=== PATIENT | male | born 1940 | race Caucasian/White ===

== ENCOUNTER 2018-06-10 19:14 | Inpatient (IN) ==
[2018-06-10] MEDS ORDERED: NS 1,000 ML IV ONE (20:51)
[2018-06-10] MEDS ORDERED: ALBUTEROL 2.5mg/3ml (0.083%) NEB AEROSOL ONE (20:52)
--- NOTE | 2018-06-10 20:55 | Emergency Department Report ---
General Adult HPI - General Chief complaint: Upper Respiratory Infection Stated complaint: dizzy, pos food poisoning Time Seen by Provider: 06/10/18 20:45 Source: patient, family Mode of arrival: ambulatory Limitations: no limitations - History of Present Illness HPI narrative: Patient began feeling ill 5 days ago, with cough, chills, nausea vomiting and diarrhea. Stomach symptoms lasted approximately 2-3 days and now resolved, however the patient has been having dizziness especially with standing, persistent cough, and increase of chronic low back pain. Earlier today the patient coughed vigorously, felt something pop in his back, and is actually feeling better with his back pain at this time. Patient's current complaints are primarily the cough generalized weakness and a feeling of lightheadedness and dizziness that are persistent. Pt admits decreased appetite with great decreased oral intake of fluids and solids of the past 2 days, but states that his appetite has improved over the last 2-3 hours. - Related Data Home Medications Medication Instructions Recorded Confirmed Acetaminophen [Acetaminophen Extra 1,000 mg PO Q6H PRN 06/10/18 06/10/18 Strength] Amlodipine [Norvasc] 5 mg PO DAILY 06/10/18 06/10/18 Aspirin/Acetaminophen/Caffeine 2 tab PO PRN PRN 06/10/18 06/10/18 [Excedrin Extra Strength Caplet] Cholecalciferol (Vitamin D3) 1,000 unit PO 06/10/18 06/10/18 [Vitamin D3] Citalopram [Celexa] 20 mg PO 06/10/18 06/10/18 Ezetimibe 10 mg PO 06/10/18 06/10/18 Latanoprost 1 drop EACH EYE 06/10/18 06/10/18 Lisinopril [Prinivil] 10 mg PO DAILY 06/10/18 06/10/18 Metoprolol Tartrate [Lopressor] 50 mg PO BID 06/10/18 06/10/18 Omeprazole [Prilosec] 20 mg PO ACB 06/10/18 06/10/18 Simvastatin [Zocor] 40 mg PO 06/10/18 06/10/18 Warfarin [Coumadin] 2.5 mg PO SUTUWETHSA@199906/10/18 06/10/18 Warfarin [Coumadin] 5 mg PO MOFR@199906/10/18 06/10/18 Allergies Allergy/AdvReac Type Severity Reaction Status Date / Time No Known Drug Allergies Allergy Unknown Verified 06/10/18 20:53 Review of Systems All systems: reviewed and negative except as stated PFS Patient Stated Medical History Transient Ischemic Attacks ( Yes TIA) Hypertension Yes Clinic Medical History (Last Updated 10/29/17 @ 14:32 by Liz Nava APRN) Atrial fibrillation (Acute Medical) Depression (Acute Medical) GERD (gastroesophageal reflux disease) (Acute Medical) HTN (hypertension) (Acute Medical) Rheumatic fever with heart involvement (Acute Medical) Stroke (Acute Medical) Surgical History: colonoscopy 2009. Denies major surgical procedures Family History: Family History (Last Updated 10/29/17 @ 14:27 by Liz Nava APRN) Father Cancer of lung Heart attack Mother High blood pressure Heart failure - Social History Smoking status: Former smoker Substance use type: does not use Alcohol intake frequency: does not drink Current residence: Apartment/Private Home Physical Exam - Limitations Limitations: no limitations - General General appearance: alert - Normal Exams: Head:: Normocephalic without trauma Eyes:: Pupils are PERRLA w/ EOMI, No scleral icterus, irritation, or foreign bodies noted ENMT:: No facial trauma, nasal exudates, pharyngeal erythema, or exudates are noted Neck:: Full range of motion, without adenopathy, JVD, bruits or thyromegaly Cardiovascular:: Regular rate and rhythm, without murmur or gallop, Pulses 2+ all extremities, capillary refill, <2 seconds all extremities Abdomen:: Bowel sounds positive, soft, non-tender, non-distended, no hepatosplenomegaly, masses or bruits noted Lymphatic:: No lymphadenopathy, or lymphedema noted Integumentary:: No rashes, hives, or bruising noted, hair and nails, without abnormality Neurological:: Patient is alert, and oriented, cranial nerves, motor/sensory/ cerebellar, exams w/o gross deficits, to observation Psychiatric:: Patient exhibits, appropriate attention, emotion and affect - Chest Chest inspection: Present: normal inspection, symmetric chest wall rise. Absent : tenderness - Respiratory Respiratory exam: Absent: normal lung sounds bilaterally (course bilateral with rhonchi on the right lateral and right base only), respiratory distress, wheezes , stridor, accessory muscle use, prolonged expiratory phase - Back Exam Back exam: Present: normal inspection, full ROM, tenderness (mild diffuse lumbar tenderness in the paraspinal region, no midline tenderness. Palpation of the area makes the pain improved.) Course Vital Signs Respiratory Rate 28 H 06/10/18 20:55 Pulse Oximetry 94 06/10/18 20:55 Pulse Rate 102 H 06/10/18 22:08 Respiratory Rate 24 06/10/18 22:08 Blood Pressure 127/75 06/10/18 22:08 Pulse Oximetry 92 06/10/18 22:08 Medical Decision Making - MDM Narrative Medical decision making narrative: Patient declines medication for pain or nausea Patient is given albuterol treatment times one, and 1 L normal saline IV fluid bolus CBC - white blood cell elevation CXR - right middle lobe consolidation consistent with acute community-acquired right middle lobe pneumonia CMP - minimal after maladies consistent with his illness UA - pending Lactate - normal While discussing with the patient his condition and diagnoses, patient is too weak and frail at this time to take care of himself at home, and feels like he needs hospitalization. Rocephin and Zithromax were started and IV - patient is discussed with Dr. Clemons, we will admit to medical, for IV antibiotics and respiratory therapy IV fluids and reevaluation tomorrow. - Lab Data Result diagrams: 06/10/18 21:00 06/10/18 20:59 Lab Results 06/10/18 06/10/18 06/10/18 Range/Units 20:59 21:00 21:31 WBC 13.2 H (4.5-11.0) T/MM3 RBC 4.43 L (4.50-5.90) M/MM3 Hgb 14.1 (13.5-17.5) GM/DL Hct 41.8 (41-53) % MCV 94.4 (80-100) UM3 MCH 31.8 (26-34) UUG MCHC 33.7 (31-37) GM/DL RDW Std Deviation 45.9 (36.9-50.2) FL Plt Count 141 (130-400) T/MM3 MPV 10.7 (9.4-12.4) UM3 Immature Gran % (Auto) Not performed Neut % (Auto) Not performed Lymph % (Auto) Not performed [place] % (Auto) Not performed Eos % (Auto) Not performed Baso % (Auto) Not performed Neut # (Auto) Not performed Lymph # (Auto) Not performed [place] # (Auto) Not performed Eos # (Auto) Not performed Baso # (Auto) Not performed Abs Immat Gran (auto) Not performed Neutrophils % (Manual) 53.0 (33-66) % Band Neutrophils % 19.0 H (0-6) % Lymphocytes % (Manual) 17.0 L (23-45) % Monocytes % (Manual) 11.0 H (0-9.0) % Neutrophils # (Manual) 7.0 (1.8-7.7) T/MM3 Band Neutrophils # 2.5 T/MM3 Lymphocytes # (Manual) 2.2 (1-4.8) T/MM3 Monocytes # (Manual) 1.5 H (0-0.8) T/MM3 RBC Morph Comment Normal Turbidity < 20 (0-20) Sodium 138 (136-146) MEQ/L Potassium 3.5 L (3.6-5) MEQ/L Chloride 101 (98-107) MEQ/L Carbon Dioxide 25 (22-30) MEQ/L Anion Gap 12 (5-15) meq/L BUN 25.0 H (9-20) MG/DL Creatinine 1.0 (0.8-1.5) mg/dL Estimated Creat Clear Not performed GFR Calculation 73 (>60) mL/min BUN/Creatinine Ratio 25 (6-26) RATIO Glucose 127 H (75-110) MG/DL Calculated Osmolality 272 (261-280) MOSM/KG Calcium 9.1 (8.4-10.2) MG/DL Total Bilirubin 1.20 (0.20-1.30) MG/DL Conjugated Bilirubin 0.00 (0.00-0.30) mg/dL Unconjugated Bilirubin 1.10 (0.00-1.1) mg/dL Icterus Index < 2 (0-7) AST 92 H (17-59) U/L ALT 66 H (1-50) U/L Alkaline Phosphatase 110 (38-126) U/L Total Protein 7.5 (6.3-8.2) g/dL Albumin 4.0 (3.5-5.0) g/dL Globulin 3.5 (2.4-3.6) G/DL Albumin/Globulin Ratio 1.1 (1.1-2.2) RATIO Plasma Lactate 1.4 (0.6-2.2) MMOL/L Specimen Hemolysis < 15 (0-25) Ur Collection Type Urine, void-cc/notcc Urine Color Shayna (YELLOW) Urine Clarity Clear Urine pH 5.5 (5.0-8.0) Ur Specific Hector 1.025 (1.015-1.025) Urine Protein 3+ A (NEGATIVE) Urine Glucose (UA) Negative (NEGATIVE) Urine Ketones Trace A (NEGATIVE) Urine Occult Blood 3+ A (NEGATIVE) Urine Nitrate Negative (NEGATIVE) Urine Bilirubin 1+ A (NEGATIVE) Urine Urobilinogen 1.0 (NORMAL) EU/DL Ur Leukocyte Esterase Negative (NEGATIVE) Urine RBC 0-1 (0-3) /HPF Urine WBC 1-3 (0-5) /HPF Ur Squamous Epith Cells 0-5 Amorphous Sediment Few Urine Bacteria 2+ H (NEGATIVE) Urine Mucus Present Ur Culture Indicated? Cult not indicated Disposition Clinical Impression: Right middle lobe pneumonia Qualifiers: Pneumonia type: due to unspecified organism Qualified Code(s): J18.1 - Lobar pneumonia, unspecified organism Disposition: 02 To [facility] Acute Care Condition: Improved Prescriptions: No Action Lisinopril [Prinivil] 10 mg PO DAILY Cholecalciferol (Vitamin D3) [Vitamin D3] 1,000 unit PO HS Warfarin [Coumadin] 2.5 mg PO SUTUWETHSA@1999 Amlodipine [Norvasc] 5 mg PO DAILY Citalopram [Celexa] 20 mg PO HS Simvastatin [Zocor] 40 mg PO HS Metoprolol Tartrate [Lopressor] 50 mg PO BID Ezetimibe 10 mg PO HS Latanoprost 1 drop EACH EYE HS Acetaminophen [Acetaminophen Extra Strength] 1,000 mg PO Q6H PRN PRN Reason: Pain Aspirin/Acetaminophen/Caffeine [Excedrin Extra Strength Caplet] 2 tab PO PRN PRN PRN Reason: Pain Omeprazole [Prilosec] 20 mg PO ACB Warfarin [Coumadin] 5 mg PO MOFR@1999 Referrals: Karthik Navarro MD [Primary Care Provider] - - Seen By: physician
[2018-06-10] MEDS ORDERED: AZITHROMYCIN 250 MG TABLET PO ONE (21:47)
[2018-06-10] MEDS ORDERED: AZITHROMYCIN IV 500 MG in NS 250ml 250 ML IV ONE (21:49)
[2018-06-10] MEDS ORDERED: HYDROCODONE/APAP 5mg/325mg TABLET PO ONE (21:56)
[2018-06-10] MEDS ORDERED: ACETAMINOPHEN 650 MG SUPPOSITORY PR PRN (22:27)
[2018-06-10] MEDS ORDERED: SENNA + DOCUSATE TABLET PO PRN (22:27)
[2018-06-10] MEDS ORDERED: HYDROCODONE/APAP 5mg/325mg TABLET PO PRN (22:27)
[2018-06-10] MEDS ORDERED: ONDANSETRON 4 MG/2 ML INJECTION IVP PRN (22:27)
[2018-06-10] MEDS: NS 1,000 ML IV SCH (23:03)
[2018-06-10] MEDS ORDERED: FALL RISK - PHARMACY CONSULT MC ONE (23:12)
[2018-06-10] MEDS ORDERED: ALBUTEROL/IPRATROPIUM 2.5mg-0.5mg/3ml NEB AEROSOL PRN (23:36)
--- NOTE | 2018-06-10 23:41 | History & Physical Report ---
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 He is currently living alone as his is recovering from a stroke at the shelter, she is a survivor of GBM. He states that he was ill over the weekend with vomiting and diarrhea, that has subsided but today his cough was worse with production of brown mucus. In the ER, he was discovered to have a WBC of 13.2 with 19% bands, as well as a RML infiltrate on CXR. Rocephin, Zmax were begun and he is admitted for further evaluation and management of CAP. Review of Systems - Constitutional Constitutional: Present: anorexia, fever(s), weakness - Cardiovascular Cardiovascular: Present: dyspnea on exertion. Absent: chest pain, palpitations , syncope - Gastrointestinal Gastrointestinal: Present: diarrhea - Musculoskeletal Musculoskeletal: Absent: neck pain, stiffness - Neurological Neurological: Absent: abnormal gait, focal weakness Past Medical History Medical History: Medical History (Last Updated 06/11/18 @ 11:06 by Hilaria Jimenes APRN) CVA (cerebral vascular accident) Presbyesophagus Atrial fibrillation Depression GERD (gastroesophageal reflux disease) HTN (hypertension) Rheumatic fever with heart involvement Stroke Surgical History: colonoscopy 2009. Denies major surgical procedures Family History: Family History (Last Updated 10/29/17 @ 14:27 by Liz Nava APRN) Father Cancer of lung Heart attack Mother High blood pressure Heart failure Family History Updates: Father of lung cancer, he was a heavy smokers Family History: As Above - Social History Smoking status: Former smoker (Quit 10-12 years ago) Substance use type: does not use Alcohol intake frequency: a few times a month Housing: house Household members: spouse (she currently resides in skilled care, as above) Current occupational status: previously employed (As an [employer]) Medications Home Medications Medication Instructions Recorded Confirmed Type Acetaminophen [Acetaminophen Extra 1,000 mg PO Q6H PRN 06/10/18 06/10/18 History Strength] Amlodipine [Norvasc] 5 mg PO DAILY 06/10/18 06/10/18 History Aspirin/Acetaminophen/Caffeine 2 tab PO PRN PRN 06/10/18 06/10/18 History [Excedrin Extra Strength Caplet] Cholecalciferol (Vitamin D3) 1,000 unit PO HS 06/10/18 06/10/18 History [Vitamin D3] Citalopram [Celexa] 20 mg PO 06/10/18 06/10/18 History Ezetimibe 10 mg PO HS 06/10/18 06/10/18 History Latanoprost 1 drop EACH EYE 06/10/18 06/10/18 History Lisinopril [Prinivil] 10 mg PO DAILY 06/10/18 06/10/18 History Metoprolol Tartrate [Lopressor] 50 mg PO BID 06/10/18 06/10/18 History Omeprazole [Prilosec] 20 mg PO ACB 06/10/18 06/10/18 History Simvastatin [Zocor] 40 mg PO HS 06/10/18 06/10/18 History Warfarin [Coumadin] 2.5 mg PO SUTUWETHSA@199906/10/18 06/10/18 History Warfarin [Coumadin] 5 mg PO MOFR@199906/10/18 06/10/18 History Allergies Allergy/AdvReac Type Severity Reaction Status Date / Time No Known Drug Allergies Allergy Unknown Verified 06/10/18 20:53 Exam Vital Signs: Temperature 99.1 F 06/10/18 22:38 Pulse Rate 104 H 06/10/18 22:50 Respiratory Rate 22 06/10/18 22:50 Blood Pressure 97/63 06/10/18 22:38 Pulse Oximetry 92 06/10/18 22:50 Height/Weight/BMI: Height 6 ft 2 in Weight 109.4 kg Body Mass Index 30.9 - Constitutional Present: no acute distress, well nourished, well developed - Routine HEENT Exam Head: Present: normocephalic, atraumatic Eye: Present: EOMI, PERRL ENT: Present: mucous membranes dry - Routine Neck Exam Present: supple, full ROM. Absent: JVD - Routine Respiratory Exam Present: dyspnea (Trace increased respiratory rate), decreased breath sounds, rhonchi (R>L). Absent: accessory muscle use - Routine Cardiovascular Exam Present: RRR, murmur - Routine Abdominal Exam Present: soft, normoactive bowel sounds, non distended. Absent: tenderness - Routine Skin Exam Present: intact. Absent: rash - Routine Neurological Exam Present: alert, oriented X3, CN II-XII intact. Absent: motor deficit - Routine Psychiatric Exam Present: normal affect, normal thought process - Additional findings Additional findings: Exam performed using telemedicine equipment with the assistance of the bedside nurse. Results - Labs CBC & Chem 7: 06/11/18 01:36 06/11/18 01:36 Assessment and Plan Assessment and Plan: Anthony is admitted to continue IVF, IV Abx, Nebulized breathing treatments, and supplemental O2 as needed. If he does not improve as would expect clinically, would have a low threshold for the addition of anaerobic coverage given his recent GI illness with vomiting. The majority of his home medications are continued, will hold antihypertensives. He was placed on 0.5L O2 by [place] at the time of my eval for an O2 sat of 88%. Further symptomatic, supportive, and diagnostic cares will be provided as the current workup, or as changes in his clinical scenario, indicate. Plan of care was discussed at the time of my eval and he expressed understanding and a desire to proceed. DVT Prophylaxis: SCD's - Physician Narrative Physician: Izzy Urbina MD Narrative: Date: 06/11/18 Time: 1505 Please refer to supplemental note dictated 06/11/18 for additional thoughts/ updates. Sepsis Assessment - Evaluation SIRS Criteria: WBC > 12,000, Bands > 10% Severe Sepsis: none seen Hospital Course Summary Disclaimer: The visit summary below is not to be considered part of the above Progress Note.
[2018-06-10] MEDS ORDERED: ALBUTEROL 2.5mg/0.5ml (0.5%) NEB AEROSOL PRN (23:52)
[2018-06-11] MEDS: OMEPRAZOLE 20 MG CAPSULE PO SCH (06:45)
[2018-06-11] MEDS ORDERED: ALBUTEROL/IPRATROPIUM 2.5mg-0.5mg/3ml NEB AEROSOL SCH (07:00)
--- NOTE | 2018-06-11 08:27 | XRay Report ---
INDICATION: cough, back pain, dizziness PROCEDURE: CHEST 2-VIEWS UPRIGHT (PA & LAT) Encounter: Initial COMPARISON: April 26, 2015 FINDINGS: New bilateral airspace disease, somewhat diffusely but more focal in the lingula and right lower lobe. No pneumothorax or effusion. Heart size and mediastinal contours are stable. Hiatal hernia. Impression: Bilateral airspace disease could represent pneumonia with peribronchial spread of infection and/or edema. Recommend clinical and laboratory correlation. .
[2018-06-11] MEDS ORDERED: LISINOPRIL 10 MG TABLET PO SCH (09:00)
[2018-06-11] MEDS ORDERED: ENOXAPARIN 40 MG/0.4 ML INJECTION SQ SCH (09:00)
[2018-06-11] MEDS: AMLODIPINE 5 MG TABLET PO SCH (09:08)
[2018-06-11] MEDS: NS 1,000 ML IV SCH ×4 (10:05→19:34)
--- NOTE | 2018-06-11 10:58 | History & Physical Report ---
History of Present Illness Date: 06/11/18 Chief complaint: Chills, fever, coughing HPI: Mr Kilgore is a pleasant 78 old male who presented to the emergency room last evening for evaluation of cough, chills, nausea and vomiting. Patient reports he 1st began having symptoms last Wednesday 06/06 following volunteering at [facility]. He thought at that time that he perhaps had food poisoning. He got home in the afternoon and had persistent vomiting and diarrhea 2-3 days. He noticed that he had started have a small cough prior to this. Over the past 24 hours. He is "fill worse, although the GI symptoms have improved. He started having chills, fever with increased cough. At times he noted feeling short of breath. Reports diminished appetite, was unable to keep in oral fluids or solids for the past 2 days. Given worsening symptoms as in to the emergency room for acute evaluation. 1st is did reveal leukocytosis with white count 13.2, 19% bandemia. Potassium was found be slightly low at 3.5 and LFTs elevated with an AST of 94 and ALP of 66. Initial venous lactate was 1.4. Urinalysis showing 3+ protein, ketones, blood, bilirubin, and 2+ bacteria. In the emergency room, he was tachycardic up to 107 and tachypneic 30+/min. He was afebrile with a temperature max of 99.1, however, he did feel chills. Room air saturations dipped to 89% and patient was placed on oxygen by nasal cannula.'s x-ray did reveal pneumonia. Given these findings, accompanied with clinical symptoms. Patient was admitted as an inpatient under the hospitalist services for continued evaluation and treatment. Review of Systems All systems PM: 10-point ROS was reviewed, no additional remarkable complaints except - Constitutional Constitutional: Present: anorexia, chills, fatigue, fever(s), lethargy - Respiratory Respiratory: Present: cough, dyspnea - Gastrointestinal Gastrointestinal: Present: as per HPI - Musculoskeletal Musculoskeletal: Present: back pain (Chronic) Past Medical History Medical History: Medical History (Last Updated 06/11/18 @ 11:06 by Hilaria Jimenes, KEN) CVA (cerebral vascular accident) Presbyesophagus Atrial fibrillation Depression GERD (gastroesophageal reflux disease) HTN (hypertension) Rheumatic fever with heart involvement Stroke Surgical History: colonoscopy 2009. Lumbar spine surgery- 3 fractured vertebrae. Heart Cath- 2009- [facility]. Right knee arthroscopic - 2014- Dr Canela. Cardioversion-2010, Dr. Lund. Barium swallow- 10/2017. Impression: 1. Mild to moderate presbyesophagus. 2. Moderate gastroesophageal reflux. 3. Moderately sized sliding esophageal hiatal hernia with a partially. intrathoracic stomach. 4. Small duodenal diverticulum. 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 Medications Home Medications Medication Instructions Recorded Confirmed Type Acetaminophen [Acetaminophen Extra 1,000 mg PO Q6H PRN 06/10/18 06/10/18 History Strength] Amlodipine [Norvasc] 5 mg PO DAILY 06/10/18 06/10/18 History Aspirin/Acetaminophen/Caffeine 2 tab PO PRN PRN 06/10/18 06/10/18 History [Excedrin Extra Strength Caplet] Cholecalciferol (Vitamin D3) 1,000 unit PO HS 06/10/18 06/10/18 History [Vitamin D3] Citalopram [Celexa] 20 mg PO HS 06/10/18 06/10/18 History Ezetimibe 10 mg PO HS 06/10/18 06/10/18 History Latanoprost 1 drop EACH EYE 06/10/18 06/10/18 History Lisinopril [Prinivil] 10 mg PO DAILY 06/10/18 06/10/18 History Metoprolol Tartrate [Lopressor] 50 mg PO BID 06/10/18 06/10/18 History Omeprazole [Prilosec] 20 mg PO ACB 06/10/18 06/10/18 History Simvastatin [Zocor] 40 mg PO 06/10/18 06/10/18 History Warfarin [Coumadin] 2.5 mg PO [id number]@199906/10/18 06/10/18 History Warfarin [Coumadin] 5 mg PO MOFR@199906/10/18 06/10/18 History Allergies Allergy/AdvReac Type Severity Reaction Status Date / Time No Known Drug Allergies Allergy Unknown Verified 06/10/18 20:53 Exam Vital Signs: Temperature 96.9 F 06/11/18 07:25 Pulse Rate 93 06/11/18 07:25 Respiratory Rate 28 H 06/11/18 08:58 Blood Pressure 137/71 06/11/18 07:25 Pulse Oximetry 96 06/11/18 08:58 Height/Weight/BMI: Height 1.88 m Weight 109.1 kg Body Mass Index 30.9 - Constitutional Present: no acute distress, well nourished, well developed - Routine HEENT Exam Eye: Present: EOMI ENT: Present: mucous membranes moist, dentition normal - Routine Respiratory Exam Comments: Coarse breath sounds posterior right greater than left - Routine Cardiovascular Exam Present: S1, S2, no murmur, irregular rhythm. Absent: murmur - Routine Abdominal Exam Present: soft, normoactive bowel sounds, non distended. Absent: tenderness - Routine Extremities Exam Present: edema (trace bilateral lower ext) - Routine Skin Exam Present: dry, warm - Routine Neurological Exam Present: alert, oriented X3, CN II-XII intact - Routine Psychiatric Exam Present: normal affect Results - Labs CBC & Chem 7: 06/11/18 01:36 06/11/18 01:36 Microbiology Results: Microbiology 06/11/18 09:26 Sputum, Expectorated Gram Stain - Final Not performed 06/11/18 09:26 Sputum, Expectorated Sputum Culture - Preliminary Culture Initiated - Results Pending Assessment and Plan (1) Severe sepsis Current visit: Yes Status: Acute (2) Pneumonia Current visit: Yes Status: Acute Assessment and Plan: Impression Sepsis 1. CAP 2. Leukocytosis, 3. Bandemia, 4. Tachycardia, 5. Tachypnea Community acquired pneumonia Hypoxia Requiring oxygen Hypokalemia- POA Elevated LFTs Tachycardia History of atrial fibrillation Anticoagulation on warfarin Hypertension presbyesophagus GERD Plan Admit to inpatient status under the care of Dr. Urbina for sepsis and pneumonia. Will continue on IV Rocephin and IV Azithromycin for pulmonary coverage. Sputum cultures pending. will repeat a venous lactate as the last one did trend up Continue on scheduled DuoNeb breathing treatments 4 times a day. Currently on 2 liters of oxygen by nasal cannula Added Robitussin to help with coughing. Consultation placed to speech therapy given question for dysphagia. Recent Vomiting, hx of Presbyesophagus Replace oral potassium and monitor Home antihypertensives remain on hold at time of admission given sepsis This patient on cardiac telemetry. Given irregular heartbeat and known history of atrial fibrillation SCDs to bilateral lower extremity for DVT prophylaxis. Check CMP tomorrow morning to follow elevated LFTs Consultation with PT and OT, Given patient's weakness secondary to acute illness Will discuss further orders and plan of care with attending, Dr. Urbina At time of discharge medical care will return to primary care provider, Dr Navarro DVT Prophylaxis: SCD's, Coumadin Resuscitation Status: Full Code - Physician Narrative Physician: Izzy Urbina MD Narrative: Date: 06/11/18 Time: 1520 I have independently evaluated and examined this patient. I reviewed the chart, the patient's history, and the BICYCLE [employer] ASSEMBLER/PA's documented findings as above. We discussed and formulated the assessment and plan as above with additions as below: Mr. Kilgore was seen late this morning and reported that he is "sick". He describes onset of cough 5-6 days ago which is worsened significantly in the past 1-2 days. In between onset of cough and recent deterioration he had a 2 to three-day episode of nausea, vomiting, and diarrhea which he attributed to food poisoning. He has had episodic "spells" when he abruptly feels hot, shaky, anxious, dyspneic, and weak with increasing frequency since he's been ill but reports that he's had similar episodes every couple of weeks over the past 6 months. Nursing reports that the patient is hypertensive and tachycardic in conjunction with these "spells". Patient is moderately anxious when seen and has some push of speech He is alert, provides history although has to be kept on track Left ptosis, oropharynx clear, neck supple Respirations nonlabored but airflow is diminished with coarse breath sounds in the left lower lobe posteriorly; no wheezing appreciated but patient coughing nonstop at time of my assessment. Irregular cardiac rhythm, S1-S2 Chest x-ray reviewed by myself revealing bilateral infiltrates, lingula and right lower lobe predominantly; mild increased vascular markings may also be present. Leukocytosis with left shift present last night but improved this morning, hypokalemic, increasing lactic acid-most recently 2.1. Minor elevation of AST/ ALT. Blood pressure/heart rate labile-tends to be hypertensive and heart rate up to 119 although noted that beta ovi missed earlier after transient hypotension x 1 last night. Severe sepsis due to pneumonia-blood cultures to be obtained, urine antigens will be obtained. Continue current antibiotics for community-acquired pneumonia pending additional data. Low-dose lorazepam added for anxiety; add prednisone for pulmonary inflammation. ER/overnight records reviewed. Sepsis Assessment - Evaluation SIRS Criteria: pulse > 90 beats/minute, WBC > 12,000, Bands > 10%, RR > 20 Severe Sepsis: lactate > 2.0 mg/dL Hospital Course Summary Disclaimer: The visit summary below is not to be considered part of the above Progress Note. Hospital Course: Impression Sepsis 1. CAP 2. Leukocytosis, 3. Bandemia, 4. Tachycardia, 5. Tachypnea Community acquired pneumonia Hypoxia Requiring oxygen Hypokalemia- POA Elevated LFTs Tachycardia History of atrial fibrillation Anticoagulation on warfarin Hypertension presbyesophagus GERD Plan Admit to inpatient status under the care of Dr. Urbina for sepsis and pneumonia. Will continue on IV Rocephin and IV Azithromycin for pulmonary coverage. Sputum cultures pending. will repeat a venous lactate as the last one did trend up Continue on scheduled DuoNeb breathing treatments 4 times a day. Currently on 2 liters of oxygen by nasal cannula Added Robitussin to help with coughing. Consultation placed to speech therapy given question for dysphagia. Recent Vomiting, hx of Presbyesophagus Replace oral potassium and monitor Home antihypertensives remain on hold at time of admission given sepsis This patient on cardiac telemetry. Given irregular heartbeat and known history of atrial fibrillation SCDs to bilateral lower extremity for DVT prophylaxis. Check CMP tomorrow morning to follow elevated LFTs Consultation with PT and OT, Given patient's weakness secondary to acute illness Will discuss further orders and plan of care with attending, Dr. Urbina At time of discharge medical care will return to primary care provider, Dr Navarro
--- NOTE | 2018-06-11 11:07 | Pharmacy Consult ---
Pharmacy Consult-[facility] - Laboratory Information ENOXAPARIN THERAPY: A. Fib. Patient with hx of warfarin therapy. Warfarin therapy continued from home at 2.5mg on Sat, Sat, Sat, , Sat and 5mg on Mon, Fri. Enoxaparin 40mg SQ daily ordered until INR within therapeutic range. INR = 2.81 DC'd the Enoxaparin.
[2018-06-11] MEDS ORDERED: WARFARIN - PHARMACY CONSULT MC ONE (11:45)
[2018-06-11] MEDS: GUAIFENESIN 200mg/10ml ORAL LIQUID PO PRN (12:03)
[2018-06-11] MEDS: WARFARIN 2.5 MG TABLET PO SCH (12:20)
--- NOTE | 2018-06-11 12:23 | Pharmacy Consult ---
Pharmacy Consult-Warfarin - Laboratory Information 06/10/18 06/10/18 06/10/18 20:59 20:59 21:00 Hgb 14.1 Hct 41.8 INR 2.81 H AST 92 H ALT 66 H Albumin 4.0 06/11/18 01:36 Hgb 13.3 L Hct 40.3 L INR AST ALT Albumin WARFARIN THERAPY: Anthony is 78yo M admitted with CAP, multiple comorbidities. Hx of A. Fib. for which he is on outpatient warfarin dosing of 5mg on Mon & Fri , 2.5mg on all other days of week. His INR on admission = 2.81 (yesterday). He did receive a dose of Enoxaparin 40mg SQ this am. Will continue the home dose of warfarin DC'd the Enoxaparin. Ordered INR's starting tomorrow. Noted LFT's are elevated which can effect the INR. Also drug - drug interactions with Citalopram and Omeprazole which can elevate INR. But had these at home so likely stabilized. Azithromycin IV can significantly increase the INR as well. Will watch closely and adjust as needed. Thank you.
[2018-06-11] MEDS: ALBUTEROL/IPRATROPIUM 2.5mg-0.5mg/3ml NEB AEROSOL SCH ×3 (12:32→20:47)
[2018-06-11] MEDS ORDERED: PredniSONE 20 MG TABLET PO ONE (15:39)
[2018-06-11] MEDS: METHYLPREDNISOLONE SOD SUCC 125mg/2ml INJECTION IVP SCH (17:50)
[2018-06-11] MEDS ORDERED: ACETAMINOPHEN 325 MG TABLET PO PRN (19:45)
[2018-06-11] MEDS ORDERED: NON-FORMULARY MEDICATION 1 EACH EACH (Cholecalciferol (Vitamin D3) [Vitamin D3] 1,000 UNIT PO SCH (21:00)
[2018-06-11] MEDS: EZETIMIBE 10 MG TABLET PO SCH (21:03)
[2018-06-11] MEDS: LATANOPROST 0.005% EYE DROPS 2.5ml EACH EYE SCH (21:03)
[2018-06-11] MEDS: CITALOPRAM 20 MG TABLET PO SCH (21:03)
[2018-06-11] MEDS: SIMVASTATIN 40 MG TABLET PO SCH (21:03)
[2018-06-11] MEDS: PIPERACILLIN/TAZOBACTAM 3.375 GM in NS 100 ML IV SCH (21:03)
[2018-06-11] MEDS ORDERED: FUROSEMIDE 40 MG/4 ML INJECTION IVP ONE (21:19)
[2018-06-11] MEDS: AZITHROMYCIN IV 500 MG in NS 250ml 250 ML IV SCH (21:50)
[2018-06-11] MEDS ORDERED: CEFTRIAXONE 1 G in NS 100 ML IV SCH (22:00)
[2018-06-11] MEDS: METOPROLOL 5mg/5ml INJECTION IVP PRN (23:25)
[2018-06-12] MEDS: METHYLPREDNISOLONE SOD SUCC 125mg/2ml INJECTION IVP SCH ×3 (00:17→17:50)
[2018-06-12] MEDS ORDERED: FALL RISK - PHARMACY CONSULT MC ONE (00:46)
[2018-06-12] MEDS: PIPERACILLIN/TAZOBACTAM 3.375 GM in NS 100 ML IV SCH ×5 (01:52→20:07)
[2018-06-12] MEDS: METOPROLOL 5mg/5ml INJECTION IVP PRN (04:28)
[2018-06-12] MEDS: SALINE FLUSH 10ml SYRINGE IVF PRN (04:29)
[2018-06-12] MEDS: OMEPRAZOLE 20 MG CAPSULE PO SCH (06:28)
--- NOTE | 2018-06-12 07:18 | Pharmacy Consult ---
Pharmacy Consult-Warfarin - Laboratory Information 06/10/18 06/10/18 06/10/18 20:59 20:59 21:00 Hgb 14.1 Hct 41.8 INR 2.81 H AST 92 H ALT 66 H Albumin 4.0 06/11/18 06/12/18 06/12/18 01:36 04:12 04:12 Hgb 13.3 L 13.5 Hct 40.3 L 41.4 INR AST 57 ALT 50 Albumin 3.8 06/12/18 04:12 Hgb Hct INR 4.50 H* AST ALT Albumin - Consult Information Warfarin Consult: Day 3 Antohny was 78yo M admitted with CAP, multiple comorbidities. Hx of A. Fib. for which he is on outpatient warfarin dosing of 5mg on Mon & Fri, 2.5mg on all other days of week. AST is still elevated and ALT is within normal limits. Date INR Dose 06/10 2.81 Not taken 06/11 ---- 2.5 mg 06/12 4.50 No dose today I am ordering no dose of warfarin to be given today. I believe the INR is elevated due to the IV Azithromycin. Also drug - drug interactions with Citalopram and Omeprazole which can elevate INR. But had these at home so likely stabilized. The pharmacy will watch closely and adjust as needed. Thank you, Raúl Culp, Pharmacist. .
[2018-06-12] MEDS ORDERED: PredniSONE 20 MG TABLET PO SCH (08:00)
[2018-06-12] MEDS: ALBUTEROL/IPRATROPIUM 2.5mg-0.5mg/3ml NEB AEROSOL SCH ×4 (08:27→20:05)
[2018-06-12] MEDS ORDERED: FUROSEMIDE 40 MG/4 ML INJECTION IVP ONE (08:31)
--- NOTE | 2018-06-12 08:36 | XRay Report ---
Indication: pneumonia, acute hypoxic resp failure PROCEDURE: XR chest 1V: Encounter: Initial Comparison: June 11, 2018 Findings: Worsening airspace disease in the right upper and right lower lobe with stable persistent scattered airspace opacities throughout the remaining lung burdick. No pneumothorax or significant effusion. Cardiac silhouette is moderately enlarged. Mediastinal contours are stable. Pulmonary vascularity is indistinct. Impression: Worsening appearance of the chest could be due to pneumonia and/or edema. .
[2018-06-12] MEDS: AMLODIPINE 5 MG TABLET PO SCH (09:33)
--- NOTE | 2018-06-12 10:38 | Cardiology Consult Note ---
History of Present Illness Consult date: 06/12/18 Requesting physician: Izzy Urbina Consult reason: congestive heart failure Chief complaint: dyspnea History of present illness: Anthony is a 78 year old male who is known to Dr. Lund's practice with a history of PAF, CAD HTN and HLD who presented to the ED with worsening cough, chills, nausea and vomiting. He was last seen by Dr. Lund [id number]. He began having symptoms last Wednesday 06/06 following volunteering at [facility]. He had persistent vomiting and diarrhea 2-3 days. He started having chills, fever with increased cough. At times he noted feeling short of breath and reports diminished appetite, unable to keep in oral fluids or solids. In the ED, WBC was 13.2, 19% bandemia, K+ 3.5, AST 94 and ALT 66. Urinalysis showing 3+ protein , ketones, blood, bilirubin, and 2+ bacteria. He was tachycardic, HR 107, RR 30+ /min. Temp was 99.1, however he did feel chills. Room air sats 89% and O2 was applied. CXR revealed pneumonia. He was admitted as an inpatient under the hospitalist services for continued evaluation and treatment. He has since developed symptoms of congestive heart failure and Dr. Andrea is consulted for further evaluation and treatment and we appreciate the consult. 2D echo pending; Last Echo from 03/11/2011: EF 75%, PHTN, PAP 35mmHg, trace TR. Anthony is seen in CCU. He is coughing frequently and producing thick brown sputum. He is dyspneic in mild distress on O2 /NC at 4L/min. He denies chest pain, pressure, palpitations. Review of Systems - Constitutional Constitutional: Present: anorexia, chills, fatigue, fever(s), weakness - EENMT Eyes: Absent: change in vision Balance: Absent: vertigo Mouth/Throat: Absent: sore throat - Cardiovascular Cardiovascular: Present: dyspnea on exertion, orthopnea. Absent: chest pain, palpitations, syncope Vascular: Absent: pedal edema - Respiratory Respiratory: Present: cough, dyspnea, dyspnea on exertion - Gastrointestinal Gastrointestinal: Present: diarrhea, nausea, vomiting. Absent: abdominal pain, constipation - Genitourinary Genitourinary: Absent: dysuria - Integumentary/Breasts Integumentary: Absent: rash - Neurological Neurological: Absent: dizziness - Endocrine Endocrine: Absent: palpitations PFSH Patient Stated Medical History Transient Ischemic Attacks ( Yes TIA) Cataracts Yes Dental Problems Yes Glaucoma Yes Cardiac Arrhythmia Yes:A Fib Hypertension Yes Myocardial Infarction Yes Hiatal Hernia Yes Osteoarthritis Yes Shingles Yes Clinic Medical History (Last Updated 06/11/18 @ 15:22 by Izzy Urbina MD) CVA (cerebral vascular accident) (Acute Medical) Presbyesophagus (Acute Medical) Atrial fibrillation (Acute Medical) Depression (Acute Medical) GERD (gastroesophageal reflux disease) (Acute Medical) HTN (hypertension) (Acute Medical) Rheumatic fever with heart involvement (Acute Medical) Surgical History: colonoscopy 2009. Lumbar spine surgery- 3 fractured vertebrae. Heart Cath- 2009- [facility]. Right knee arthroscopic - 2014- Dr Canela. Cardioversion-2010, Dr. Lund. Barium swallow- 10/2017. Impression: 1. Mild to moderate presbyesophagus. 2. Moderate gastroesophageal reflux. 3. Moderately sized sliding esophageal hiatal hernia with a partially. intrathoracic stomach. 4. Small duodenal diverticulum. 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[facility]) Current residence: Apartment/Private Home Medications Home Medications Medication Instructions Recorded Confirmed Type Acetaminophen [Acetaminophen Extra 1,000 mg PO Q6H PRN 06/10/18 06/10/18 History Strength] Amlodipine [Norvasc] 5 mg PO DAILY 06/10/18 06/10/18 History Aspirin/Acetaminophen/Caffeine 2 tab PO PRN PRN 06/10/18 06/10/18 History [Excedrin Extra Strength Caplet] Cholecalciferol (Vitamin D3) 1,000 unit PO HS 06/10/18 06/10/18 History [Vitamin D3] Citalopram [Celexa] 20 mg PO HS 06/10/18 06/10/18 History Ezetimibe 10 mg PO HS 06/10/18 06/10/18 History Latanoprost 1 drop EACH EYE HS 06/10/18 06/10/18 History Lisinopril [Prinivil] 10 mg PO DAILY 06/10/18 06/10/18 History Metoprolol Tartrate [Lopressor] 50 mg PO BID 06/10/18 06/10/18 History Omeprazole [Prilosec] 20 mg PO ACB 06/10/18 06/10/18 History Simvastatin [Zocor] 40 mg PO HS 06/10/18 06/10/18 History Warfarin [Coumadin] 2.5 mg PO SUTUWETHSA@199906/10/18 06/10/18 History Warfarin [Coumadin] 5 mg PO MOFR@199906/10/18 06/10/18 History Allergies Allergy/AdvReac Type Severity Reaction Status Date / Time No Known Drug Allergies Allergy Unknown Verified 06/10/18 20:53 Exam Vital signs: Temperature 99.0 F 06/12/18 04:07 Pulse Rate 85 06/12/18 07:00 Respiratory Rate 30 H 06/12/18 08:30 Blood Pressure 163/85 H 06/12/18 07:00 Pulse Oximetry 93 06/12/18 08:30 - Constitutional mild distress, cooperative - Routine HEENT Exam Head: Present: normocephalic ENT: Present: mucous membranes moist - Routine Neck Exam Absent: JVD, carotid bruit - Routine Chest/Breast/Axilla Exam Chest wall: Absent: tenderness - Routine Respiratory Exam Present: dyspnea, diminished air movement. Absent: CTA bilaterally (coarse throughout) - Routine Cardiovascular Exam Present: no murmur, irregularly irregular - Routine Abdominal Exam Present: soft, non tender - Routine Extremities Exam Present: no edema, pulses intact - Routine Skin Exam Present: intact, dry, warm - Routine Neurological Exam Present: alert, oriented X3 - Routine Psychiatric Exam Present: normal affect Results 06/12/18 04:12 06/12/18 04:12 Cardiac Enzymes 06/11/18 06/11/18 06/12/18 Range/Units 15:28 20:12 04:12 AST 57 (17-59) U/L Troponin I 0.106 0.372 H D 0.220 H (0-0.12) ng/ml CBC 06/12/18 Range/Units 04:12 WBC 14.6 H (4.5-11.0) T/MM3 RBC 4.42 L (4.50-5.90) M/MM3 Hgb 13.5 (13.5-17.5) GM/DL Hct 41.4 (41-53) % Plt Count 160 (130-400) T/MM3 Neut # (Auto) Not performed Lymph # (Auto) Not performed Gordon # (Auto) Not performed Eos # (Auto) Not performed Baso # (Auto) Not performed Comprehensive Metabolic Panel 06/11/18 06/12/18 Range/Units 20:12 04:12 Sodium 143 142 (136-146) MEQ/L Potassium 4.2 D 3.5 L (3.6-5) MEQ/L Chloride 108 H 105 (98-107) MEQ/L Carbon Dioxide 22 24 (22-30) MEQ/L BUN 16.0 17.0 (9-20) MG/DL Creatinine 0.8 D 0.8 (0.8-1.5) mg/dL Glucose 174 H 182 H (75-110) MG/DL Calcium 8.6 8.7 (8.4-10.2) MG/DL AST 57 (17-59) U/L ALT 50 (1-50) U/L Alkaline Phosphatase 118 (38-126) U/L Total Protein 7.2 (6.3-8.2) g/dL Albumin 3.8 (3.5-5.0) g/dL Intake and Output 06/11/18 06/12/18 06/12/18 22:59 06:59 14:59 Intake Total 1396.166 / 1396.166 562.167 / 562.167 Output Total 665 / 665 1597 / 1597 65 / 65 Balance 731.166 / 731.166 -1034.833 / -1034.833 -65 / -65 Intake: IV 1396.166 / 1396.166 322.167 / 322.167 Azithromycin IV 500 mg In NS 27.833 / 27.833 222.167 / 222.167 250ml 250 ml @ 167 mls/hr IV Q24H JOSE A Rx#:[id number] Ns 1,000 ml @ 100 mls/hr IV . 1268.333 / 1268.333 Q10H JOSE A Rx#:[id number] Piperacillin/Tazobactam 3.375 100 / 100 100.000 / 100.000 gm In Ns 100 ml @ 200 mls/hr IV Q6H JOSE A Rx#:[id number] Oral 240 / 240 Output: Urine 75 / 75 Urine Amount (Catheter) 590 / 590 1597 / 1597 65 / 65 Other: Urine Appearance Clear Clear Clear Urine Color Pale Yellow Yellow Yellow [place] Urine Odor Normal # Incontinent Voids 1 Weight 240 lb 8.389 oz - Imaging and Cardiology Echo: pending Imaging & Cardiology Narrative: Date of Exam: 06/12/18 Ordering Provider: Izzy Urbina MD Type of Exam(s): XR chest 1V Reason for Exam(s): pneumonia, acute hypoxic resp failure Indication: pneumonia, acute hypoxic resp failure PROCEDURE: XR chest 1V: Encounter: Initial Comparison: June 11, 2018 Findings: Worsening airspace disease in the right upper and right lower lobe with stable persistent scattered airspace opacities throughout the remaining lung burd[place]. No pneumothorax or significant effusion. Cardiac silhouette is moderately enlarged. Mediastinal contours are stable. Pulmonary vascularity is indistinct. Impression: Worsening appearance of the chest could be due to pneumonia and/or edema. 06/12/18 11:02 EKG interpretations - EKG EKG shows: atrial fibrillation - Blocks, axis, hypertrophy, ST abn Repolarization changes or abnormalities: nonspecific abnormality, ST segment, and/or T wave - AK, pacemaker, normal Myocardial infarction: lateral AK (old age or indeterminate) Assessment and Plan - Assessment and Plan (1) Severe aortic stenosis Current visit: Yes Status: Acute Not well visualized on 2 D echo, will need SIRISHA - Diurese with Lasix 40mg IV q8h - monitor renal and electrolytes -plan SIRISHA/ LHC for further evaluation when more stable (2) NSTEMI (non-ST elevated myocardial infarction) Current visit: Yes Status: Acute - Type II, secondary to fluid overload, pneumonia - Troponin trending down: 1) 0.106, 2) 0.372, 3) 0.220 - 06/11/181956 EKG: A Fib HR 83, lateral AK, indeterminate age, ST depression in V6 - Repeat EKG - Continue BB, Statin, anticoagulated on Warfarin (INR 4.50) (3) Pulmonary edema Current visit: Yes Status: Acute - Lasix 40mg IV Q8H - Potassium 20meq po TID with meals (4) Sepsis Current visit: Yes Status: Acute (5) Pneumonia Current visit: Yes Status: Acute (6) Paroxysmal A-fib Current visit: Yes Status: Chronic Rate well controlled - INR 4.5, chronic anticoagulation on warfarin (7) HTN (hypertension) Current visit: Yes Status: Chronic - Sub optimal control - Continue Amlodipine and Metoprolol - Resume home Lisinopril 10mg daily (8) Mixed hyperlipidemia Current visit: Yes Status: Chronic Continue Statin and Zetia - Assessment and Plan Severe aortic stenosis Current visit: Yes Status: Acute - Not well visualized on 2 D echo, will need SIRISHA - Diurese with Lasix 40mg IV q8h - monitor renal and electrolytes - plan SIRISHA/ LHC for further evaluation when more stable (probably Saturday) NSTEMI (non-ST elevated myocardial infarction) Current visit: Yes Status: Acute - Type II, secondary to fluid overload, pneumonia - Troponin trending down: 1) 0.106, 2) 0.372, 3) 0.220 - 06/11/181956 EKG: A Fib HR 83, lateral AK, indeterminate age, ST depression in V6 - Repeat EKG - Continue BB, Statin, anticoagulated on Warfarin (INR 4.50) Pulmonary edema Current visit: Yes Status: Acute - Lasix 40mg IV Q8H - Potassium 20meq po TID with meals - monitor renal and electrolytes Sepsis Current visit: Yes Status: Acute - Per hospitalist Pneumonia Current visit: Yes Status: Acute - per hospitalist Paroxysmal A-fib Current visit: Yes Status: Chronic - Rate well controlled, continue metoprolol - INR 4.5, chronic anticoagulation on warfarin HTN (hypertension) Current visit: Yes Status: Chronic - Sub optimal control - Continue Amlodipine and Metoprolol - Resume home Lisinopril 10mg daily Mixed hyperlipidemia Current visit: Yes Status: Chronic - Continue Statin and Zetia Thank you for allowing us to participate in the care of this patient, we will follow along with you. Hospital Course Summary Disclaimer: The visit summary below is not to be considered part of the above Progress Note. Hospital Course: Impression Sepsis 1. CAP 2. Leukocytosis, 3. Bandemia, 4. Tachycardia, 5. Tachypnea Community acquired pneumonia Hypoxia Requiring oxygen Hypokalemia- POA Elevated LFTs Tachycardia History of atrial fibrillation Anticoagulation on warfarin Hypertension presbyesophagus GERD Plan Admit to inpatient status under the care of Dr. Urbina for sepsis and pneumonia. Will continue on IV Rocephin and IV Azithromycin for pulmonary coverage. Sputum cultures pending. will repeat a venous lactate as the last one did trend up Continue on scheduled DuoNeb breathing treatments 4 times a day. Currently on 2 liters of oxygen by nasal cannula Added Robitussin to help with coughing. Consultation placed to speech therapy given question for dysphagia. Recent Vomiting, hx of Presbyesophagus Replace oral potassium and monitor Home antihypertensives remain on hold at time of admission given sepsis This patient on cardiac telemetry. Given irregular heartbeat and known history of atrial fibrillation SCDs to bilateral lower extremity for DVT prophylaxis. Check CMP tomorrow morning to follow elevated LFTs Consultation with PT and OT, Given patient's weakness secondary to acute illness Will discuss further orders and plan of care with attending, Dr. Urbina At time of discharge medical care will return to primary care provider, Dr Navarro
[2018-06-12] MEDS ORDERED: ALBUTEROL 2.5mg/0.5ml (0.5%) NEB AEROSOL PRN (11:20)
--- NOTE | 2018-06-12 12:10 | XRay Report ---
Indication: pneumonia/acute hypoxic respiratory failure PROCEDURE: XR chest 1V: Encounter: Initial Comparison: June 10, 2018 Findings: Stable diffuse bilateral airspace opacities. No gross pneumothorax or significant pleural effusion. Heart size and mediastinal contours are stable. Pulmonary vascularity is indistinct and somewhat obscured. Impression: Stable appearance of the chest with significant bilateral airspace disease. .
--- NOTE | 2018-06-12 14:34 | Echocardiogram ---
DATE OF PROCEDURE 06/12/2018 PROCEDURE PERFORMED Transthoracic echocardiography, M-mode assessment, full color spectral Doppler assessment. INDICATIONS Atrial fibrillation, dyspnea. FINDINGS 1. STUDY QUALITY: Technically limited due to poor acoustic window. 2. LEFT VENTRICLE: Left ventricle appears normal in size. There is moderate concentric left ventricular hypertrophy noted. Left ventricular systolic function appears to be hyperdynamic. Estimated LVEF 70%-75%. No regional wall motion abnormalities noted. The study is not technically adequate to assess accurate diastolic dysfunction. 3. RIGHT VENTRICLE: Right ventricle appears normal in size. Normal right ventricular wall thickness noted. Normal right ventricular systolic function noted. 4. RIGHT ATRIUM: Right atrium is moderately dilated. 5. LEFT ATRIUM: Left atrium appears to be moderately to severely dilated. 6. MITRAL VALVE: There is mild mitral annular calcification noted. Mild thickening of the leaflets noted. There is no significant mitral stenosis noted. Mild mitral regurgitation noted. 7. AORTIC VALVE: The aortic valve is heavily calcified. Reduced systolic excursion of the leaflet. Appears to be trileaflet. There is trivial aortic regurgitation noted. There is moderate aortic stenosis noted. Peak velocities across the aortic valve 3.5 m/sec with a mean pressure gradient of 15, mean gradient of 25 mmHg with estimated calculated valve area of 1.3 cm2. Due to limited window the severity of aortic stenosis could not be accurately assessed on today's study. 8. TRICUSPID VALVE: Tricuspid valve appears structurally normal. Mild-to- moderate tricuspid regurgitation noted. 9. PULMONIC VALVE: Not visualized on today's study. 10. INFERIOR VENA CAVA: IVC is dilated with normal respirophasic variation suggestive of mildly elevated right atrial pressure. 11. PULMONARY ARTERY: Significantly elevated pulmonary artery systolic pressure. Estimated pulmonary artery systolic pressure is 60-65 mmHg. CONCLUSION 1. Hyperdynamic left ventricular systolic function. Estimated LVEF 70%-75%. 2. Normal right ventricular systolic function. 3. Mild mitral regurgitation noted. 4. At least moderate aortic stenosis noted. Peak velocity across the aortic valve 3.5, peak gradient 15, mean gradient 25 mmHg with calculated valve area of 1.3 cm2. Due to limited windows aortic stenosis severity could be underestimated. 5. [id number] tricuspid regurgitation noted. 6. Significantly elevated pulmonary artery systolic pressure. Estimated pulmonary artery systolic pressure 60-65 mmHg. MTDD
--- NOTE | 2018-06-12 15:13 | Progress Note ---
- Date 06/12/18 Subjective: Mr. Kilgore was seen at approximately 11 this morning at which time he reported some dyspnea with activities as limited as sitting up or changing positions. Overall his breathing is better than it was yesterday and he is not coughing nearly as much as he did yesterday. Sputum is light beige when cough is productive. He denies chest pain or palpitations, has had no nausea or vomiting and was able to eat breakfast today. He reports having sweats last night but that after a fan was placed in the room he has felt much better. Nursing reports confusion overnight and that he pulled out several IV use; he was restless and tried to get up to urinate due to leaking around the Larios catheter early in the night but after Larios was replaced with a larger catheter leakage ceased and patient reports he was able to sleep well thereafter. Diuresis was initiated yesterday evening with good urine output and decreased O2 demand. Objective Vital signs: Temperature 98.0 F 06/12/18 12:00 Pulse Rate 93 06/12/18 13:30 Respiratory Rate 30 H 06/12/18 13:30 Blood Pressure 134/74 06/12/18 13:00 Pulse Oximetry 92 - 4L 06/12/18 13:30 I/O 4072/2787 NAD, alert, slightly confused but improved from yesterday evening Conjunctiva clear, sclera anicteric, oropharynx clear; left ptosis at rest but able to open her left eye completely with active movement Respirations nonlabored with crackles at the bases posteriorly, no wheezing; inspiratory "squeak" upper anterior burdick Irregular cardiac rhythm, S1-S2, soft systolic murmur appreciated today along the sternal border Abdomen soft, obese, nontender, diminished bowel sounds Extremities with trace edema Moving all extremities well Skin without rash Oriented to [facility], initially reported the year to be 1928 and corrected to 2027 finally correcting to 2017; able to tolerate it was June Rhythm: Atrial Fibrillation with Normal Ventricular Rate Height/Weight/BMI: Height 1.88 m Weight 103.8 kg Body Mass Index 30.9 Results - Labs CBC & Chem 7: 06/12/18 04:12 06/12/18 04:12 Labs: S88 B2 L6 M4 INR 4.5 ProBNP 6730; troponin 0.106-0.372-0.220 Bilirubin 1.5 with remainder of liver enzymes normal Microbiology Results: Microbiology 06/11/18 09:26 Sputum, Expectorated Gram Stain - many neutrophils, mixed rufino on Gram stain 06/11/18 09:26 Sputum, Expectorated Sputum Culture - Preliminary Early growth 06/11/18 18:03 Peripheral/Iv Start Blood Culture - Preliminary Culture Initiated - Results Pending 06/11/18 17:51 Peripheral/Iv Start Blood Culture - Preliminary Culture Initiated - Results Pending - ABG Interpretation ABG results: 06/11/18 19:46 ABG pH 7.390 ABG pCO2 36 ABG pO2 58.4 L ABG HCO3 21.6 L ABG Total CO2 22.7 L ABG O2 Saturation 89.8 L ABG Base Excess -2.8 L - Echocardiogram History of Echocardiogram: Echocardiogram obtained this mornin. Hyperdynamic left ventricular systolic function. Estimated LVEF 70%-75%. 2. Normal right ventricular systolic function. 3. Mild mitral regurgitation noted. 4. At least moderate aortic stenosis noted. Peak velocity across the aortic valve 3.5, peak gradient 15, mean gradient 25 mmHg with calculated valve area of 1.3 cm2. Due to limited windows aortic stenosis severity could be underestimated. 5. Otai-wu-pdzltafk tricuspid regurgitation noted. 6. Significantly elevated pulmonary artery systolic pressure. Estimated pulmonary artery systolic pressure 60-65 mmHg. - ECG Data Tracing #2 I reviewed this ECG and interpreted as documented below: (atrial fibrillation with rate 86, low voltage in the limb leads, right bundle branch block, no acute changes) - Imaging and Cardiology Chest x-ray Status: image reviewed by me (chest x-ray with increased bilateral infiltrates compared to yesterday morning the medical and probable pulmonary edema; cardiomegaly) Assessment and Plan (1) Severe sepsis Current visit: Yes Status: Acute (2) Pneumonia Current visit: Yes Status: Acute Assessment and Plan: Impression Sepsis-severe 1. CAP 2. Leukocytosis, 3. Bandemia, 4. Tachycardia, 5. Tachypnea, 6. Lactic acidosis Community acquired pneumonia Hypoxia Requiring oxygen Hypokalemia- POA Pulmonary edema Acute congestive heart failure-valvular Elevated troponin-probable type II OH Aortic stenosis-moderate severe Elevated LFTs Tachycardia Atrial fibrillation, chronic Anticoagulation on warfarin Hypertension presbyesophagus GERD Plan Converted from ceftriaxone to Zosyn yesterday evening for broader coverage and anaerobic coverage given known history of presbyesophagus and risk of aspiration. Azithromycin continued for atypical coverage. Respiratory viral panel negative, urine antigens pending as is sputum culture. Afebrile overnight, appears clinically improved this morning overall. Continue aggressive breathing treatments and Solu-Medrol for additional 24 hours after which will begin tapering. Discussed with RT-Acapella to be initiated. Volume overloaded with development of acute congestive heart failure and component of pulmonary edema following volume replacement yesterday; now known to have moderately severe aortic stenosis by echo this morning. Cardiology consulted. Continue diuresis initiated yesterday evening. Blood pressure improved from yesterday, no recurrent "spells". Ongoing potassium replacement. Resolution of abnormal liver enzymes. Warfarin on hold in light of elevated INR. Discussed with cardiology, nursing, and patient's daughter. DVT Prophylaxis: SCD's, Coumadin GI Prophylaxis: Omeprazole Resuscitation Status: Full Code - Physician Narrative Narrative: Date: 06/11/18 Time: 1520 I have independently evaluated and examined this patient. I reviewed the chart, the patient's history, and the SCENIC ARTIST/PA's documented findings as above. We discussed and formulated the assessment and plan as above with additions as below: Mr. Kilgore was seen late this morning and reported that he is "sick". He describes onset of cough 5-6 days ago which is worsened significantly in the past 1-2 days. In between onset of cough and recent deterioration he had a 2 to three-day episode of nausea, vomiting, and diarrhea which he attributed to food poisoning. He has had episodic "spells" when he abruptly feels hot, shaky, anxious, dyspneic, and weak with increasing frequency since he's been ill but reports that he's had similar episodes every couple of weeks over the past 6 months. Nursing reports that the patient is hypertensive and tachycardic in conjunction with these "spells". Patient is moderately anxious when seen and has some push of speech He is alert, provides history although has to be kept on track Left ptosis, oropharynx clear, neck supple Respirations nonlabored but airflow is diminished with coarse breath sounds in the left lower lobe posteriorly; no wheezing appreciated but patient coughing nonstop at time of my assessment. Irregular cardiac rhythm, S1-S2 Chest x-ray reviewed by myself revealing bilateral infiltrates, lingula and right lower lobe predominantly; mild increased vascular markings may also be present. Leukocytosis with left shift present last night but improved this morning, hypokalemic, increasing lactic acid-most recently 2.1. Minor elevation of AST/ ALT. Blood pressure/heart rate labile-tends to be hypertensive and heart rate up to 119 although noted that beta ovi missed earlier after transient hypotension x 1 last night. Severe sepsis due to pneumonia-blood cultures to be obtained, urine antigens will be obtained. Continue current antibiotics for community-acquired pneumonia pending additional data. Low-dose lorazepam added for anxiety; add prednisone for pulmonary inflammation. ER/overnight records reviewed. Hospital Course Summary Disclaimer: The visit summary below is not to be considered part of the above Progress Note. Hospital Course: Impression Sepsis, sepsis 1. CAP 2. Leukocytosis, 3. Bandemia, 4. Tachycardia, 5. Tachypnea Community acquired pneumonia Hypoxia Requiring oxygen Hypokalemia- POA Elevated LFTs Tachycardia History of atrial fibrillation Anticoagulation on warfarin Hypertension presbyesophagus GERD Plan Admit to inpatient status under the care of Dr. Urbina for sepsis and pneumonia. Will continue on IV Rocephin and IV Azithromycin for pulmonary coverage. Sputum cultures pending. will repeat a venous lactate as the last one did trend up Continue on scheduled DuoNeb breathing treatments 4 times a day. Currently on 2 liters of oxygen by nasal cannula Consultation placed to speech therapy given question for dysphagia. Recent Vomiting, hx of Presbyesophagus Replace oral potassium and monitor Home antihypertensives remain on hold at time of admission given sepsis This patient on cardiac telemetry. Given irregular heartbeat and known history of atrial fibrillation SCDs to bilateral lower extremity for DVT prophylaxis. Check CMP tomorrow morning to follow elevated LFTs Consultation with PT and OT, Given patient's weakness secondary to acute illness. Addendum: Progressive deterioration in respiratory status through the day prompted switching from ceftriaxone to Zosyn for broader coverage and anaerobic coverage. Later transferred to ICU and diuresis initiated due to concern that he was becoming volume overloaded. Echo ordered for a.m. 06/12/18 Converted from ceftriaxone to Zosyn yesterday evening for broader coverage and anaerobic coverage given known history of presbyesophagus and risk of aspiration. Azithromycin continued for atypical coverage. Respiratory viral panel negative, urine antigens pending as is sputum culture. Afebrile overnight, appears clinically improved this morning overall. Continue aggressive breathing treatments and Solu-Medrol for additional 24 hours after which will begin tapering. Discussed with RT-Acapella to be initiated. Volume overloaded with development of acute congestive heart failure and component of pulmonary edema following volume replacement yesterday; now known to have moderately severe aortic stenosis by echo this morning. Cardiology consulted. Continue diuresis initiated yesterday evening. Blood pressure improved from yesterday, no recurrent "spells". Ongoing potassium replacement. Resolution of abnormal liver enzymes.
--- NOTE | 2018-06-12 15:27 | XRay Report ---
Indication: picc placement PROCEDURE: XR chest post-procedure 1V: Encounter: Initial Comparison: June 12, 2018 Findings: New right PICC line in place with the tip projecting over the expected cavoatrial junction. Patient is rotated. No gross pneumothorax. Significant bilateral infiltrates are unchanged. Cardiac silhouette remains enlarged. Mediastinal contours are stable allowing for differences in rotation. Impression: New right PICC line tip projects over the expected cavoatrial junction. .
[2018-06-12] MEDS: WARFARIN 2.5 MG TABLET PO SCH (15:39)
[2018-06-12] MEDS: LISINOPRIL 10 MG TABLET PO SCH (15:40)
[2018-06-12] MEDS ORDERED: HALOPERIDOL 5 MG/ML INJECTION IVP PRN (17:24)
[2018-06-12] MEDS: FUROSEMIDE 40 MG/4 ML INJECTION IVP SCH (17:50)
[2018-06-12] MEDS: NS FLUSH BAG 500ml IV PRN (20:09)
[2018-06-12] MEDS: LATANOPROST 0.005% EYE DROPS 2.5ml EACH EYE SCH (21:44)
[2018-06-12] MEDS: SIMVASTATIN 40 MG TABLET PO SCH (21:44)
[2018-06-12] MEDS: EZETIMIBE 10 MG TABLET PO SCH (21:45)
[2018-06-12] MEDS: CITALOPRAM 20 MG TABLET PO SCH (21:45)
[2018-06-12] MEDS: AZITHROMYCIN IV 500 MG in NS 250ml 250 ML IV SCH (21:45)
[2018-06-13] MEDS: METHYLPREDNISOLONE SOD SUCC 125mg/2ml INJECTION IVP SCH ×3 (01:02→16:28)
[2018-06-13] MEDS: PIPERACILLIN/TAZOBACTAM 3.375 GM in NS 100 ML IV SCH ×4 (01:02→19:42)
[2018-06-13] MEDS: SALINE FLUSH 10ml SYRINGE IVF PRN ×3 (01:03→16:23)
[2018-06-13] MEDS: FUROSEMIDE 40 MG/4 ML INJECTION IVP SCH ×3 (01:03→16:22)
[2018-06-13] MEDS: OMEPRAZOLE 20 MG CAPSULE PO SCH (06:22)
[2018-06-13] MEDS: ALBUTEROL/IPRATROPIUM 2.5mg-0.5mg/3ml NEB AEROSOL SCH ×4 (06:47→19:27)
[2018-06-13] MEDS: AMLODIPINE 5 MG TABLET PO SCH (08:38)
[2018-06-13] MEDS: LISINOPRIL 10 MG TABLET PO SCH (08:38)
--- NOTE | 2018-06-13 10:28 | Pharmacy Consult ---
Pharmacy Consult-Warfarin - Laboratory Information 06/10/18 06/10/18 06/10/18 20:59 20:59 21:00 Hgb 14.1 Hct 41.8 INR 2.81 H AST 92 H ALT 66 H Albumin 4.0 06/11/18 06/12/18 06/12/18 01:36 04:12 04:12 Hgb 13.3 L 13.5 Hct 40.3 L 41.4 INR AST 57 ALT 50 Albumin 3.8 06/12/18 06/13/18 06/13/18 04:12 03:58 03:58 Hgb 13.3 L Hct 39.6 L INR 4.50 H* 5.33 H* AST ALT Albumin - Consult Information COUMADIN CONSULT (Recurring): 78 yr old male 6'2" 103.8 kg admitted for CAP sepsis. On warfarin at home for A- Fib. Home med dose of warfarin is 5 mg twice a week and 2.5 mg 5 x week. Patient is on Zosyn and Zithromax IV which can elevate the INR. INR has increased from 4.5 to 5.33. Will give a very small oral dose 0.5 mg of Vitamin K today to prevent the INR from further increase. Thank you. Alessandra Hensley, PharmD Thank you.
[2018-06-13] MEDS ORDERED: WARFARIN 5 MG TABLET PO SCH (12:00)
[2018-06-13] MEDS ORDERED: PHYTONADIONE 1 MG/0.5 ML ORAL LIQUID PO ONE (12:00)
--- NOTE | 2018-06-13 12:14 | Cardiology Progress Note ---
Subjective Principal diagnosis: dyspnea Interval history: Anthony is seen in follow up of , A Fib with RVR. He is sitting up in the recliner waiting for his lunch. States his breathing is improved but still has a frequent cough. He denies chest pain, palpitations, dizziness or nausea. Exam Vital signs: Temperature 97.7 F 06/13/18 08:08 Pulse Rate 112 H 06/13/18 11:00 Respiratory Rate 34 H 06/13/18 11:00 Blood Pressure 96/62 06/13/18 11:00 Pulse Oximetry 92 06/13/18 11:00 Inpatient Medications: Generic Name Dose Route Start Last Admin Trade Name Freq PRN Reason Stop Dose Admin Acetaminophen 650 mg 06/11/18 19:45 Tylenol PO QID PRN Discomfort Hydrocodone Bitart/Acetaminophen 1 tab 06/10/18 22:27 [place] 5/325 PO Q6H PRN Pain Albuterol Sulfate 5 mg 06/12/18 11:20 Proventil Neb (0.5%) AEROSOL Q2H PRN Albuterol/Ipratropium 3 ml 06/10/18 23:36 Duoneb AEROSOL Q4H PRN Albuterol/Ipratropium 3 ml 06/11/18 11:00 06/13/18 10:37 Duoneb AEROSOL 3 ml RTQID JOSE A Administration Amlodipine Besylate 5 mg 06/11/18 09:00 06/13/18 08:38 Norvasc PO 5 mg DAILY JOSE A Administration Cholecalciferol 1,000 unit 06/11/18 09:00 06/13/18 08:38 Vit. D-3 PO 1,000 unit DAILY JOSE A Administration Citalopram Hydrobromide 20 mg 06/11/18 21:00 06/12/18 21:45 Celexa PO 20 mg HS JOSE A Administration Ezetimibe 10 mg 06/11/18 21:00 06/12/18 21:45 Zetia PO 10 mg HS JOSE A Administration Furosemide 40 mg 06/12/18 17:00 06/13/18 08:35 Lasix 40 Mg/4 Ml IVP 40 mg Q8HR JOSE A Administration Guaifenesin 400 mg 06/11/18 10:52 06/11/18 12:03 Robitussin Liq PO 400 mg Q6H PRN Administration Cough /Congestion Sodium Chloride 1,000 mls @ 100 mls/hr 06/10/18 22:27 06/11/18 21:03 Normal Saline IV Infused .Q10H JOSE A Infusion Azithromycin 500 mg/ Sodium 250 mls @ 167 mls/hr 06/11/18 22:00 06/13/18 00: 00 Chloride IV 06/13/18 21:59 Infused Q24H JOSE A Infusion Piperacillin Sod/Tazobactam 100 mls @ 200 mls/hr 06/11/18 19:45 06/13/18 09: 00 Sod 3.375 gm/ Sodium Chloride IV Infused Q6H JOSE A Infusion Latanoprost 1 drops 06/11/18 21:00 06/12/18 21:44 Xalatan EACH EYE 1 drops HS JOSE A Administration Lisinopril 10 mg 06/12/18 13:30 06/13/18 08:38 Prinivil PO 10 mg DAILY JOSE A Administration Lorazepam 1 mg 06/12/18 18:05 Ativan Inj IVP Q4H PRN Methylprednisolone Sodium Succinate 125 mg 06/11/18 17:00 06/13/18 08:36 Solu-Medrol IVP 125 mg Q8HR JOSE A Administration Metoprolol Tartrate 50 mg 06/11/18 11:49 06/13/18 08:38 Lopressor PO 50 mg BIDWM JOSE A Administration Metoprolol Tartrate 5 mg 06/11/18 23:09 06/12/18 04:28 Lopressor IVP 5 mg Q6H PRN Administration Omeprazole 20 mg 06/11/18 06:30 06/13/18 06:22 Prilosec PO 20 mg ACB JOSE A Administration Ondansetron HCl 4 mg 06/10/18 22:27 Zofran IVP Q6H PRN Nausea &/or vomiting Potassium Chloride 20 meq 06/12/18 12:00 06/13/18 08:38 K-Dur 20 Meq Tablet PO 20 meq TIDWM JOSE A Administration Senna/Docusate Sodium 1 tab 06/10/18 22:27 Senna Plus Tablet PO BID PRN Constipation Simvastatin 40 mg 06/11/18 21:00 06/12/18 21:44 Zocor PO 40 mg HS JOSE A Administration Sodium Chloride 10 - 80 ml 06/10/18 20:50 06/13/18 08:41 Iv Flush IVF 30 ml PRN PRN Administration Flushing Sodium Chloride 500 ml 06/12/18 20:08 06/12/18 20:09 Normal Saline IV 500 ml PRN PRN Administration Warfarin Sodium 0 06/11/18 12:00 Coumadin Protocol NOTE JOSE A Discontinued Medications Generic Name Dose Route Start Last Admin Trade Name Freq PRN Reason Stop Dose Admin Acetaminophen 325 - 650 mg 06/10/18 22:27 Tylenol [place] Q5H PRN Pain Hydrocodone Bitart/Acetaminophen 1 tab 06/10/18 21:56 06/10/18 21:58 [place] 5/325 PO 06/10/18 21:57 1 tab O ONE Administration Albuterol Sulfate 2.5 mg 06/10/18 20:52 06/10/18 20:58 Proventil Neb (0.083%) AEROSOL 06/10/18 20:53 2.5 mg O ONE Administration Albuterol Sulfate 5 mg 06/10/18 23:52 Proventil Neb (0.5%) AEROSOL RTQID PRN Albuterol/Ipratropium 3 ml 06/11/18 07:00 06/11/18 08:57 Duoneb AEROSOL 3 ml RTBID JOSE A Administration Azithromycin 500 mg 06/10/18 21:47 06/10/18 21:55 Zithromax PO 06/10/18 21:48 Not Given O ONE Enoxaparin Sodium 40 mg 06/11/18 09:00 06/11/18 09:07 Lovenox SQ 40 mg DAILY JOSE A Administration Furosemide 40 mg 06/11/18 21:19 06/11/18 21:22 Lasix 40 Mg/4 Ml IVP 06/11/18 21:20 40 mg O ONE Administration Furosemide 40 mg 06/12/18 08:31 06/12/18 10:10 Lasix 40 Mg/4 Ml IVP 06/12/18 08:32 40 mg ONE TIME ONE Administration Haloperidol Lactate 1 mg 06/12/18 17:24 06/12/18 17:15 Haldol IVP 06/13/18 00:00 1 mg Q4H PRN Administration Sodium Chloride 1,000 mls @ 999.9 mls/hr 06/10/18 20:51 06/10/18 21:55 Normal Saline IV 06/10/18 21:50 Infused .Q1H ONE Infusion Azithromycin 500 mg/ Sodium 250 mls @ 167 mls/hr 06/10/18 21:49 06/10/18 21: 55 Chloride IV 06/10/18 23:18 167 mls/hr O ONE Administration Ceftriaxone Sodium 1 g/ Sodium 100 mls @ 200 mls/hr 06/11/18 22:00 Chloride IV Q24H JOSE A Sodium Chloride 1,000 mls @ 250 mls/hr 06/11/18 14:00 06/11/18 19:34 Normal Saline IV Not Given .Q4H JOSE A Lisinopril 10 mg 06/11/18 09:00 Prinivil PO DAILY JOSE A Lorazepam 0.5 mg 06/11/18 14:04 06/12/18 17:03 Ativan Inj IVP 0.5 mg Q4H PRN Administration Metoprolol Tartrate 50 mg 06/11/18 09:00 Lopressor PO BID [facility] Non-Formulary Medication 1,000 unit 06/11/18 21:00 Cholecalciferol (Vitamin D3) [Vitamin D3] PO [facility] Pharmacy Consult 1 each 06/10/18 23:12 06/11/18 12:00 Pharmacy Consult - Fall Risk 06/10/18 23:13 1 each ONE TIME ONE Administration Pharmacy Consult each 06/12/18 00:46 Pharmacy Consult - Fall Risk 06/12/18 00:47 ONE TIME ONE Phytonadione 0.5 mg 06/13/18 12:00 Vitamin K Oral Liq PO 06/13/18 12:01 O ONE Potassium Chloride 40 meq 06/11/18 11:55 06/11/18 12:03 K-Dur 20 Meq Tablet PO 06/11/18 11:56 40 meq O ONE Administration Potassium Chloride 40 meq 06/12/18 11:21 06/12/18 15:39 K-Dur 20 Meq Tablet PO 06/12/18 11:22 40 meq ONCE ONE Administration Potassium Chloride 40 meq 06/13/18 10:29 06/13/18 11:20 K-Dur 20 Meq Tablet PO 06/13/18 10:30 40 meq O ONE Administration Prednisone 40 mg 06/11/18 15:39 Deltasone 20 Mg PO 06/11/18 15:40 O ONE Prednisone 40 mg 06/12/18 08:00 Deltasone 20 Mg PO 06/16/18 07:59 WB [facility] Warfarin Sodium 2.5 mg 06/11/18 12:30 06/12/18 15:39 Coumadin PO 2.5 mg [email or web address] [facility] Administration Warfarin Sodium 5 mg 06/13/18 12:00 Coumadin PO [email or web address] [facility] Warfarin Sodium 1 each 06/11/18 11:45 06/11/18 12:04 Pharmacy Consult - Warfarin 06/11/18 11:46 1 each O ONE Administration - Constitutional no acute distress, well nourished, cooperative - Routine HEENT Exam Head: Present: normocephalic ENT: Present: mucous membranes moist - Routine Neck Exam Absent: JVD, carotid bruit - Routine Chest/Breast/Axilla Exam Chest wall: Absent: tenderness - Routine Respiratory Exam Present: dyspnea, CTA bilaterally, diminished air movement - Routine Cardiovascular Exam Present: no murmur, tachycardia, irregularly irregular - Routine Abdominal Exam Present: soft, non tender - Routine Extremities Exam Present: no edema - Routine Skin Exam Present: intact, dry, warm - Routine Neurological Exam Present: alert - Routine Psychiatric Exam Present: normal affect - Urinary Catheter Management Urethral Cath placed during this visit: yes, but has since been removed by the nurse Insertion date: 06/11/18 Insertion time: 17:25 Removal date: 06/12/18 Removal time: 02:10 Coude Cath placed during this visit: yes Insertion date: 06/12/18 Insertion time: 02:15 Results 06/13/18 03:58 06/13/18 03:58 CBC 06/13/18 Range/Units 03:58 WBC 21.0 H D (4.5-11.0) T/MM3 RBC 4.23 L (4.50-5.90) M/MM3 Hgb 13.3 L (13.5-17.5) GM/DL Hct 39.6 L (41-53) % Plt Count 174 (130-400) T/MM3 Neut # (Auto) Not performed Lymph # (Auto) Not performed [place] # (Auto) Not performed Eos # (Auto) Not performed Baso # (Auto) Not performed Comprehensive Metabolic Panel 06/13/18 Range/Units 03:58 Sodium 144 (136-146) MEQ/L Potassium 3.3 L (3.6-5) MEQ/L Chloride 105 (98-107) MEQ/L Carbon Dioxide 30 (22-30) MEQ/L BUN 26.0 H D (9-20) MG/DL Creatinine 0.9 (0.8-1.5) mg/dL Glucose 158 H (75-110) MG/DL Calcium 8.5 (8.4-10.2) MG/DL Intake and Output 06/12/18 06/13/18 06/13/18 22:59 06:59 14:59 Intake Total 200 / 200 550 / 550 650.000 / 650.000 Output Total 770 / 770 1580 / 1580 239 / 239 Balance -570 / -570 -1030 / -1030 411.000 / 411.000 Intake: IV 200 / 200 350 / 350 100.000 / 100.000 Azithromycin IV 500 mg In NS 250 / 250 250ml 250 ml @ 167 mls/hr IV Q24H [facility] Rx#:[id number] Piperacillin/Tazobactam 3.375 200 / 200 100 / 100 100.000 / 100.000 gm In Ns 100 ml @ 200 mls/hr IV Q6H JOSE A Rx#:[id number] Oral 200 / 200 550 / 550 Output: Urine 26 / 26 Urine Amount (Catheter) 770 / 770 1580 / 1580 213 / 213 Other: Urine Appearance Clear Sediment Cloudy Sediment Urine Color Yellow Pale Yellow Yellow Stool Color Brown Brown Green Stool Consistency Soft Soft Size of Bowel Movement Small Smear Smear # Incontinent Bowel Movements 1 Weight 228 lb 13.437 oz Patient Weight 06/14/18 06:59 Weight 228 lb 13.437 oz - Imaging and Cardiology Imaging & Cardiology Narrative: Date of Exam: 06/12/18 Type of Exam(s): US echo doppler complete DATE OF PROCEDURE 06/12/2018 PROCEDURE PERFORMED Transthoracic echocardiography, M-mode assessment, full color spectral Doppler assessment. INDICATIONS Atrial fibrillation, dyspnea. FINDINGS 1. STUDY QUALITY: Technically limited due to poor acoustic window. 2. LEFT VENTRICLE: Left ventricle appears normal in size. There is moderate concentric left ventricular hypertrophy noted. Left ventricular systolic function appears to be hyperdynamic. Estimated LVEF 70%-75%. No regional wall motion abnormalities noted. The study is not technically adequate to assess accurate diastolic dysfunction. 3. RIGHT VENTRICLE: Right ventricle appears normal in size. Normal right ventricular wall thickness noted. Normal right ventricular systolic function noted. 4. RIGHT ATRIUM: Right atrium is moderately dilated. 5. LEFT ATRIUM: Left atrium appears to be moderately to severely dilated. 6. MITRAL VALVE: There is mild mitral annular calcification noted. Mild thickening of the leaflets noted. There is no significant mitral stenosis noted. Mild mitral regurgitation noted. 7. AORTIC VALVE: The aortic valve is heavily calcified. Reduced systolic excursion of the leaflet. Appears to be trileaflet. There is trivial aortic regurgitation noted. There is moderate aortic stenosis noted. Peak velocities across the aortic valve 3.5 m/sec with a mean pressure gradient of 15, mean gradient of 25 mmHg with estimated calculated valve area of 1.3 cm2. Due to limited window the severity of aortic stenosis could not be accurately assessed on today's study. 8. TRICUSPID VALVE: Tricuspid valve appears structurally normal. Mild-to- moderate tricuspid regurgitation noted. 9. PULMONIC VALVE: Not visualized on today's study. 10. INFERIOR VENA CAVA: IVC is dilated with normal respirophasic variation suggestive of mildly elevated right atrial pressure. 11. PULMONARY ARTERY: Significantly elevated pulmonary artery systolic pressure. Estimated pulmonary artery systolic pressure is 60-65 mmHg. CONCLUSION 1. Hyperdynamic left ventricular systolic function. Estimated LVEF 70%-75%. 2. Normal right ventricular systolic function. 3. Mild mitral regurgitation noted. 4. At least moderate aortic stenosis noted. Peak velocity across the aortic valve 3.5, peak gradient 15, mean gradient 25 mmHg with calculated valve area of 1.3 cm2. Due to limited windows aortic stenosis severity could be underestimated. 5. [id number] tricuspid regurgitation noted. 6. Significantly elevated pulmonary artery systolic pressure. Estimated pulmonary artery systolic pressure 60-65 mmHg. 06/13/18 12:24 06/13/18 12:24 Date of Exam: 06/12/18 Ordering Provider: Izzy Urbina MD Type of Exam(s): XR chest 1V Reason for Exam(s): pneumonia, acute hypoxic resp failure Indication: pneumonia, acute hypoxic resp failure PROCEDURE: XR chest 1V: Encounter: Initial Comparison: June 11, 2018 Findings: Worsening airspace disease in the right upper and right lower lobe with stable persistent scattered airspace opacities throughout the remaining lung [place]. No pneumothorax or significant effusion. Cardiac silhouette is moderately enlarged. Mediastinal contours are stable. Pulmonary vascularity is indistinct. Impression: Worsening appearance of the chest could be due to pneumonia and/or edema. Assessment and Plan - Assessment and Plan (1) Severe aortic stenosis Current visit: Yes Status: Acute (2) NSTEMI (non-ST elevated myocardial infarction) Current visit: Yes Status: Acute (3) Pulmonary edema Current visit: Yes Status: Acute (4) Sepsis Current visit: Yes Status: Acute (5) Pneumonia Current visit: Yes Status: Acute (6) Paroxysmal A-fib Current visit: Yes Status: Chronic (7) HTN (hypertension) Current visit: Yes Status: Chronic (8) Mixed hyperlipidemia Current visit: Yes Status: Chronic - Assessment and Plan 06/12/18 Severe aortic stenosis Current visit: Yes Status: Acute - Not well visualized on 2 D echo, will need SIRISHA - Diurese with Lasix 40mg IV q8h - monitor renal and electrolytes - plan SIRISHA/ [facility] for further evaluation when more stable (probably Saturday) NSTEMI (non-ST elevated myocardial infarction) Current visit: Yes Status: Acute - Type II, secondary to fluid overload, pneumonia - Troponin trending down: 1) 0.106, 2) 0.372, 3) 0.220 - 06/11/181956 EKG: A Fib HR 83, lateral SC, indeterminate age, ST depression in V6 - Repeat EKG - Continue BB, Statin, anticoagulated on Warfarin (INR 4.50) Pulmonary edema Current visit: Yes Status: Acute - Lasix 40mg IV Q8H - Potassium 20meq po TID with meals - monitor renal and electrolytes Sepsis Current visit: Yes Status: Acute - Per hospitalist Pneumonia Current visit: Yes Status: Acute - per hospitalist Paroxysmal A-fib Current visit: Yes Status: Chronic - Rate well controlled, continue metoprolol - INR 4.5, chronic anticoagulation on warfarin HTN (hypertension) Current visit: Yes Status: Chronic - Sub optimal control - Continue Amlodipine and Metoprolol - Resume home Lisinopril 10mg daily Mixed hyperlipidemia Current visit: Yes Status: Chronic - Continue Statin and Zetia Thank you for allowing us to participate in the care of this patient, we will follow along with you. 06/13/18 AFIB - poor rate control with activity. - Increase metoprolol to 75mg BID, give additional 25mg now - Continue Diuresis as BP tolerates Hospital Course Summary Disclaimer: The visit summary below is not to be considered part of the above Progress Note. Hospital Course: Impression Sepsis, sepsis 1. CAP 2. Leukocytosis, 3. Bandemia, 4. Tachycardia, 5. Tachypnea Community acquired pneumonia Hypoxia Requiring oxygen Hypokalemia- POA Elevated LFTs Tachycardia History of atrial fibrillation Anticoagulation on warfarin Hypertension presbyesophagus GERD Plan Admit to inpatient status under the care of Dr. Urbina for sepsis and pneumonia. Will continue on IV Rocephin and IV Azithromycin for pulmonary coverage. Sputum cultures pending. will repeat a venous lactate as the last one did trend up Continue on scheduled DuoNeb breathing treatments 4 times a day. Currently on 2 liters of oxygen by nasal cannula Consultation placed to speech therapy given question for dysphagia. Recent Vomiting, hx of Presbyesophagus Replace oral potassium and monitor Home antihypertensives remain on hold at time of admission given sepsis This patient on cardiac telemetry. Given irregular heartbeat and known history of atrial fibrillation SCDs to bilateral lower extremity for DVT prophylaxis. Check CMP tomorrow morning to follow elevated LFTs Consultation with PT and OT, Given patient's weakness secondary to acute illness. Addendum: Progressive deterioration in respiratory status through the day prompted switching from ceftriaxone to Zosyn for broader coverage and anaerobic coverage. Later transferred to ICU and diuresis initiated due to concern that he was becoming volume overloaded. Echo ordered for a.m. 06/12/18 Converted from ceftriaxone to Zosyn yesterday evening for broader coverage and anaerobic coverage given known history of presbyesophagus and risk of aspiration. Azithromycin continued for atypical coverage. Respiratory viral panel negative, urine antigens pending as is sputum culture. Afebrile overnight, appears clinically improved this morning overall. Continue aggressive breathing treatments and Solu-Medrol for additional 24 hours after which will begin tapering. Discussed with RT-[place] to be initiated. Volume overloaded with development of acute congestive heart failure and component of pulmonary edema following volume replacement yesterday; now known to have moderately severe aortic stenosis by echo this morning. Cardiology consulted. Continue diuresis initiated yesterday evening. Blood pressure improved from yesterday, no recurrent "spells". Ongoing potassium replacement. Resolution of abnormal liver enzymes.
--- NOTE | 2018-06-13 14:07 | Progress Note ---
- Date 06/13/18 Subjective: Mr. Kilgore was up in a chair most of the morning and reported having a good appetite. He didn't sleep well indicating that nursing interrupted his sleep on multiple occasions but otherwise he would've slept better. He denied dyspnea or exertional dyspnea this morning and was able to walk in the halls with physical therapy without becoming short of breath or lightheaded. He continues to require 4 L supplemental oxygen. He reports decreasing cough and no sputum production. Denied palpitations, nausea, diarrhea, or fever. Objective Vital signs: Temperature 97.7 F 06/13/18 08:08 Pulse Rate 100 06/13/18 12:00 Respiratory Rate 34 H 06/13/18 11:00 Blood Pressure 96/62 06/13/18 11:00 Pulse Oximetry 92-4 L 06/13/18 11:00 I/O 850/3605 Weight 2.4 kg below admission weight NAD, alert, talkative Conjunctiva clear, persistent left ptosis, oropharynx clear Respirations nonlabored, good airflow, faint inspiratory/expiratory crackles over the lower 2/3 posterior lung burdick Irregular rhythm, S1-S2 Abdomen soft, nontender, obese, bowel sounds present Trace-+1 edema bilateral lower extremities Moving all extremities well Oriented to [facility], 2018 Rhythm: Atrial Fibrillation with Normal Ventricular Rate Height/Weight/BMI: Height 1.88 m Weight 103.8 kg Body Mass Index 29.3 Results - Labs CBC & Chem 7: 06/13/18 03:58 06/13/18 03:58 Labs: S83 B4 L12 M1 INR 5.33 ProBNP 3180 Microbiology Results: Microbiology 06/11/18 17:27 Urine Legionella Urinary Antigen -negative 06/11/18 17:27 Urine Streptococcus pneumoniae Antigen -negative 06/11/18 17:51 Peripheral/Iv Start Blood Culture - Preliminary No Growth After 1 Day 06/11/18 18:03 Peripheral/Iv Start Blood Culture - Preliminary No Growth After 1 Day 06/11/18 09:26 Sputum, Expectorated Gram Stain - Final 06/11/18 09:26 Sputum, Expectorated Sputum Culture - Preliminary Early growth - ABG Interpretation ABG results: 06/11/18 19:46 ABG pH 7.390 ABG pCO2 36 ABG pO2 58.4 L ABG HCO3 21.6 L ABG Total CO2 22.7 L ABG O2 Saturation 89.8 L ABG Base Excess -2.8 L Assessment and Plan (1) Severe sepsis Current visit: Yes Status: Acute (2) Pneumonia Current visit: Yes Status: Acute Assessment and Plan: Impression Sepsis-severe 1. CAP 2. Leukocytosis, 3. Bandemia, 4. Tachycardia, 5. Tachypnea, 6. Lactic acidosis Community acquired pneumonia Hypoxia Requiring oxygen Hypokalemia- POA Pulmonary edema Acute congestive heart failure-valvular Elevated troponin-probable type II PA Aortic stenosis-moderate severe Elevated LFTs Tachycardia Atrial fibrillation, chronic Anticoagulation on warfarin Hypertension presbyesophagus GERD Plan Patient reports clinical improvement, afebrile, decreasing cough and improved exertional tolerance. Continue Zosyn; complete 3 days azithromycin today. Sputum culture/blood cultures pending. Chest x-ray in a.m. White count climbing but no sign of worsening infection; likely due to steroids. Begin titrating steroid dose; continue breathing treatments and Acapella with treatments. Diuresed well yesterday, now has net negative fluid balance compared to admission. Stable cardiac rhythm, persistent low-grade tachycardia, metoprolol dose increased by cardiology for improved rate control. INR remains elevated, low-dose vitamin K given to prevent further climb and anticipate stabilization as oral intake improves and following discontinuation of azithromycin. Mental status clearing, appears to in the evening-continue to monitor. Requires ongoing potassium supplementation-recheck potassium later today to determine if additional potassium needed. Discussed with nursing and cardiology. DVT Prophylaxis: SCD's, Coumadin GI Prophylaxis: Omeprazole Resuscitation Status: Full Code Hospital Course Summary Disclaimer: The visit summary below is not to be considered part of the above Progress Note. Hospital Course: Impression Sepsis, sepsis 1. CAP 2. Leukocytosis, 3. Bandemia, 4. Tachycardia, 5. Tachypnea Community acquired pneumonia Hypoxia Requiring oxygen Hypokalemia- POA Elevated LFTs Tachycardia History of atrial fibrillation Anticoagulation on warfarin Hypertension presbyesophagus GERD Plan Admit to inpatient status under the care of Dr. Urbina for sepsis and pneumonia. Will continue on IV Rocephin and IV Azithromycin for pulmonary coverage. Sputum cultures pending. will repeat a venous lactate as the last one did trend up Continue on scheduled DuoNeb breathing treatments 4 times a day. Currently on 2 liters of oxygen by nasal cannula Consultation placed to speech therapy given question for dysphagia. Recent Vomiting, hx of Presbyesophagus Replace oral potassium and monitor Home antihypertensives remain on hold at time of admission given sepsis This patient on cardiac telemetry. Given irregular heartbeat and known history of atrial fibrillation SCDs to bilateral lower extremity for DVT prophylaxis. Check CMP tomorrow morning to follow elevated LFTs Consultation with PT and OT, Given patient's weakness secondary to acute illness. Addendum: Progressive deterioration in respiratory status through the day prompted switching from ceftriaxone to Zosyn for broader coverage and anaerobic coverage. Later transferred to ICU and diuresis initiated due to concern that he was becoming volume overloaded. Echo ordered for a.m. 06/12/18 Converted from ceftriaxone to Zosyn yesterday evening for broader coverage and anaerobic coverage given known history of presbyesophagus and risk of aspiration. Azithromycin continued for atypical coverage. Respiratory viral panel negative, urine antigens pending as is sputum culture. Afebrile overnight, appears clinically improved this morning overall. Continue aggressive breathing treatments and Solu-Medrol for additional 24 hours after which will begin tapering. Discussed with RT-Acapella to be initiated. Volume overloaded with development of acute congestive heart failure and component of pulmonary edema following volume replacement yesterday; now known to have moderately severe aortic stenosis by echo this morning. Cardiology consulted. Continue diuresis initiated yesterday evening. Blood pressure improved from yesterday, no recurrent "spells". Ongoing potassium replacement. Resolution of abnormal liver enzymes. 06/13/18 Patient reports clinical improvement, afebrile, decreasing cough and improved exertional tolerance. Continue Zosyn; complete 3 days azithromycin today. Sputum culture/blood cultures pending. Chest x-ray in a.m. White count climbing but no sign of worsening infection; likely due to steroids. Begin titrating steroid dose; continue breathing treatments and Acapella with treatments. Diuresed well yesterday, now has net negative fluid balance compared to admission. Stable cardiac rhythm, persistent low-grade tachycardia, metoprolol dose increased by cardiology for improved rate control. INR remains elevated, low-dose vitamin K given to prevent further climb and anticipate stabilization as oral intake improves and following discontinuation of azithromycin. Mental status clearing, appears to in the evening-continue to monitor. Requires ongoing potassium supplementation-recheck potassium later today to determine if additional potassium needed.
[2018-06-13] MEDS: METOPROLOL 5mg/5ml INJECTION IVP PRN (16:05)
[2018-06-13] MEDS: SIMVASTATIN 40 MG TABLET PO SCH (20:05)
[2018-06-13] MEDS: CITALOPRAM 20 MG TABLET PO SCH (20:05)
[2018-06-13] MEDS: EZETIMIBE 10 MG TABLET PO SCH (20:05)
[2018-06-13] MEDS: LATANOPROST 0.005% EYE DROPS 2.5ml EACH EYE SCH (20:05)
[2018-06-14] MEDS: FUROSEMIDE 40 MG/4 ML INJECTION IVP SCH ×2 (01:25→20:58)
[2018-06-14] MEDS: METHYLPREDNISOLONE SOD SUCC 125mg/2ml INJECTION IVP SCH ×3 (01:25→17:44)
[2018-06-14] MEDS: PIPERACILLIN/TAZOBACTAM 3.375 GM in NS 100 ML IV SCH ×3 (01:26→13:30)
[2018-06-14] MEDS: GUAIFENESIN 200mg/10ml ORAL LIQUID PO PRN ×2 (02:54→20:26)
[2018-06-14] MEDS: OMEPRAZOLE 20 MG CAPSULE PO SCH ×2 (04:54→05:30)
[2018-06-14] MEDS: ALBUTEROL/IPRATROPIUM 2.5mg-0.5mg/3ml NEB AEROSOL SCH ×4 (07:00→19:01)
--- NOTE | 2018-06-14 08:44 | Pharmacy Consult ---
Pharmacy Consult-Warfarin - Laboratory Information 06/10/18 06/10/18 06/10/18 20:59 20:59 21:00 Hgb 14.1 Hct 41.8 INR 2.81 H AST 92 H ALT 66 H Albumin 4.0 06/11/18 06/12/18 06/12/18 01:36 04:12 04:12 Hgb 13.3 L 13.5 Hct 40.3 L 41.4 INR AST 57 ALT 50 Albumin 3.8 06/12/18 06/13/18 06/13/18 04:12 03:58 03:58 Hgb 13.3 L Hct 39.6 L INR 4.50 H* 5.33 H* AST ALT Albumin 06/14/18 06/14/18 06/14/18 05:00 05:00 05:00 Hgb 13.3 L Hct 40.2 L INR 4.37 H AST ALT Albumin 3.4 L - Consult Information COUMADIN CONSULT (Recurring): 78 yr old male 6'2" 103.8 kg admitted for pneumonia. On warfarin at home for A- Fib. Home med dose of warfarin is 5 mg twice a week and 2.5 mg 5 x week. Patient is on Zosyn and Zithromax IV which can elevate the INR. INR has increased from 4.5 to 5.33. The 0.5 mg dose of Vitamin K given yesterday brought the INR down to 4.37. Will hold the Warfarin today to let it drift back down into therapeutic range. Thank you. Alessandra Hensley, PharmD
[2018-06-14] MEDS: AMLODIPINE 5 MG TABLET PO SCH (09:13)
[2018-06-14] MEDS: LISINOPRIL 10 MG TABLET PO SCH (09:13)
--- NOTE | 2018-06-14 13:40 | Progress Note ---
- Date 06/14/18 Subjective: Mr. Kilgore was seen midmorning with his daughter at bedside. Reports that he feels better and went on to describe feeling less dyspneic and having looser cough now productive of thick sputum which is occasionally blood tinged. He denies chest pain or palpitations, has had no nausea or vomiting and had a bowel movement yesterday. He denies lightheadedness when he is up in hopes to ambulate again today. Nursing reports no fever but heart rates accelerating to 120-140 with minimal activity. Objective Vital signs: Temperature 97.8 F 06/14/18 12:00 Pulse Rate 92 06/14/18 12:15 Respiratory Rate 28 H 06/14/18 12:15 Blood Pressure 126/61 06/14/18 12:00 Pulse Oximetry 98 - 4L 06/14/18 12:15 NAD, alert Conjunctiva clear, sclera anicteric, oropharynx clear; tense to the left eye closed Respirations nonlabored, good airflow, fine crackles 1/2-2/3 up exterior lung burdick; no wheezing present Irregularly irregular rhythm, S1-S2, no murmur appreciated Abdomen soft, nontender, bowel sounds present Trace lower extremity edema Moving all extremities well, skin without rash Rhythm: Atrial Fibrillation with Normal Ventricular Rate, Atrial Fibrillation with RVR Height/Weight/BMI: Height 1.88 m Weight 108.6 kg Body Mass Index 29.3 Results - Labs CBC & Chem 7: 06/14/18 05:00 06/14/18 05:00 Labs: S91 L8 M1 INR 4.37 Microbiology Results: Microbiology 06/11/18 09:26 Sputum, Expectorated Gram Stain - Final 06/11/18 09:26 Sputum, Expectorated Sputum Culture - Final Haemophilus influenzae Normal Respiratory Malini 06/11/18 17:51 Peripheral/Iv Start Blood Culture - Preliminary No Growth After 2 Days 06/11/18 18:03 Peripheral/Iv Start Blood Culture - Preliminary No Growth After 2 Days 06/11/18 17:27 Urine Legionella Urinary Antigen -negative 06/11/18 17:27 Urine Streptococcus pneumoniae Antigen - negative - Imaging and Cardiology Chest x-ray Status: image reviewed by me (residual right greater than left infiltrates, clearing of pulmonary edema, calcifications present in the aorta) Assessment and Plan (1) Severe sepsis Current visit: Yes Status: Acute (2) Pneumonia Current visit: Yes Status: Acute Assessment and Plan: Impression Sepsis-severe 1. CAP 2. Leukocytosis, 3. Bandemia, 4. Tachycardia, 5. Tachypnea, 6. Lactic acidosis Community acquired pneumonia-Haemophilus influenza Hypoxia Requiring oxygen Hypokalemia- POA Pulmonary edema Acute congestive heart failure-valvular Elevated troponin-probable type II CO Aortic stenosis-moderate severe Elevated LFTs Tachycardia Atrial fibrillation, chronic Anticoagulation on warfarin Hypertension presbyesophagus GERD Plan Continued clinical improvement, partial clearing on chest x-ray. With identification of Haemophilus influenza will resume ceftriaxone and discontinue Zosyn. Continue to monitor leukocytosis with change in antibiotics and as steroids tapered. If doing well tomorrow will convert prednisone. Heart rate improving although tachycardic with minimal activity. Metoprolol increased yesterday BUN/creatinine up slightly today-Lasix decreased to daily. Potassium is stabilized, decrease potassium supplement in conjunction with decreased diuresis. Valvular heart disease present-aortic stenosis not adequately visualized on transthoracic study -anticipate SIRISHA in the near future with left heart catheter. Mental status significantly improved from first 2 days in the hospital. INR down slightly today but remains super-therapeutic, warfarin remains on hold. Discussed with nursing and patient's daughter/DPOA. DVT Prophylaxis: SCD's, Coumadin GI Prophylaxis: Omeprazole Resuscitation Status: Full Code - Physician Narrative Narrative: Date: 06/14/18 Time: 1337 Hospital Course Summary Disclaimer: The visit summary below is not to be considered part of the above Progress Note. Hospital Course: Impression Sepsis, sepsis 1. CAP 2. Leukocytosis, 3. Bandemia, 4. Tachycardia, 5. Tachypnea Community acquired pneumonia Hypoxia Requiring oxygen Hypokalemia- POA Elevated LFTs Tachycardia History of atrial fibrillation Anticoagulation on warfarin Hypertension presbyesophagus GERD Plan 06/11/18 Admit to inpatient status under the care of Dr. Urbina for sepsis and pneumonia. Will continue on IV Rocephin and IV Azithromycin for pulmonary coverage. Sputum cultures pending. will repeat a venous lactate as the last one did trend up Continue on scheduled DuoNeb breathing treatments 4 times a day. Currently on 2 liters of oxygen by nasal cannula Consultation placed to speech therapy given question for dysphagia. Recent Vomiting, hx of Presbyesophagus Replace oral potassium and monitor Home antihypertensives remain on hold at time of admission given sepsis This patient on cardiac telemetry. Given irregular heartbeat and known history of atrial fibrillation SCDs to bilateral lower extremity for DVT prophylaxis. Check CMP tomorrow morning to follow elevated LFTs Consultation with PT and OT, Given patient's weakness secondary to acute illness. Addendum: Progressive deterioration in respiratory status through the day prompted switching from ceftriaxone to Zosyn for broader coverage and anaerobic coverage. Later transferred to ICU and diuresis initiated due to concern that he was becoming volume overloaded. Echo ordered for a.m. 06/12/18 Converted from ceftriaxone to Zosyn yesterday evening for broader coverage and anaerobic coverage given known history of presbyesophagus and risk of aspiration. Azithromycin continued for atypical coverage. Respiratory viral panel negative, urine antigens pending as is sputum culture. Afebrile overnight, appears clinically improved this morning overall. Continue aggressive breathing treatments and Solu-Medrol for additional 24 hours after which will begin tapering. Discussed with RT-Acapella to be initiated. Volume overloaded with development of acute congestive heart failure and component of pulmonary edema following volume replacement yesterday; now known to have moderately severe aortic stenosis by echo this morning. Cardiology consulted. Continue diuresis initiated yesterday evening. Blood pressure improved from yesterday, no recurrent "spells". Ongoing potassium replacement. Resolution of abnormal liver enzymes. 06/13/18 Patient reports clinical improvement, afebrile, decreasing cough and improved exertional tolerance. Continue Zosyn; complete 3 days azithromycin today. Sputum culture/blood cultures pending. Chest x-ray in a.m. White count climbing but no sign of worsening infection; likely due to steroids. Begin titrating steroid dose; continue breathing treatments and Acapella with treatments. Diuresed well yesterday, now has net negative fluid balance compared to admission. Stable cardiac rhythm, persistent low-grade tachycardia, metoprolol dose increased by cardiology for improved rate control. INR remains elevated, low-dose vitamin K given to prevent further climb and anticipate stabilization as oral intake improves and following discontinuation of azithromycin. Mental status clearing, appears to in the evening-continue to monitor. Requires ongoing potassium supplementation-recheck potassium later today to determine if additional potassium needed. 06/14/18 Continued clinical improvement, partial clearing on chest x-ray. With identification of Haemophilus influenza will resume ceftriaxone and discontinue Zosyn. Continue to monitor leukocytosis with change in antibiotics and as steroids tapered. If doing well tomorrow will convert prednisone. Heart rate improving although tachycardic with minimal activity. Metoprolol increased yesterday BUN/creatinine up slightly today-Lasix decreased to daily. Potassium is stabilized, decrease potassium supplement in conjunction with decreased diuresis. Valvular heart disease present-aortic stenosis not adequately visualized on transthoracic study -anticipate SIRISHA in the near future with left heart catheter. Mental status significantly improved from first 2 days in the hospital. INR down slightly today but remains super-therapeutic, warfarin remains on hold.
--- NOTE | 2018-06-14 14:15 | Cardiology Progress Note ---
Subjective Principal diagnosis: dyspnea Interval history: Anthony is seen in follow up of , A Fib with RVR. He is lying in bed, visitor at bedside. States his breathing is improved but still has a frequent productive cough. He denies chest pain, palpitations, dizziness or nausea. Verballizes understanding of potential SIRISHA and heart cath this next week. Exam Vital signs: Temperature 97.8 F 06/14/18 12:00 Pulse Rate 92 06/14/18 12:15 Respiratory Rate 28 H 06/14/18 12:15 Blood Pressure 126/61 06/14/18 12:00 Pulse Oximetry 95 06/14/18 14:11 Inpatient Medications: Generic Name Dose Route Start Last Admin Trade Name Freq PRN Reason Stop Dose Admin Acetaminophen 650 mg 06/11/18 19:45 Tylenol PO QID PRN Discomfort Hydrocodone Bitart/Acetaminophen 1 tab 06/10/18 22:27 Viola 5/325 PO Q6H PRN Pain Albuterol Sulfate 5 mg 06/12/18 11:20 Proventil Neb (0.5%) AEROSOL Q2H PRN Albuterol/Ipratropium 3 ml 06/10/18 23:36 Duoneb AEROSOL Q4H PRN Albuterol/Ipratropium 3 ml 06/11/18 11:00 06/14/18 10:53 Duoneb AEROSOL Not Given RTQID JOSE A Amlodipine Besylate 5 mg 06/11/18 09:00 06/14/18 09:13 Norvasc PO 5 mg DAILY JOSE A Administration Cholecalciferol 1,000 unit 06/11/18 09:00 06/14/18 09:13 Vit. D-3 PO 1,000 unit DAILY JOSE A Administration Citalopram Hydrobromide 20 mg 06/11/18 21:00 06/13/18 20:05 Celexa PO 20 mg HS JOSE A Administration Ezetimibe 10 mg 06/11/18 21:00 06/13/18 20:05 Zetia PO 10 mg HS JOSE A Administration Furosemide 40 mg 06/15/18 09:00 Lasix 40 Mg/4 Ml IVP DAILY JOSE A Guaifenesin 400 mg 06/11/18 10:52 06/14/18 02:54 Robitussin Liq PO 400 mg Q6H PRN Administration Cough /Congestion Sodium Chloride 1,000 mls @ 100 mls/hr 06/10/18 22:27 06/11/18 21:03 Normal Saline IV Infused .Q10H JOSE A Infusion Ceftriaxone Sodium 1 g/ Sodium 100 mls @ 200 mls/hr 06/14/18 14:00 Chloride IV Q24H JOSE A Latanoprost 1 drops 06/11/18 21:00 06/13/18 20:05 Xalatan EACH EYE 1 drops HS JOSE A Administration Lisinopril 10 mg 06/12/18 13:30 06/14/18 09:13 Prinivil PO 10 mg DAILY JOSE A Administration Lorazepam 1 mg 06/12/18 18:05 Ativan Inj IVP Q4H PRN Methylprednisolone Sodium Succinate 62.5 mg 06/13/18 17:00 06/14/18 09:43 Solu-Medrol IVP 62.5 mg Q8HR JOSE A Administration Metoprolol Tartrate 5 mg 06/11/18 23:09 06/13/18 16:05 Lopressor IVP 5 mg Q6H PRN Administration Metoprolol Tartrate 75 mg 06/13/18 17:30 06/14/18 09:53 Lopressor PO 75 mg BIDWM JOSE A Administration Omeprazole 20 mg 06/11/18 06:30 06/14/18 05:30 Prilosec PO Not Given ACB [facility] Ondansetron HCl 4 mg 06/10/18 22:27 Zofran IVP Q6H PRN Nausea &/or vomiting Potassium Chloride 20 meq 06/15/18 08:00 K-Dur 20 Meq Tablet PO WB [facility] Senna/Docusate Sodium 1 tab 06/10/18 22:27 Senna Plus Tablet PO BID PRN Constipation Simvastatin 40 mg 06/11/18 21:00 06/13/18 20:05 Zocor PO 40 mg HS JOSE A Administration Sodium Chloride 10 - 80 ml 06/10/18 20:50 06/13/18 16:23 Iv Flush IVF 40 ml PRN PRN Administration Flushing Sodium Chloride 500 ml 06/12/18 20:08 06/12/18 20:09 Normal Saline IV 500 ml PRN PRN Administration Warfarin Sodium 0 06/11/18 12:00 Coumadin Protocol NOTE JOSE A Discontinued Medications Generic Name Dose Route Start Last Admin Trade Name Freq PRN Reason Stop Dose Admin Acetaminophen 325 - 650 mg 06/10/18 22:27 Tylenol NC Q5H PRN Pain Hydrocodone Bitart/Acetaminophen 1 tab 06/10/18 21:56 06/10/18 21:58 Viola 5/325 PO 06/10/18 21:57 1 tab O ONE Administration Albuterol Sulfate 2.5 mg 06/10/18 20:52 06/10/18 20:58 Proventil Neb (0.083%) AEROSOL 06/10/18 20:53 2.5 mg O ONE Administration Albuterol Sulfate 5 mg 06/10/18 23:52 Proventil Neb (0.5%) AEROSOL RTQID PRN Albuterol/Ipratropium 3 ml 06/11/18 07:00 06/11/18 08:57 Duoneb AEROSOL 3 ml RTBID JOSE A Administration Azithromycin 500 mg 06/10/18 21:47 06/10/18 21:55 Zithromax PO 06/10/18 21:48 Not Given O ONE Enoxaparin Sodium 40 mg 06/11/18 09:00 06/11/18 09:07 Lovenox SQ 40 mg DAILY JOSE A Administration Furosemide 40 mg 06/11/18 21:19 06/11/18 21:22 Lasix 40 Mg/4 Ml IVP 06/11/18 21:20 40 mg O ONE Administration Furosemide 40 mg 06/12/18 08:31 06/12/18 10:10 Lasix 40 Mg/4 Ml IVP 06/12/18 08:32 40 mg ONE TIME ONE Administration Furosemide 40 mg 06/12/18 17:00 06/14/18 01:25 Lasix 40 Mg/4 Ml IVP 40 mg Q8HR JOSE A Administration Furosemide 40 mg 06/14/18 21:00 Lasix 40 Mg/4 Ml IVP Q12HR JOSE A Haloperidol Lactate 1 mg 06/12/18 17:24 06/12/18 17:15 Haldol IVP 06/13/18 00:00 1 mg Q4H PRN Administration Sodium Chloride 1,000 mls @ 999.9 mls/hr 06/10/18 20:51 06/10/18 21:55 Normal Saline IV 06/10/18 21:50 Infused .Q1H ONE Infusion Azithromycin 500 mg/ Sodium 250 mls @ 167 mls/hr 06/10/18 21:49 06/10/18 21: 55 Chloride IV 06/10/18 23:18 167 mls/hr O ONE Administration Azithromycin 500 mg/ Sodium 250 mls @ 167 mls/hr 06/11/18 22:00 06/13/18 00: 00 Chloride IV 06/13/18 21:59 Infused Q24H JOSE A Infusion Ceftriaxone Sodium 1 g/ Sodium 100 mls @ 200 mls/hr 06/11/18 22:00 Chloride IV Q24H JOSE A Sodium Chloride 1,000 mls @ 250 mls/hr 06/11/18 14:00 06/11/18 19:34 Normal Saline IV Not Given .Q4H JOSE A Piperacillin Sod/Tazobactam 100 mls @ 200 mls/hr 06/11/18 19:45 06/14/18 09: 22 Sod 3.375 gm/ Sodium Chloride IV Infused Q6H [facility] Infusion Lisinopril 10 mg 06/11/18 09:00 Prinivil PO DAILY JOSE A Lorazepam 0.5 mg 06/11/18 14:04 06/12/18 17:03 Ativan Inj IVP 0.5 mg Q4H PRN Administration Methylprednisolone Sodium Succinate 125 mg 06/11/18 17:00 06/13/18 08:36 Solu-Medrol IVP 125 mg Q8HR [facility] Administration Metoprolol Tartrate 50 mg 06/11/18 09:00 Lopressor PO BID JOSE A Metoprolol Tartrate 50 mg 06/11/18 11:49 06/13/18 08:38 Lopressor PO 50 mg BIDWM JOSE A Administration Metoprolol Tartrate 25 mg 06/13/18 12:14 06/13/18 12:24 Lopressor PO 06/13/18 12:15 25 mg O ONE Administration Non-Formulary Medication 1,000 unit 06/11/18 21:00 Cholecalciferol (Vitamin D3) [Vitamin D3] PO HS [facility] Pharmacy Consult 1 each 06/10/18 23:12 06/11/18 12:00 Pharmacy Consult - Fall Risk 06/10/18 23:13 1 each ONE TIME ONE Administration Pharmacy Consult each 06/12/18 00:46 Pharmacy Consult - Fall Risk 06/12/18 00:47 ONE TIME ONE Phytonadione 0.5 mg 06/13/18 12:00 06/13/18 12:23 Vitamin K Oral Liq PO 06/13/18 12:01 0.5 mg O ONE Administration Potassium Chloride 40 meq 06/11/18 11:55 06/11/18 12:03 K-Dur 20 Meq Tablet PO 06/11/18 11:56 40 meq O ONE Administration Potassium Chloride 40 meq 06/12/18 11:21 06/12/18 15:39 K-Dur 20 Meq Tablet PO 06/12/18 11:22 40 meq ONCE ONE Administration Potassium Chloride 20 meq 06/12/18 12:00 06/14/18 13:12 K-Dur 20 Meq Tablet PO 20 meq TIDWM JOSE A Administration Potassium Chloride 40 meq 06/13/18 10:29 06/13/18 11:20 K-Dur 20 Meq Tablet PO 06/13/18 10:30 40 meq O ONE Administration Potassium Chloride 20 meq 06/13/18 17:15 06/13/18 17:52 K-Dur 20 Meq Tablet PO 06/13/18 17:16 20 meq ONCE ONE Administration Prednisone 40 mg 06/11/18 15:39 Deltasone 20 Mg PO 06/11/18 15:40 O ONE Prednisone 40 mg 06/12/18 08:00 Deltasone 20 Mg PO 06/16/18 07:59 WB [facility] Warfarin Sodium 2.5 mg 06/11/18 12:30 06/12/18 15:39 Coumadin PO 2.5 mg [id number] [facility] Administration Warfarin Sodium 5 mg 06/13/18 12:00 Coumadin PO [id number] [facility] Warfarin Sodium 1 each 06/11/18 11:45 06/11/18 12:04 Pharmacy Consult - Warfarin 06/11/18 11:46 1 each O ONE Administration - Constitutional no acute distress, well nourished, well developed, cooperative - Routine HEENT Exam Head: Present: normocephalic, atraumatic Eye: Present: EOMI, PERRL ENT: Present: mucous membranes moist - Routine Neck Exam Present: supple, trachea midline. Absent: JVD - Routine Respiratory Exam Present: rhonchi. Absent: accessory muscle use, dyspnea - Routine Cardiovascular Exam Present: RRR, S1, S2. Absent: no murmur, gallop, rubs, JVD - Routine Abdominal Exam Present: soft, normoactive bowel sounds, non distended. Absent: tenderness - Routine Extremities Exam Present: pulses intact. Absent: cyanosis, clubbing, edema - Routine Skin Exam Present: intact, dry, warm. Absent: jaundice, rash - Routine Neurological Exam Present: alert, oriented X3, CN II-XII intact, moving all extremities, normal speech - Routine Psychiatric Exam Present: normal affect, normal thought process, cooperative - Urinary Catheter Management Urethral Cath placed during this visit: yes, but has since been removed by the nurse Urethral indwelling: Yes Reason for continuing: Accurate I&O/Aggressive Diuresis Insertion date: 06/11/18 Insertion time: 17:25 Removal date: 06/12/18 Removal time: 02:10 Coude Cath placed during this visit: yes Insertion date: 06/12/18 Insertion time: 02:15 Results 06/14/18 05:00 06/14/18 05:00 CBC 06/14/18 Range/Units 05:00 WBC 24.0 H (4.5-11.0) T/MM3 RBC 4.30 L (4.50-5.90) M/MM3 Hgb 13.3 L (13.5-17.5) GM/DL Hct 40.2 L (41-53) % Plt Count 190 (130-400) T/MM3 Neut # (Auto) Not performed Lymph # (Auto) Not performed Bullock # (Auto) Not performed Eos # (Auto) Not performed Baso # (Auto) Not performed Comprehensive Metabolic Panel 06/13/18 06/14/18 Range/Units 16:34 05:00 Sodium 144 (136-146) MEQ/L Potassium 3.3 L 3.7 (3.6-5) MEQ/L Chloride 105 (98-107) MEQ/L Carbon Dioxide 26 (22-30) MEQ/L BUN 37.0 H (9-20) MG/DL Creatinine 1.2 D (0.8-1.5) mg/dL Glucose 164 H (75-110) MG/DL Calcium 8.4 (8.4-10.2) MG/DL Albumin 3.4 L (3.5-5.0) g/dL Intake and Output 06/13/18 06/14/18 06/14/18 22:59 06:59 14:59 Intake Total 530 / 530 500 / 500 580 / 580 Output Total 685 / 685 1085 / 1085 465 / 465 Balance -155 / -155 -585 / -585 115 / 115 Intake: IV 100 / 100 100 / 100 100 / 100 Piperacillin/Tazobactam 3.375 100 / 100 100 / 100 100 / 100 gm In Ns 100 ml @ 200 mls/hr IV Q6H [facility] Rx#:[id number] Oral 430 / 430 400 / 400 480 / 480 Output: Urine Amount (Catheter) 685 / 685 1085 / 1085 465 / 465 Other: Urine Appearance Clear Clear Clear Urine Color Yellow Yellow Light Shayna Stool Color Brown Brown Stool Consistency Loose Soft Size of Bowel Movement Moderate Smear # Bowel Movements 1 # Incontinent Bowel Movements 1 Weight 108.6 kg Patient Weight 06/15/18 06:59 Weight 108.6 kg - Imaging and Cardiology Echo: report reviewed EKG results: report reviewed - EKG Interpretation EKG: sinus rhythm Assessment and Plan - Assessment and Plan (1) Sepsis Current visit: Yes Status: Acute (2) Paroxysmal A-fib Current visit: Yes Status: Chronic (3) HTN (hypertension) Current visit: Yes Status: Chronic (4) Pneumonia Current visit: Yes Status: Acute (5) Pulmonary edema Current visit: Yes Status: Acute (6) Mixed hyperlipidemia Current visit: Yes Status: Chronic (7) NSTEMI (non-ST elevated myocardial infarction) Current visit: Yes Status: Acute (8) Severe aortic stenosis Current visit: Yes Status: Acute - Assessment and Plan 06/14/18 Severe aortic stenosis Current visit: Yes Status: Acute - Not well visualized on 2 D echo, will need SIRISHA - Diurese with Lasix 40mg IV q8h - monitor renal and electrolytes - plan SIRISHA/ LHC for further evaluation when more stable (probably Saturday) NSTEMI (non-ST elevated myocardial infarction) Current visit: Yes Status: Acute - Type II, secondary to fluid overload, pneumonia - Troponin trending down: 1) 0.106, 2) 0.372, 3) 0.220 - 06/11/181956 EKG: A Fib HR 83, lateral GA, indeterminate age, ST depression in V6 - Continue BB, Statin, anticoagulated on Warfarin (INR 4.50) Pulmonary edema Current visit: Yes Status: Acute - Lasix 40mg IV daily - Potassium 20meq po daily - monitor renal and electrolytes Sepsis Current visit: Yes Status: Acute - Per hospitalist Pneumonia Current visit: Yes Status: Acute - per hospitalist Paroxysmal A-fib Current visit: Yes Status: Chronic - Rate well controlled, continue metoprolol - INR 4.37, chronic anticoagulation on warfarin - Monitor lytes. Keep K >4, Mg >2 HTN (hypertension) Current visit: Yes Status: Chronic - Continue Amlodipine, metoprolol and lisinopril Mixed hyperlipidemia Current visit: Yes Status: Chronic - Continue Statin therapy Thank you for allowing us to participate in the care of this patient, we will follow along with you. Hospital Course Summary Disclaimer: The visit summary below is not to be considered part of the above Progress Note. Hospital Course: Impression Sepsis, sepsis 1. CAP 2. Leukocytosis, 3. Bandemia, 4. Tachycardia, 5. Tachypnea Community acquired pneumonia Hypoxia Requiring oxygen Hypokalemia- POA Elevated LFTs Tachycardia History of atrial fibrillation Anticoagulation on warfarin Hypertension presbyesophagus GERD Plan 06/11/18 Admit to inpatient status under the care of Dr. Urbina for sepsis and pneumonia. Will continue on IV Rocephin and IV Azithromycin for pulmonary coverage. Sputum cultures pending. will repeat a venous lactate as the last one did trend up Continue on scheduled DuoNeb breathing treatments 4 times a day. Currently on 2 liters of oxygen by nasal cannula Consultation placed to speech therapy given question for dysphagia. Recent Vomiting, hx of Presbyesophagus Replace oral potassium and monitor Home antihypertensives remain on hold at time of admission given sepsis This patient on cardiac telemetry. Given irregular heartbeat and known history of atrial fibrillation SCDs to bilateral lower extremity for DVT prophylaxis. Check CMP tomorrow morning to follow elevated LFTs Consultation with PT and OT, Given patient's weakness secondary to acute illness. Addendum: Progressive deterioration in respiratory status through the day prompted switching from ceftriaxone to Zosyn for broader coverage and anaerobic coverage. Later transferred to ICU and diuresis initiated due to concern that he was becoming volume overloaded. Echo ordered for a.m. 06/12/18 Converted from ceftriaxone to Zosyn yesterday evening for broader coverage and anaerobic coverage given known history of presbyesophagus and risk of aspiration. Azithromycin continued for atypical coverage. Respiratory viral panel negative, urine antigens pending as is sputum culture. Afebrile overnight, appears clinically improved this morning overall. Continue aggressive breathing treatments and Solu-Medrol for additional 24 hours after which will begin tapering. Discussed with RT-Acapella to be initiated. Volume overloaded with development of acute congestive heart failure and component of pulmonary edema following volume replacement yesterday; now known to have moderately severe aortic stenosis by echo this morning. Cardiology consulted. Continue diuresis initiated yesterday evening. Blood pressure improved from yesterday, no recurrent "spells". Ongoing potassium replacement. Resolution of abnormal liver enzymes. 06/13/18 Patient reports clinical improvement, afebrile, decreasing cough and improved exertional tolerance. Continue Zosyn; complete 3 days azithromycin today. Sputum culture/blood cultures pending. Chest x-ray in a.m. White count climbing but no sign of worsening infection; likely due to steroids. Begin titrating steroid dose; continue breathing treatments and Acapella with treatments. Diuresed well yesterday, now has net negative fluid balance compared to admission. Stable cardiac rhythm, persistent low-grade tachycardia, metoprolol dose increased by cardiology for improved rate control. INR remains elevated, low-dose vitamin K given to prevent further climb and anticipate stabilization as oral intake improves and following discontinuation of azithromycin. Mental status clearing, appears to in the evening-continue to monitor. Requires ongoing potassium supplementation-recheck potassium later today to determine if additional potassium needed. 06/14/18 Continued clinical improvement, partial clearing on chest x-ray. With identification of Haemophilus influenza will resume ceftriaxone and discontinue Zosyn. Continue to monitor leukocytosis with change in antibiotics and as steroids tapered. If doing well tomorrow will convert prednisone. Heart rate improving although tachycardic with minimal activity. Metoprolol increased yesterday BUN/creatinine up slightly today-Lasix decreased to daily. Potassium is stabilized, decrease potassium supplement in conjunction with decreased diuresis. Valvular heart disease present-aortic stenosis not adequately visualized on transthoracic study -anticipate SIRISHA in the near future with left heart catheter. Mental status significantly improved from first 2 days in the hospital. INR down slightly today but remains super-therapeutic, warfarin remains on hold.
[2018-06-14] MEDS: CEFTRIAXONE 1 G in NS 100 ML IV SCH (15:34)
[2018-06-14] MEDS: CITALOPRAM 20 MG TABLET PO SCH (20:25)
[2018-06-14] MEDS: EZETIMIBE 10 MG TABLET PO SCH (20:25)
[2018-06-14] MEDS: SIMVASTATIN 40 MG TABLET PO SCH (20:26)
[2018-06-14] MEDS: LATANOPROST 0.005% EYE DROPS 2.5ml EACH EYE SCH (20:26)
[2018-06-14] MEDS ORDERED: FUROSEMIDE 40 MG/4 ML INJECTION IVP SCH (21:00)
[2018-06-15] MEDS: METHYLPREDNISOLONE SOD SUCC 125mg/2ml INJECTION IVP SCH ×2 (01:24→08:55)
[2018-06-15] MEDS: OMEPRAZOLE 20 MG CAPSULE PO SCH ×2 (04:20→06:13)
[2018-06-15] MEDS: GUAIFENESIN 200mg/10ml ORAL LIQUID PO PRN ×3 (04:30→23:24)
[2018-06-15] MEDS: ALBUTEROL/IPRATROPIUM 2.5mg-0.5mg/3ml NEB AEROSOL SCH ×3 (07:40→19:23)
[2018-06-15] MEDS: AMLODIPINE 5 MG TABLET PO SCH (08:52)
[2018-06-15] MEDS: LISINOPRIL 10 MG TABLET PO SCH (08:52)
[2018-06-15] MEDS: FUROSEMIDE 40 MG/4 ML INJECTION IVP SCH (08:56)
--- NOTE | 2018-06-15 10:12 | Pharmacy Consult ---
Pharmacy Consult-Warfarin - Laboratory Information 06/10/18 06/10/18 06/10/18 20:59 20:59 21:00 Hgb 14.1 Hct 41.8 INR 2.81 H AST 92 H ALT 66 H Albumin 4.0 06/11/18 06/12/18 06/12/18 01:36 04:12 04:12 Hgb 13.3 L 13.5 Hct 40.3 L 41.4 INR AST 57 ALT 50 Albumin 3.8 06/12/18 06/13/18 06/13/18 04:12 03:58 03:58 Hgb 13.3 L Hct 39.6 L INR 4.50 H* 5.33 H* AST ALT Albumin 06/14/18 06/14/18 06/14/18 05:00 05:00 05:00 Hgb 13.3 L Hct 40.2 L INR 4.37 H AST ALT Albumin 3.4 L 06/15/18 06/15/18 04:08 04:08 Hgb 12.9 L Hct 38.3 L INR 3.79 H AST ALT Albumin - Consult Information COUMADIN CONSULT (Recurring): 78 yr old male 6'2" 103.8 kg admitted for pneumonia. On warfarin at home for A- Fib. Home med dose of warfarin is 5 mg twice a week and 2.5 mg 5 x week. Patient is on Rocephin which can elevate the INR. INR has decreased down to 3.79. Will continue to hold the warfarin until it drops back into the therapeutic range below 3.0. Thank you. Alessandra Hensley, PharmD
[2018-06-15] MEDS ORDERED: LOPERAMIDE 2 MG CAPSULE PO PRN (11:42)
--- NOTE | 2018-06-15 14:15 | Progress Note ---
- Date 06/15/18 Subjective: Mr. Kilgore was seen this morning at which time he describes minimal dyspnea but cough productive of thick sputum. He denied chest pain, palpitations, nausea, abdominal pain, or heartburn. He's had loose stools this morning without recurrent fever. He has mild lightheadedness when he moves around. He is sleeping well and eating well. Oxygen has been titrated to 3 L and Larios catheter remains in. Objective Vital signs: Temperature 98.5 F 06/15/18 08:00 Pulse Rate 105 H 06/15/18 12:00 Respiratory Rate 25 H 06/15/18 13:00 Blood Pressure 120/69 06/15/18 11:00 Pulse Oximetry 97 -3 L 06/15/18 13:00 I/O 980/1630 NAD, alert, talkative EOMI, conjunctiva clear, sclera anicteric Respirations nonlabored with good airflow, faint crackles at the bases posteriorly but no wheezing Irregular cardiac rhythm, S1-S2 Abdomen soft, nontender, nondistended, bowel sounds present Extremities with trace edema bilaterally Moving all extremities well Rhythm: Atrial Fibrillation with Normal Ventricular Rate, Atrial Fibrillation with RVR Height/Weight/BMI: Height 1.88 m Weight 108.6 kg Body Mass Index 29.3 Results - Labs CBC & Chem 7: 06/15/18 04:08 06/15/18 04:08 Labs: S85 B1 L14 INR 3.79 Magnesium 2.2 Microbiology Results: Microbiology 06/11/18 18:03 Peripheral/Iv Start Blood Culture - Preliminary No Growth After 3 Days 06/11/18 17:51 Peripheral/Iv Start Blood Culture - Preliminary No Growth After 3 Days 06/11/18 09:26 Sputum, Expectorated Gram Stain - Final 06/11/18 09:26 Sputum, Expectorated Sputum Culture - Final Haemophilus influenzae Normal Respiratory Malini 06/11/18 17:27 Urine Legionella Urinary Antigen - Final 06/11/18 17:27 Urine Streptococcus pneumoniae Antigen (M - Final Assessment and Plan (1) Severe sepsis Current visit: Yes Status: Acute (2) Pneumonia Current visit: Yes Status: Acute Assessment and Plan: Impression Sepsis-severe 1. CAP 2. Leukocytosis, 3. Bandemia, 4. Tachycardia, 5. Tachypnea, 6. Lactic acidosis Community acquired pneumonia-Haemophilus influenza Acute hypoxic respiratory failure Hypokalemia- POA Pulmonary edema Acute congestive heart failure-valvular Non-ST elevation MT-probable type II MT Aortic stenosis-moderate severe Elevated LFTs-resolved Tachycardia Atrial fibrillation, chronic Anticoagulation on warfarin Hypertension Presbyesophagus GERD Plan Continued progress, day 5 of antibiotics for Haemophilus influenza pneumonia. Afebrile, white count improving as is oxygen demand. Convert to prednisone po. Continue diuresis with Lasix daily; anticipate SIRISHA and left heart catheter in near future. Heart rate relatively well controlled, intermittent tachycardia-primarily with activities. Blood pressure stable. Fasting blood sugars modestly elevated-A1c in a.m. Loose stools described today, C. difficile PCR will be checked. INR improving but remains super-therapeutic, warfarin remains on hold. Begin bladder training, had planned to leave Larios in pending heart catheter but if procedures will be delayed will likely benefit from Larios removal soon. Discussed with nursing. DVT Prophylaxis: SCD's, Coumadin GI Prophylaxis: Omeprazole Resuscitation Status: Full Code - Physician Narrative Narrative: Date: 06/15/18 Time: 1412 Hospital Course Summary Disclaimer: The visit summary below is not to be considered part of the above Progress Note. Hospital Course: Impression Sepsis, sepsis 1. CAP 2. Leukocytosis, 3. Bandemia, 4. Tachycardia, 5. Tachypnea Community acquired pneumonia Hypoxia Requiring oxygen Hypokalemia- POA Elevated LFTs Tachycardia History of atrial fibrillation Anticoagulation on warfarin Hypertension presbyesophagus GERD Plan 06/11/18 Admit to inpatient status under the care of Dr. Urbina for sepsis and pneumonia. Will continue on IV Rocephin and IV Azithromycin for pulmonary coverage. Sputum cultures pending. will repeat a venous lactate as the last one did trend up Continue on scheduled DuoNeb breathing treatments 4 times a day. Currently on 2 liters of oxygen by nasal cannula Consultation placed to speech therapy given question for dysphagia. Recent Vomiting, hx of Presbyesophagus Replace oral potassium and monitor Home antihypertensives remain on hold at time of admission given sepsis This patient on cardiac telemetry. Given irregular heartbeat and known history of atrial fibrillation SCDs to bilateral lower extremity for DVT prophylaxis. Check CMP tomorrow morning to follow elevated LFTs Consultation with PT and OT, Given patient's weakness secondary to acute illness. Addendum: Progressive deterioration in respiratory status through the day prompted switching from ceftriaxone to Zosyn for broader coverage and anaerobic coverage. Later transferred to ICU and diuresis initiated due to concern that he was becoming volume overloaded. Echo ordered for a.m. 06/12/18 Converted from ceftriaxone to Zosyn yesterday evening for broader coverage and anaerobic coverage given known history of presbyesophagus and risk of aspiration. Azithromycin continued for atypical coverage. Respiratory viral panel negative, urine antigens pending as is sputum culture. Afebrile overnight, appears clinically improved this morning overall. Continue aggressive breathing treatments and Solu-Medrol for additional 24 hours after which will begin tapering. Discussed with RT-Acapella to be initiated. Volume overloaded with development of acute congestive heart failure and component of pulmonary edema following volume replacement yesterday; now known to have moderately severe aortic stenosis by echo this morning. Cardiology consulted. Continue diuresis initiated yesterday evening. Blood pressure improved from yesterday, no recurrent "spells". Ongoing potassium replacement. Resolution of abnormal liver enzymes. 06/13/18 Patient reports clinical improvement, afebrile, decreasing cough and improved exertional tolerance. Continue Zosyn; complete 3 days azithromycin today. Sputum culture/blood cultures pending. Chest x-ray in a.m. White count climbing but no sign of worsening infection; likely due to steroids. Begin titrating steroid dose; continue breathing treatments and Acapella with treatments. Diuresed well yesterday, now has net negative fluid balance compared to admission. Stable cardiac rhythm, persistent low-grade tachycardia, metoprolol dose increased by cardiology for improved rate control. INR remains elevated, low-dose vitamin K given to prevent further climb and anticipate stabilization as oral intake improves and following discontinuation of azithromycin. Mental status clearing, appears to in the evening-continue to monitor. Requires ongoing potassium supplementation-recheck potassium later today to determine if additional potassium needed. 06/14/18 Continued clinical improvement, partial clearing on chest x-ray. With identification of Haemophilus influenza will resume ceftriaxone and discontinue Zosyn. Continue to monitor leukocytosis with change in antibiotics and as steroids tapered. If doing well tomorrow will convert prednisone. Heart rate improving although tachycardic with minimal activity. Metoprolol increased yesterday BUN/creatinine up slightly today-Lasix decreased to daily. Potassium is stabilized, decrease potassium supplement in conjunction with decreased diuresis. Valvular heart disease present-aortic stenosis not adequately visualized on transthoracic study -anticipate SIRISHA in the near future with left heart catheter. Mental status significantly improved from first 2 days in the hospital. INR down slightly today but remains super-therapeutic, warfarin remains on hold. 06/15/18 Continued progress, day 5 of antibiotics for Haemophilus influenza pneumonia. Afebrile, white count improving as is oxygen demand. Convert to prednisone po. Continue diuresis with Lasix daily; anticipate SIRISHA and left heart catheter in near future. Heart rate relatively well controlled, intermittent tachycardia-primarily with activities. Blood pressure stable. Fasting blood sugars modestly elevated-A1c in a.m. Loose stools described today, C. difficile PCR will be checked.
--- NOTE | 2018-06-15 14:25 | XRay Report ---
INDICATION: pneumonia/CHF PROCEDURE: CHEST 2-VIEWS UPRIGHT (PA & LAT) Encounter: Initial COMPARISON: June 12, 2018 FINDINGS: Right PICC line remains in place. Stable multifocal infiltrates along for differences in exposure technique. No pneumothorax. Trace pleural effusions. Heart size and mediastinal contours are stable. Pulmonary vascularity remains prominent. Impression: Stable multifocal infiltrates and pulmonary vascular congestion. .
[2018-06-15] MEDS: CEFTRIAXONE 1 G in NS 100 ML IV SCH (14:42)
[2018-06-15] MEDS: PredniSONE 20 MG TABLET PO SCH (14:51)
[2018-06-15] MEDS: SIMVASTATIN 40 MG TABLET PO SCH (20:11)
[2018-06-15] MEDS: EZETIMIBE 10 MG TABLET PO SCH (20:11)
[2018-06-15] MEDS: CITALOPRAM 20 MG TABLET PO SCH (20:11)
[2018-06-15] MEDS: LATANOPROST 0.005% EYE DROPS 2.5ml EACH EYE SCH (20:12)
[2018-06-16] MEDS: OMEPRAZOLE 20 MG CAPSULE PO SCH ×2 (04:07→06:02)
[2018-06-16] MEDS: ALBUTEROL/IPRATROPIUM 2.5mg-0.5mg/3ml NEB AEROSOL SCH ×3 (07:46→19:51)
[2018-06-16] MEDS: FUROSEMIDE 40 MG/4 ML INJECTION IVP SCH (08:16)
[2018-06-16] MEDS: PredniSONE 20 MG TABLET PO SCH (08:17)
[2018-06-16] MEDS: AMLODIPINE 5 MG TABLET PO SCH (08:17)
[2018-06-16] MEDS: LISINOPRIL 10 MG TABLET PO SCH (08:17)
[2018-06-16] MEDS: SALINE FLUSH 10ml SYRINGE IVF PRN ×2 (08:18→20:22)
--- NOTE | 2018-06-16 10:13 | Cardiology Progress Note ---
<Hanna Lepe Moreno - Last Filed: 06/16/18 14:09> Subjective Principal diagnosis: dyspnea Interval history: Anthony is seen in follow up of , A Fib with RVR. States his breathing is improved but still has a frequent productive cough. He denies chest pain, palpitations, dizziness or nausea. Verballizes understanding of potential SIRISHA and heart cath this next week. Patient states that he just wants to get better so he can go back home. He is usually active as he does not like to sit and watch TV. He works as a volunteer here at the hospital. Exam Vital signs: Temperature 97.9 F 06/16/18 07:00 Pulse Rate 92 06/16/18 07:48 Respiratory Rate 19 06/16/18 07:48 Blood Pressure 164/89 H 06/16/18 07:00 Pulse Oximetry 96 06/16/18 09:10 Inpatient Medications: Generic Name Dose Route Start Last Admin Trade Name Freq PRN Reason Stop Dose Admin Acetaminophen 650 mg 06/11/18 19:45 06/15/18 21:05 Tylenol PO 650 mg QID PRN Administration Discomfort Hydrocodone Bitart/Acetaminophen 1 tab 06/10/18 22:27 [place] 5/325 PO Q6H PRN Pain Albuterol Sulfate 5 mg 06/12/18 11:20 Proventil Neb (0.5%) AEROSOL Q2H PRN Albuterol/Ipratropium 3 ml 06/10/18 23:36 Duoneb AEROSOL Q4H PRN Albuterol/Ipratropium 3 ml 06/15/18 07:00 06/16/18 07:46 Duoneb AEROSOL 3 ml RTTID JOSE A Administration Amlodipine Besylate 5 mg 06/11/18 09:00 06/16/18 08:17 Norvasc PO 5 mg DAILY JOSE A Administration Cholecalciferol 1,000 unit 06/11/18 09:00 06/16/18 08:17 Vit. D-3 PO 1,000 unit DAILY JOSE A Administration Citalopram Hydrobromide 20 mg 06/11/18 21:00 06/15/18 20:11 Celexa PO 20 mg HS JOSE A Administration Ezetimibe 10 mg 06/11/18 21:00 06/15/18 20:11 Zetia PO 10 mg HS JOSE A Administration Furosemide 40 mg 06/15/18 09:00 06/16/18 08:16 Lasix 40 Mg/4 Ml IVP 40 mg DAILY JOSE A Administration Guaifenesin 400 mg 06/11/18 10:52 06/15/18 23:24 Robitussin Liq PO 200 mg Q6H PRN Administration Cough /Congestion Sodium Chloride 1,000 mls @ 100 mls/hr 06/10/18 22:27 06/11/18 21:03 Normal Saline IV Infused .Q10H JOSE A Infusion Ceftriaxone Sodium 1 g/ Sodium 100 mls @ 200 mls/hr 06/14/18 14:00 06/15/18 15:12 Chloride IV Infused Q24H JOSE A Infusion Latanoprost 1 drops 06/11/18 21:00 06/15/18 20:12 Xalatan EACH EYE 1 drops HS JOSE A Administration Lisinopril 10 mg 06/12/18 13:30 06/16/18 08:17 Prinivil PO 10 mg DAILY JOSE A Administration Loperamide HCl 2 mg 06/15/18 11:42 06/15/18 12:19 Imodium PO 2 mg PRN PRN Administration Protocol Lorazepam 1 mg 06/12/18 18:05 Ativan Inj IVP Q4H PRN Metoprolol Tartrate 5 mg 06/11/18 23:09 06/13/18 16:05 Lopressor IVP 5 mg Q6H PRN Administration Metoprolol Tartrate 75 mg 06/13/18 17:30 06/16/18 08:18 Lopressor PO 75 mg BIDWM JOSE A Administration Omeprazole 20 mg 06/11/18 06:30 06/16/18 06:02 Prilosec PO Not Given ACB JOSE A Ondansetron HCl 4 mg 06/10/18 22:27 Zofran IVP Q6H PRN Nausea &/or vomiting Potassium Chloride 20 meq 06/15/18 08:00 06/16/18 08:17 K-Dur 20 Meq Tablet PO 20 meq WB JOSE A Administration Prednisone 60 mg 06/15/18 14:23 06/16/18 08:17 Deltasone 20 Mg PO 60 mg WB JOSE A Administration Senna/Docusate Sodium 1 tab 06/10/18 22:27 Senna Plus Tablet PO BID PRN Constipation Simvastatin 40 mg 06/11/18 21:00 06/15/18 20:11 Zocor PO 40 mg HS JOSE A Administration Sodium Chloride 10 - 80 ml 06/10/18 20:50 06/16/18 08:18 Iv Flush IVF 30 ml PRN PRN Administration Flushing Sodium Chloride 500 ml 06/12/18 20:08 06/12/18 20:09 Normal Saline IV 500 ml PRN PRN Administration Warfarin Sodium 0 06/11/18 12:00 Coumadin Protocol NOTE JOSE A Discontinued Medications Generic Name Dose Route Start Last Admin Trade Name Freq PRN Reason Stop Dose Admin Acetaminophen 325 - 650 mg 06/10/18 22:27 Tylenol [place] Q5H PRN Pain Hydrocodone Bitart/Acetaminophen 1 tab 06/10/18 21:56 06/10/18 21:58 [place] 5/325 PO 06/10/18 21:57 1 tab O ONE Administration Albuterol Sulfate 2.5 mg 06/10/18 20:52 06/10/18 20:58 Proventil Neb (0.083%) AEROSOL 06/10/18 20:53 2.5 mg O ONE Administration Albuterol Sulfate 5 mg 06/10/18 23:52 Proventil Neb (0.5%) AEROSOL RTQID PRN Albuterol/Ipratropium 3 ml 06/11/18 07:00 06/11/18 08:57 Duoneb AEROSOL 3 ml RTBID JOSE A Administration Albuterol/Ipratropium 3 ml 06/11/18 11:00 06/14/18 19:01 Duoneb AEROSOL 3 ml RTQID JOSE A Administration Azithromycin 500 mg 06/10/18 21:47 06/10/18 21:55 Zithromax PO 06/10/18 21:48 Not Given O ONE Enoxaparin Sodium 40 mg 06/11/18 09:00 06/11/18 09:07 Lovenox SQ 40 mg DAILY JOSE A Administration Furosemide 40 mg 06/11/18 21:19 06/11/18 21:22 Lasix 40 Mg/4 Ml IVP 06/11/18 21:20 40 mg O ONE Administration Furosemide 40 mg 06/12/18 08:31 06/12/18 10:10 Lasix 40 Mg/4 Ml IVP 06/12/18 08:32 40 mg ONE TIME ONE Administration Furosemide 40 mg 06/12/18 17:00 06/14/18 20:58 Lasix 40 Mg/4 Ml IVP Not Given Q8HR JOSE A Furosemide 40 mg 06/14/18 21:00 Lasix 40 Mg/4 Ml IVP Q12HR JOSE A Haloperidol Lactate 1 mg 06/12/18 17:24 06/12/18 17:15 Haldol IVP 06/13/18 00:00 1 mg Q4H PRN Administration Sodium Chloride 1,000 mls @ 999.9 mls/hr 06/10/18 20:51 06/10/18 21:55 Normal Saline IV 06/10/18 21:50 Infused .Q1H ONE Infusion Azithromycin 500 mg/ Sodium 250 mls @ 167 mls/hr 06/10/18 21:49 06/10/18 21: 55 Chloride IV 06/10/18 23:18 167 mls/hr O ONE Administration Azithromycin 500 mg/ Sodium 250 mls @ 167 mls/hr 06/11/18 22:00 06/13/18 00: 00 Chloride IV 06/13/18 21:59 Infused Q24H JOSE A Infusion Ceftriaxone Sodium 1 g/ Sodium 100 mls @ 200 mls/hr 06/11/18 22:00 Chloride IV Q24H JOSE A Sodium Chloride 1,000 mls @ 250 mls/hr 06/11/18 14:00 06/11/18 19:34 Normal Saline IV Not Given .Q4H JOSE A Piperacillin Sod/Tazobactam 100 mls @ 200 mls/hr 06/11/18 19:45 06/14/18 14: 00 Sod 3.375 gm/ Sodium Chloride IV Infused Q6H JOSE A Infusion Lisinopril 10 mg 06/11/18 09:00 Prinivil PO DAILY JOSE A Lorazepam 0.5 mg 06/11/18 14:04 06/12/18 17:03 Ativan Inj IVP 0.5 mg Q4H PRN Administration Methylprednisolone Sodium Succinate 125 mg 06/11/18 17:00 06/13/18 08:36 Solu-Medrol IVP 125 mg Q8HR JOSE A Administration Methylprednisolone Sodium Succinate 62.5 mg 06/13/18 17:00 06/15/18 08:55 Solu-Medrol IVP 62.5 mg Q8HR JOSE A Administration Metoprolol Tartrate 50 mg 06/11/18 09:00 Lopressor PO BID JOSE A Metoprolol Tartrate 50 mg 06/11/18 11:49 06/13/18 08:38 Lopressor PO 50 mg BIDWM [facility] Administration Metoprolol Tartrate 25 mg 06/13/18 12:14 06/13/18 12:24 Lopressor PO 06/13/18 12:15 25 mg O ONE Administration Non-Formulary Medication 1,000 unit 06/11/18 21:00 Cholecalciferol (Vitamin D3) [Vitamin D3] PO [facility] Pharmacy Consult 1 each 06/10/18 23:12 06/11/18 12:00 Pharmacy Consult - Fall Risk 06/10/18 23:13 1 each ONE TIME ONE Administration Pharmacy Consult each 06/12/18 00:46 Pharmacy Consult - Fall Risk 06/12/18 00:47 ONE TIME ONE Phytonadione 0.5 mg 06/13/18 12:00 06/13/18 12:23 Vitamin K Oral Liq PO 06/13/18 12:01 0.5 mg O ONE Administration Potassium Chloride 40 meq 06/11/18 11:55 06/11/18 12:03 K-Dur 20 Meq Tablet PO 06/11/18 11:56 40 meq O ONE Administration Potassium Chloride 40 meq 06/12/18 11:21 06/12/18 15:39 K-Dur 20 Meq Tablet PO 06/12/18 11:22 40 meq ONCE ONE Administration Potassium Chloride 20 meq 06/12/18 12:00 06/14/18 13:12 K-Dur 20 Meq Tablet PO 20 meq TIDWM [facility] Administration Potassium Chloride 40 meq 06/13/18 10:29 06/13/18 11:20 K-Dur 20 Meq Tablet PO 06/13/18 10:30 40 meq O ONE Administration Potassium Chloride 20 meq 06/13/18 17:15 06/13/18 17:52 K-Dur 20 Meq Tablet PO 06/13/18 17:16 20 meq ONCE ONE Administration Potassium Chloride 20 meq 06/14/18 14:13 06/14/18 17:45 K-Dur 20 Meq Tablet PO 06/14/18 14:14 20 meq O ONE Administration Prednisone 40 mg 06/11/18 15:39 Deltasone 20 Mg PO 06/11/18 15:40 O ONE Prednisone 40 mg 06/12/18 08:00 Deltasone 20 Mg PO 06/16/18 07:59 WB [facility] Warfarin Sodium 2.5 mg 06/11/18 12:30 06/12/18 15:39 Coumadin PO 2.5 mg [id number]@1200 [facility] Administration Warfarin Sodium 5 mg 06/13/18 12:00 Coumadin PO MoFr@1200 [facility] Warfarin Sodium 1 each 06/11/18 11:45 06/11/18 12:04 Pharmacy Consult - Warfarin 06/11/18 11:46 1 each O ONE Administration - Constitutional no acute distress - Routine HEENT Exam Head: Present: normocephalic, atraumatic. Absent: facial swelling Eye: Present: EOMI, conjunctivae pink. Absent: conjunctival icterus ENT: Present: mucous membranes moist - Routine Neck Exam Present: supple, trachea midline. Absent: carotid bruit - Routine Chest/Breast/Axilla Exam Chest wall: Absent: tenderness - Routine Respiratory Exam Present: wheezes, crackles, distant breath sounds, diminished air movement. Absent: accessory muscle use - Routine Cardiovascular Exam Present: tachycardia, irregular rhythm Comments: Distant heart sounds - Routine Abdominal Exam Present: soft. Absent: distended - Routine Extremities Exam Absent: cyanosis Comments: Thickened toenails left 1+ pedal pulses bilat - Routine Skin Exam Absent: cyanosis - Routine Neurological Exam Present: alert. Absent: motor deficit - Routine Psychiatric Exam Present: normal affect, cooperative. Absent: anxious, agitated - Urinary Catheter Management Urethral Cath placed during this visit: no Urethral indwelling: Yes Coude Cath placed during this visit: yes Insertion date: 06/12/18 Insertion time: 02:15 Results 06/16/18 04:01 06/16/18 04:01 Cardiac Enzymes 06/16/18 Range/Units 04:01 AST 59 (17-59) U/L CBC 06/16/18 Range/Units 04:01 WBC 15.3 H (4.5-11.0) T/MM3 RBC 4.09 L (4.50-5.90) M/MM3 Hgb 12.8 L (13.5-17.5) GM/DL Hct 38.6 L (41-53) % Plt Count 200 (130-400) T/MM3 Neut # (Auto) Not performed Lymph # (Auto) Not performed [place] # (Auto) Not performed Eos # (Auto) Not performed Baso # (Auto) Not performed Comprehensive Metabolic Panel 06/16/18 Range/Units 04:01 Sodium 141 (136-146) MEQ/L Potassium 4.3 (3.6-5) MEQ/L Chloride 104 (98-107) MEQ/L Carbon Dioxide 29 (22-30) MEQ/L BUN 35.0 H (9-20) MG/DL Creatinine 0.8 (0.8-1.5) mg/dL Glucose 155 H (75-110) MG/DL Calcium 8.4 (8.4-10.2) MG/DL AST 59 (17-59) U/L ALT 126 H (1-50) U/L Alkaline Phosphatase 116 (38-126) U/L Total Protein 6.1 L (6.3-8.2) g/dL Albumin 3.0 L (3.5-5.0) g/dL Intake and Output 06/15/18 06/16/18 06/16/18 22:59 06:59 14:59 Intake Total 1075 / 1075 210 / 210 Output Total 435 / 435 470 / 470 300 / 300 Balance 640 / 640 -470 / -470 -90 / -90 Intake: IV 100 / 100 Ceftriaxone 1 g In Ns 100 ml @ 100 / 100 200 mls/hr IV Q24H [facility] Rx#: [id number] Oral 975 / 975 210 / 210 Output: Urine Amount (Catheter) 435 / 435 470 / 470 300 / 300 Other: Urine Appearance Clear Clear Sediment Urine Color Yellow Yellow Yellow Urine Odor Normal Stool Color Brown Stool Consistency Soft Size of Bowel Movement Moderate # Bowel Movements 1 Weight 109.1 kg Patient Weight 06/17/18 06:59 Weight 109.1 kg Assessment and Plan - Assessment and Plan (1) Sepsis Current visit: Yes Status: Acute Present upon admit (2) Paroxysmal A-fib Current visit: Yes Status: Chronic With rapid ventricular response May need to place Warfarin on hold to perform HC this admit VS outpatient HC when he recovers Will repeat Troponin - patient denies chest pain (3) HTN (hypertension) Current visit: Yes Status: Chronic Blood pressure and HR high Increase Metoprolol to 100mg BID and monitor response (4) Pneumonia Current visit: Yes Status: Acute Per attending (5) Pulmonary edema Current visit: Yes Status: Acute Increase Lasix to 40mg IV BID (6) Mixed hyperlipidemia Current visit: Yes Status: Chronic Medications reviewed Continue Zocor 40mg daily (7) NSTEMI (non-ST elevated myocardial infarction) Current visit: Yes Status: Acute The initial elevated Troponin upon admit could be due to Demand ischemia Repeat Troponin Patient has a hx of CAD (8) Severe aortic stenosis Current visit: Yes Status: Acute Patient may need SIRISHA to further evaluate the extent of his aortic stenosis (9) Supratherapeutic INR Current visit: Yes Status: Acute Today, INR 3.51 Warfarin has been ordered but not given due to high INR levels. (10) CHF (congestive heart failure) Current visit: Yes Status: Acute Pulmonary pressures high and this is likely due to CHF Likely this is Acute on chronic diastolic heart failure due to rapid atrial fibrillation but will await results of the 2 D-Echo to evaluate EF Meanwhile, increase Lasix to 40mg IV q 8 and monitor response - We do not want to over diurese a patient with severe aortic stenosis Patient was not on oxygen prior to this admit (11) Coronary artery disease Current visit: Yes Status: Acute Review testing performed in our office Hospital Course Summary Disclaimer: The visit summary below is not to be considered part of the above Progress Note. Hospital Course: Impression Sepsis, sepsis 1. CAP 2. Leukocytosis, 3. Bandemia, 4. Tachycardia, 5. Tachypnea Community acquired pneumonia Hypoxia Requiring oxygen Hypokalemia- POA Elevated LFTs Tachycardia History of atrial fibrillation Anticoagulation on warfarin Hypertension presbyesophagus GERD Plan 06/11/18 Admit to inpatient status under the care of Dr. Urbina for sepsis and pneumonia. Will continue on IV Rocephin and IV Azithromycin for pulmonary coverage. Sputum cultures pending. will repeat a venous lactate as the last one did trend up Continue on scheduled DuoNeb breathing treatments 4 times a day. Currently on 2 liters of oxygen by nasal cannula Consultation placed to speech therapy given question for dysphagia. Recent Vomiting, hx of Presbyesophagus Replace oral potassium and monitor Home antihypertensives remain on hold at time of admission given sepsis This patient on cardiac telemetry. Given irregular heartbeat and known history of atrial fibrillation SCDs to bilateral lower extremity for DVT prophylaxis. Check CMP tomorrow morning to follow elevated LFTs Consultation with PT and OT, Given patient's weakness secondary to acute illness. Addendum: Progressive deterioration in respiratory status through the day prompted switching from ceftriaxone to Zosyn for broader coverage and anaerobic coverage. Later transferred to ICU and diuresis initiated due to concern that he was becoming volume overloaded. Echo ordered for a.m. 06/12/18 Converted from ceftriaxone to Zosyn yesterday evening for broader coverage and anaerobic coverage given known history of presbyesophagus and risk of aspiration. Azithromycin continued for atypical coverage. Respiratory viral panel negative, urine antigens pending as is sputum culture. Afebrile overnight, appears clinically improved this morning overall. Continue aggressive breathing treatments and Solu-Medrol for additional 24 hours after which will begin tapering. Discussed with RT-Acapella to be initiated. Volume overloaded with development of acute congestive heart failure and component of pulmonary edema following volume replacement yesterday; now known to have moderately severe aortic stenosis by echo this morning. Cardiology consulted. Continue diuresis initiated yesterday evening. Blood pressure improved from yesterday, no recurrent "spells". Ongoing potassium replacement. Resolution of abnormal liver enzymes. 06/13/18 Patient reports clinical improvement, afebrile, decreasing cough and improved exertional tolerance. Continue Zosyn; complete 3 days azithromycin today. Sputum culture/blood cultures pending. Chest x-ray in a.m. White count climbing but no sign of worsening infection; likely due to steroids. Begin titrating steroid dose; continue breathing treatments and Acapella with treatments. Diuresed well yesterday, now has net negative fluid balance compared to admission. Stable cardiac rhythm, persistent low-grade tachycardia, metoprolol dose increased by cardiology for improved rate control. INR remains elevated, low-dose vitamin K given to prevent further climb and anticipate stabilization as oral intake improves and following discontinuation of azithromycin. Mental status clearing, appears to in the evening-continue to monitor. Requires ongoing potassium supplementation-recheck potassium later today to determine if additional potassium needed. 06/14/18 Continued clinical improvement, partial clearing on chest x-ray. With identification of Haemophilus influenza will resume ceftriaxone and discontinue Zosyn. Continue to monitor leukocytosis with change in antibiotics and as steroids tapered. If doing well tomorrow will convert prednisone. Heart rate improving although tachycardic with minimal activity. Metoprolol increased yesterday BUN/creatinine up slightly today-Lasix decreased to daily. Potassium is stabilized, decrease potassium supplement in conjunction with decreased diuresis. Valvular heart disease present-aortic stenosis not adequately visualized on transthoracic study -anticipate SIRISHA in the near future with left heart catheter. Mental status significantly improved from first 2 days in the hospital. INR down slightly today but remains super-therapeutic, warfarin remains on hold. 06/15/18 Continued progress, day 5 of antibiotics for Haemophilus influenza pneumonia. Afebrile, white count improving as is oxygen demand. Convert to prednisone po. Continue diuresis with Lasix daily; anticipate SIRISHA and left heart catheter in near future. Heart rate relatively well controlled, intermittent tachycardia-primarily with activities. Blood pressure stable. Fasting blood sugars modestly elevated-A1c in a.m. Loose stools described today, C. difficile PCR will be checked. <Braden Lund - Last Filed: 06/16/18 19:00> Exam Vital signs: Temperature 97 F 06/16/18 16:00 Pulse Rate 95 06/16/18 16:00 Respiratory Rate 26 H 06/16/18 16:00 Blood Pressure 119/69 06/16/18 16:00 Pulse Oximetry 94 06/16/18 16:00 Inpatient Medications: Generic Name Dose Route Start Last Admin Trade Name Freq PRN Reason Stop Dose Admin Acetaminophen 650 mg 06/11/18 19:45 06/15/18 21:05 Tylenol PO 650 mg QID PRN Administration Discomfort Hydrocodone Bitart/Acetaminophen 1 tab 06/10/18 22:27 [place] 5/325 PO Q6H PRN Pain Albuterol Sulfate 5 mg 06/12/18 11:20 Proventil Neb (0.5%) AEROSOL Q2H PRN Albuterol/Ipratropium 3 ml 06/10/18 23:36 Duoneb AEROSOL Q4H PRN Albuterol/Ipratropium 3 ml 06/15/18 07:00 06/16/18 12:40 Duoneb AEROSOL 3 ml RTTID JOSE A Administration Amlodipine Besylate 5 mg 06/11/18 09:00 06/16/18 08:17 Norvasc PO 5 mg DAILY JOSE A Administration Cholecalciferol 1,000 unit 06/11/18 09:00 06/16/18 08:17 Vit. D-3 PO 1,000 unit DAILY JOSE A Administration Citalopram Hydrobromide 20 mg 06/11/18 21:00 06/15/18 20:11 Celexa PO 20 mg HS JOSE A Administration Ezetimibe 10 mg 06/11/18 21:00 06/15/18 20:11 Zetia PO 10 mg HS JOSE A Administration Guaifenesin 400 mg 06/11/18 10:52 06/15/18 23:24 Robitussin Liq PO 200 mg Q6H PRN Administration Cough /Congestion Guaifenesin/Dextromethorphan 1 tab 06/16/18 11:40 06/16/18 14:08 Mucinex Dm PO 1 tab BID JOSE A Administration Ceftriaxone Sodium 1 g/ Sodium 100 mls @ 200 mls/hr 06/14/18 14:00 06/16/18 14:37 Chloride IV Infused Q24H JOSE A Infusion Latanoprost 1 drops 06/11/18 21:00 06/15/18 20:12 Xalatan EACH EYE 1 drops HS JOSE A Administration Lisinopril 10 mg 06/12/18 13:30 06/16/18 08:17 Prinivil PO 10 mg DAILY JOSE A Administration Loperamide HCl 2 mg 06/15/18 11:42 06/15/18 12:19 Imodium PO 2 mg PRN PRN Administration Protocol Lorazepam 1 mg 06/12/18 18:05 Ativan Inj IVP Q4H PRN Menthol 1 lozenge 06/16/18 11:40 Ricola Sf MM PRN PRN Cough Metoprolol Tartrate 5 mg 06/11/18 23:09 06/13/18 16:05 Lopressor IVP 5 mg Q6H PRN Administration Metoprolol Tartrate 100 mg 06/16/18 17:30 06/16/18 17:03 Lopressor PO 100 mg BIDWM JOSE A Administration Omeprazole 20 mg 06/11/18 06:30 06/16/18 06:02 Prilosec PO Not Given ACB JOSE A Ondansetron HCl 4 mg 06/10/18 22:27 Zofran IVP Q6H PRN Nausea &/or vomiting Potassium Chloride 20 meq 06/15/18 08:00 06/16/18 08:17 K-Dur 20 Meq Tablet PO 20 meq WB JOSE A Administration Prednisone 60 mg 06/15/18 14:23 06/16/18 08:17 Deltasone 20 Mg PO 60 mg WB JOSE A Administration Senna/Docusate Sodium 1 tab 06/10/18 22:27 Senna Plus Tablet PO BID PRN Constipation Simvastatin 40 mg 06/11/18 21:00 06/15/18 20:11 Zocor PO 40 mg HS JOSE A Administration Sodium Chloride 10 - 80 ml 06/10/18 20:50 06/16/18 08:18 Iv Flush IVF 30 ml PRN PRN Administration Flushing Sodium Chloride 500 ml 06/12/18 20:08 06/16/18 14:08 Normal Saline IV 500 ml PRN PRN Administration Discontinued Medications Generic Name Dose Route Start Last Admin Trade Name Freq PRN Reason Stop Dose Admin Acetaminophen 325 - 650 mg 06/10/18 22:27 Tylenol [place] Q5H PRN Pain Hydrocodone Bitart/Acetaminophen 1 tab 06/10/18 21:56 06/10/18 21:58 [place] 5/325 PO 06/10/18 21:57 1 tab O ONE Administration Albuterol Sulfate 2.5 mg 06/10/18 20:52 06/10/18 20:58 Proventil Neb (0.083%) AEROSOL 06/10/18 20:53 2.5 mg O ONE Administration Albuterol Sulfate 5 mg 06/10/18 23:52 Proventil Neb (0.5%) AEROSOL RTQID PRN Albuterol/Ipratropium 3 ml 06/11/18 07:00 06/11/18 08:57 Duoneb AEROSOL 3 ml RTBID JOSE A Administration Albuterol/Ipratropium 3 ml 06/11/18 11:00 06/14/18 19:01 Duoneb AEROSOL 3 ml RTQID JOSE A Administration Azithromycin 500 mg 06/10/18 21:47 06/10/18 21:55 Zithromax PO 06/10/18 21:48 Not Given O ONE Enoxaparin Sodium 40 mg 06/11/18 09:00 06/11/18 09:07 Lovenox SQ 40 mg DAILY JOSE A Administration Furosemide 40 mg 06/11/18 21:19 06/11/18 21:22 Lasix 40 Mg/4 Ml IVP 06/11/18 21:20 40 mg O ONE Administration Furosemide 40 mg 06/12/18 08:31 06/12/18 10:10 Lasix 40 Mg/4 Ml IVP 06/12/18 08:32 40 mg ONE TIME ONE Administration Furosemide 40 mg 06/12/18 17:00 06/14/18 20:58 Lasix 40 Mg/4 Ml IVP Not Given Q8HR JOSE A Furosemide 40 mg 06/14/18 21:00 Lasix 40 Mg/4 Ml IVP Q12HR JOSE A Furosemide 40 mg 06/15/18 09:00 06/16/18 08:16 Lasix 40 Mg/4 Ml IVP 40 mg DAILY JOSE A Administration Furosemide 40 mg 06/16/18 17:00 06/16/18 17:03 Lasix 40 Mg/4 Ml IVP 40 mg Q8HR JOSE A Administration Haloperidol Lactate 1 mg 06/12/18 17:24 06/12/18 17:15 Haldol IVP 06/13/18 00:00 1 mg Q4H PRN Administration Sodium Chloride 1,000 mls @ 999.9 mls/hr 06/10/18 20:51 06/10/18 21:55 Normal Saline IV 06/10/18 21:50 Infused .Q1H ONE Infusion Azithromycin 500 mg/ Sodium 250 mls @ 167 mls/hr 06/10/18 21:49 06/10/18 21: 55 Chloride IV 06/10/18 23:18 167 mls/hr O ONE Administration Sodium Chloride 1,000 mls @ 100 mls/hr 06/10/18 22:27 06/11/18 21:03 Normal Saline IV Infused .Q10H JOSE A Infusion Azithromycin 500 mg/ Sodium 250 mls @ 167 mls/hr 06/11/18 22:00 06/13/18 00: 00 Chloride IV 06/13/18 21:59 Infused Q24H JOSE A Infusion Ceftriaxone Sodium 1 g/ Sodium 100 mls @ 200 mls/hr 06/11/18 22:00 Chloride IV Q24H JOSE A Sodium Chloride 1,000 mls @ 250 mls/hr 06/11/18 14:00 06/11/18 19:34 Normal Saline IV Not Given .Q4H JOSE A Piperacillin Sod/Tazobactam 100 mls @ 200 mls/hr 06/11/18 19:45 06/14/18 14: 00 Sod 3.375 gm/ Sodium Chloride IV Infused Q6H JOSE A Infusion Lisinopril 10 mg 06/11/18 09:00 Prinivil PO DAILY JOSE A Lorazepam 0.5 mg 06/11/18 14:04 06/12/18 17:03 Ativan Inj IVP 0.5 mg Q4H PRN Administration Methylprednisolone Sodium Succinate 125 mg 06/11/18 17:00 06/13/18 08:36 Solu-Medrol IVP 125 mg Q8HR [facility] Administration Methylprednisolone Sodium Succinate 62.5 mg 06/13/18 17:00 06/15/18 08:55 Solu-Medrol IVP 62.5 mg Q8HR [facility] Administration Metoprolol Tartrate 50 mg 06/11/18 09:00 Lopressor PO BID JOSE A Metoprolol Tartrate 50 mg 06/11/18 11:49 06/13/18 08:38 Lopressor PO 50 mg BIDWM [facility] Administration Metoprolol Tartrate 25 mg 06/13/18 12:14 06/13/18 12:24 Lopressor PO 06/13/18 12:15 25 mg O ONE Administration Metoprolol Tartrate 75 mg 06/13/18 17:30 06/16/18 08:18 Lopressor PO 75 mg BIDWM [facility] Administration Non-Formulary Medication 1,000 unit 06/11/18 21:00 Cholecalciferol (Vitamin D3) [Vitamin D3] PO [facility] Pharmacy Consult 1 each 06/10/18 23:12 06/11/18 12:00 Pharmacy Consult - Fall Risk 06/10/18 23:13 1 each ONE TIME ONE Administration Pharmacy Consult each 06/12/18 00:46 Pharmacy Consult - Fall Risk 06/12/18 00:47 ONE TIME ONE Phytonadione 0.5 mg 06/13/18 12:00 06/13/18 12:23 Vitamin K Oral Liq PO 06/13/18 12:01 0.5 mg O ONE Administration Potassium Chloride 40 meq 06/11/18 11:55 06/11/18 12:03 K-Dur 20 Meq Tablet PO 06/11/18 11:56 40 meq O ONE Administration Potassium Chloride 40 meq 06/12/18 11:21 06/12/18 15:39 K-Dur 20 Meq Tablet PO 06/12/18 11:22 40 meq ONCE ONE Administration Potassium Chloride 20 meq 06/12/18 12:00 06/14/18 13:12 K-Dur 20 Meq Tablet PO 20 meq TIDWM [facility] Administration Potassium Chloride 40 meq 06/13/18 10:29 06/13/18 11:20 K-Dur 20 Meq Tablet PO 06/13/18 10:30 40 meq O ONE Administration Potassium Chloride 20 meq 06/13/18 17:15 06/13/18 17:52 K-Dur 20 Meq Tablet PO 06/13/18 17:16 20 meq ONCE ONE Administration Potassium Chloride 20 meq 06/14/18 14:13 06/14/18 17:45 K-Dur 20 Meq Tablet PO 06/14/18 14:14 20 meq O ONE Administration Prednisone 40 mg 06/11/18 15:39 Deltasone 20 Mg PO 06/11/18 15:40 O ONE Prednisone 40 mg 06/12/18 08:00 Deltasone 20 Mg PO 06/16/18 07:59 WB [facility] Warfarin Sodium 2.5 mg 06/11/18 12:30 06/12/18 15:39 Coumadin PO 2.5 mg [id number] [facility] Administration Warfarin Sodium 5 mg 06/13/18 12:00 Coumadin PO [id number] [facility] Warfarin Sodium 1 each 06/11/18 11:45 06/11/18 12:04 Pharmacy Consult - Warfarin 06/11/18 11:46 1 each O ONE Administration Warfarin Sodium 0 06/11/18 12:00 Coumadin Protocol NOTE JOSE A - Urinary Catheter Management Urethral Cath placed during this visit: no Coude Cath placed during this visit: no Results 06/16/18 04:01 06/16/18 04:01 Cardiac Enzymes 06/16/18 Range/Units 04:01 AST 59 (17-59) U/L CBC 06/16/18 Range/Units 04:01 WBC 15.3 H (4.5-11.0) T/MM3 RBC 4.09 L (4.50-5.90) M/MM3 Hgb 12.8 L (13.5-17.5) GM/DL Hct 38.6 L (41-53) % Plt Count 200 (130-400) T/MM3 Neut # (Auto) Not performed Lymph # (Auto) Not performed [place] # (Auto) Not performed Eos # (Auto) Not performed Baso # (Auto) Not performed Comprehensive Metabolic Panel 06/16/18 Range/Units 04:01 Sodium 141 (136-146) MEQ/L Potassium 4.3 (3.6-5) MEQ/L Chloride 104 (98-107) MEQ/L Carbon Dioxide 29 (22-30) MEQ/L BUN 35.0 H (9-20) MG/DL Creatinine 0.8 (0.8-1.5) mg/dL Glucose 155 H (75-110) MG/DL Calcium 8.4 (8.4-10.2) MG/DL AST 59 (17-59) U/L ALT 126 H (1-50) U/L Alkaline Phosphatase 116 (38-126) U/L Total Protein 6.1 L (6.3-8.2) g/dL Albumin 3.0 L (3.5-5.0) g/dL Intake and Output 06/16/18 06/16/18 06/16/18 06:59 14:59 22:59 Intake Total 310 / 310 240 / 240 Output Total 470 / 470 1025 / 1025 450 / 450 Balance -470 / -470 -715 / -715 -210 / -210 Intake: IV 100 / 100 Ceftriaxone 1 g In Ns 100 ml @ 100 / 100 200 mls/hr IV Q24H [facility] Rx#: [id number] Oral 210 / 210 240 / 240 Output: Urine Amount (Catheter) 470 / 470 1025 / 1025 450 / 450 Other: Urine Appearance Clear Sediment Clear Urine Color Yellow Yellow Yellow Urine Odor Normal Stool Color Brown Brown Stool Consistency Soft Loose Size of Bowel Movement Moderate Moderate # Bowel Movements 1 Weight 109.1 kg Patient Weight 06/17/18 06:59 Weight 109.1 kg Assessment and Plan - Assessment and Plan (1) Sepsis Current visit: Yes Status: Acute (2) Paroxysmal A-fib Current visit: Yes Status: Chronic (3) HTN (hypertension) Current visit: Yes Status: Chronic (4) Pneumonia Current visit: Yes Status: Acute (5) Pulmonary edema Current visit: Yes Status: Acute (6) Mixed hyperlipidemia Current visit: Yes Status: Chronic (7) NSTEMI (non-ST elevated myocardial infarction) Current visit: Yes Status: Acute (8) Severe aortic stenosis Current visit: Yes Status: Acute (9) Supratherapeutic INR Current visit: Yes Status: Acute (10) CHF (congestive heart failure) Current visit: Yes Status: Acute (11) Coronary artery disease Current visit: Yes Status: Acute I have evaluated the patient and have determined this plan of care. I have reviewed existing records, EKG, lab, radiology, etc I agree with above. We will proceed with SIRISHA for evaluation of his aortic valve and if no contraindication we will proceed with DCCV to regain NSR - this will be performed likely tomorrow 8/7/18 in the afternoon. If we are able to regain NSR then he will need an antiarrhythmic to maintain NSR. Patient has a normal EF by 2 D-Echo We will keep patient strict NPO until we are able to proceed with the procedure. In an effort to improve HR we will add Diltiazem CD 180mg daily By physical exam today patient has only moderate aortic valve disease If however, the SIRISHA reveals severe aortic disease then he will need a Heart Cath to evaluate his coronary artery status before proceeding with valve repair. This has been discussed with the patient in detail and he and his daughter agree to the above plan. Physical exam this evening revealing improved lung sounds - we can change Lasix to 40mg IV daily and monitor response Hospital Course Summary Disclaimer: The visit summary below is not to be considered part of the above Progress Note.
--- NOTE | 2018-06-16 10:19 | Pharmacy Consult ---
Pharmacy Consult-Warfarin - Laboratory Information 06/14/18 06/14/18 06/14/18 05:00 05:00 05:00 Hgb 13.3 L Hct 40.2 L INR 4.37 H AST ALT Albumin 3.4 L 06/15/18 06/15/18 06/16/18 04:08 04:08 04:01 Hgb 12.9 L Hct 38.3 L INR 3.79 H 3.51 H AST ALT Albumin - Consult Information COUMADIN CONSULT (Recurring): Day 7 78 yr old male 6'2" 103.8 kg admitted for pneumonia. On warfarin at home for A- Fib. Home med dose of warfarin is 5 mg twice a week and 2.5 mg 5 x week. Patient is on Rocephin which can elevate the INR. Date INR Dose 06/10 2.81 Not taken 06/11 ---- 2.5 mg 06/12 4.50 Held 06/13 5.33 0.5 Vit K p.o. given 4.37 Held 06/15 3.70 Held 06/16 3.51 Hold today INR has decreased down to 3.51. I will continue to hold the warfarin until it drops back into the therapeutic range below 3.0. Thanks, Raúl Culp, Pharmacist
--- NOTE | 2018-06-16 11:28 | Progress Note ---
- Date 06/16/18 Subjective: F/U: Pneumonia, acute hypoxic respiratory failure, acute diastolic/valvular heart failure Improving. Breathing better, but still having cough/congestion. No pain with breathing. Mobilizing minimal sputum. Appetite fair. Bowels moving. Tolerating Larios. No f/c. Working with therapy to help strength-tolerating well. Slept poorly last night-hard to get comfortable in bed. Objective Vital signs: Temperature 97.9 F 06/16/18 07:00 Pulse Rate 92 06/16/18 07:48 Respiratory Rate 19 06/16/18 07:48 Blood Pressure 164/89 H 06/16/18 07:00 Pulse Oximetry 96 06/16/18 09:10 Rhythm: Atrial Fibrillation with Normal Ventricular Rate Height/Weight/BMI: Height 1.88 m Weight 109.1 kg Body Mass Index 29.3 - Constitutional Present: well nourished, well developed, average body habitus, cooperative - Routine HEENT Exam Head: Present: normocephalic, atraumatic Eye: Present: EOMI, PERRL ENT: Present: mucous membranes moist - Routine Respiratory Exam Present: decreased breath sounds, distant breath sounds, diminished air movement. Absent: rales, respiratory distress, rhonchi, wheezes, crackles - Routine Cardiovascular Exam Present: irregular rhythm, irregularly irregular - Routine Abdominal Exam Present: soft, normoactive bowel sounds, non distended, non tender. Absent: guarding - Routine Extremities Exam Present: edema (+1 BLE), pulses intact. Absent: cyanosis, clubbing - Routine Musculoskeletal Exam Musculoskeletal: Present: no clubbing or cyanosis - Routine Skin Exam Present: dry, warm - Routine Neurological Exam Present: alert, oriented X3, CN II-XII intact, moving all extremities, vision grossly intact, hearing grossly intact, normal speech. Absent: motor deficit, altered mental status - Routine Psychiatric Exam Present: normal affect, normal thought process, cooperative Results - Labs CBC & Chem 7: 06/16/18 04:01 06/16/18 04:01 Microbiology Results: Microbiology 06/11/18 17:51 Peripheral/Iv Start Blood Culture - Preliminary No Growth After 4 Days 06/11/18 18:03 Peripheral/Iv Start Blood Culture - Preliminary No Growth After 4 Days 06/11/18 09:26 Sputum, Expectorated Gram Stain - Final 06/11/18 09:26 Sputum, Expectorated Sputum Culture - Final Haemophilus influenzae Normal Respiratory Malini 06/11/18 17:27 Urine Legionella Urinary Antigen - Final 06/11/18 17:27 Urine Streptococcus pneumoniae Antigen (M - Final Assessment and Plan (1) Severe sepsis Current visit: Yes Status: Acute (2) Pneumonia Current visit: Yes Status: Acute Assessment and Plan: Impression Sepsis-severe 1. CAP 2. Leukocytosis, 3. Bandemia, 4. Tachycardia, 5. Tachypnea, 6. Lactic acidosis Community acquired pneumonia - Haemophilus influenza Acute hypoxic respiratory failure Hypokalemia (POA) Pulmonary edema Acute congestive heart failure-valvular Non-ST elevation MA - Type II MA Aortic stenosis - moderate severe Elevated LFTs Atrial fibrillation, chronic Anticoagulation on warfarin Hypertension Presbyesophagus GERD Plan Continue with ceftriaxone. Day 6 of antibiotics for Haemophilus influenza pneumonia. Prednisone at 60mg (Day #2). Lasix increased to 40mg IV q8 hours to help motivate fluid. Creatinine stable at 0.8. Metoprolol increase to 100mg BID by cardiology to help heart rate. Anticipate SIRISHA and left heart catheter in near future. A1c with slight elevation at 6.4%, C. diff PCR negative. Tolerating therapy to improve functional status. Likely need skilled care post discharge. INR improving but remains super-therapeutic at 3.51, warfarin remains on hold. Possible transfer to medical floor - would continue CCU care if SIRISHA planned in near future. Recheck CBC in am due to resolving sepsis and pneumonia. Will repeat BMP & Mg in am due to medication use. Recheck CXR to follow pneumonia/pulm edema. Case discussed with CCU nursing and pt's daughter. Time spent with pt care 25 minutes. DVT Prophylaxis: SCD's, Coumadin GI Prophylaxis: Omeprazole Resuscitation Status: Full Code - Time spent with patient Time with patient PN: 25 minutes - Physician Narrative Physician: Leo Scott MD Narrative: Date: 06/16/18 Time: 1124 Hospital Course Summary Disclaimer: The visit summary below is not to be considered part of the above Progress Note. Hospital Course: Impression Sepsis, sepsis 1. CAP 2. Leukocytosis, 3. Bandemia, 4. Tachycardia, 5. Tachypnea Community acquired pneumonia Hypoxia Requiring oxygen Hypokalemia- POA Elevated LFTs Tachycardia History of atrial fibrillation Anticoagulation on warfarin Hypertension presbyesophagus GERD Plan 06/11/18 Admit to inpatient status under the care of Dr. Urbina for sepsis and pneumonia. Will continue on IV Rocephin and IV Azithromycin for pulmonary coverage. Sputum cultures pending. will repeat a venous lactate as the last one did trend up Continue on scheduled DuoNeb breathing treatments 4 times a day. Currently on 2 liters of oxygen by nasal cannula Consultation placed to speech therapy given question for dysphagia. Recent Vomiting, hx of Presbyesophagus Replace oral potassium and monitor Home antihypertensives remain on hold at time of admission given sepsis This patient on cardiac telemetry. Given irregular heartbeat and known history of atrial fibrillation SCDs to bilateral lower extremity for DVT prophylaxis. Check CMP tomorrow morning to follow elevated LFTs Consultation with PT and OT, Given patient's weakness secondary to acute illness. Addendum: Progressive deterioration in respiratory status through the day prompted switching from ceftriaxone to Zosyn for broader coverage and anaerobic coverage. Later transferred to ICU and diuresis initiated due to concern that he was becoming volume overloaded. Echo ordered for a.m. 06/12/18 Converted from ceftriaxone to Zosyn yesterday evening for broader coverage and anaerobic coverage given known history of presbyesophagus and risk of aspiration. Azithromycin continued for atypical coverage. Respiratory viral panel negative, urine antigens pending as is sputum culture. Afebrile overnight, appears clinically improved this morning overall. Continue aggressive breathing treatments and Solu-Medrol for additional 24 hours after which will begin tapering. Discussed with RT-Acapella to be initiated. Volume overloaded with development of acute congestive heart failure and component of pulmonary edema following volume replacement yesterday; now known to have moderately severe aortic stenosis by echo this morning. Cardiology consulted. Continue diuresis initiated yesterday evening. Blood pressure improved from yesterday, no recurrent "spells". Ongoing potassium replacement. Resolution of abnormal liver enzymes. 06/13/18 Patient reports clinical improvement, afebrile, decreasing cough and improved exertional tolerance. Continue Zosyn; complete 3 days azithromycin today. Sputum culture/blood cultures pending. Chest x-ray in a.m. White count climbing but no sign of worsening infection; likely due to steroids. Begin titrating steroid dose; continue breathing treatments and Acapella with treatments. Diuresed well yesterday, now has net negative fluid balance compared to admission. Stable cardiac rhythm, persistent low-grade tachycardia, metoprolol dose increased by cardiology for improved rate control. INR remains elevated, low-dose vitamin K given to prevent further climb and anticipate stabilization as oral intake improves and following discontinuation of azithromycin. Mental status clearing, appears to in the evening-continue to monitor. Requires ongoing potassium supplementation-recheck potassium later today to determine if additional potassium needed. 06/14/18 Continued clinical improvement, partial clearing on chest x-ray. With identification of Haemophilus influenza will resume ceftriaxone and discontinue Zosyn. Continue to monitor leukocytosis with change in antibiotics and as steroids tapered. If doing well tomorrow will convert prednisone. Heart rate improving although tachycardic with minimal activity. Metoprolol increased yesterday BUN/creatinine up slightly today-Lasix decreased to daily. Potassium is stabilized, decrease potassium supplement in conjunction with decreased diuresis. Valvular heart disease present-aortic stenosis not adequately visualized on transthoracic study -anticipate SIRISHA in the near future with left heart catheter. Mental status significantly improved from first 2 days in the hospital. INR down slightly today but remains super-therapeutic, warfarin remains on hold. 06/15/18 Continued progress, day 5 of antibiotics for Haemophilus influenza pneumonia. Afebrile, white count improving as is oxygen demand. Convert to prednisone po. Continue diuresis with Lasix daily; anticipate SIRISHA and left heart catheter in near future. Heart rate relatively well controlled, intermittent tachycardia-primarily with activities. Blood pressure stable. Fasting blood sugars modestly elevated-A1c in a.m. Loose stools described today, C. difficile PCR will be checked. 06/16/18 Continue with ceftriaxone. Day 6 of antibiotics for Haemophilus influenza pneumonia. Prednisone at 60mg (Day #2). Lasix increased to 40mg IV q8 hours to help motivate fluid. Creatinine stable at 0.8. Metoprolol increase to 100mg BID by cardiology to help heart rate. Anticipate SIRISHA and left heart catheter in near future. A1c with slight elevation at 6.4%, C. diff PCR negative. Tolerating therapy to improve functional status. Likely need skilled care post discharge. INR improving but remains super-therapeutic at 3.51, warfarin remains on hold. Possible transfer to medical floor - would continue CCU care if SIRISHA planned in near future.
[2018-06-16] MEDS ORDERED: MENTHOL COUGH DROPS (RICOLA) MM PRN (11:40)
[2018-06-16] MEDS: CEFTRIAXONE 1 G in NS 100 ML IV SCH (14:07)
[2018-06-16] MEDS: GUAIFENESIN/D-METHORPHAN 600mg/30mg TABLET PO SCH ×2 (14:08→20:21)
[2018-06-16] MEDS: NS FLUSH BAG 500ml IV PRN (14:08)
[2018-06-16] MEDS ORDERED: FUROSEMIDE 40 MG/4 ML INJECTION IVP SCH (17:00)
[2018-06-16] MEDS: CITALOPRAM 20 MG TABLET PO SCH (20:21)
[2018-06-16] MEDS: EZETIMIBE 10 MG TABLET PO SCH (20:21)
[2018-06-16] MEDS: SIMVASTATIN 40 MG TABLET PO SCH (20:21)
[2018-06-16] MEDS: LATANOPROST 0.005% EYE DROPS 2.5ml EACH EYE SCH (20:22)
[2018-06-17] MEDS: SALINE FLUSH 10ml SYRINGE IVF PRN (04:27)
[2018-06-17] MEDS: OMEPRAZOLE 20 MG CAPSULE PO SCH ×2 (05:18→05:30)
[2018-06-17] MEDS: ALBUTEROL/IPRATROPIUM 2.5mg-0.5mg/3ml NEB AEROSOL SCH ×3 (06:46→18:52)
[2018-06-17] MEDS: AMLODIPINE 5 MG TABLET PO SCH (08:35)
[2018-06-17] MEDS: PredniSONE 20 MG TABLET PO SCH (08:35)
[2018-06-17] MEDS: LISINOPRIL 10 MG TABLET PO SCH (08:36)
[2018-06-17] MEDS: GUAIFENESIN/D-METHORPHAN 600mg/30mg TABLET PO SCH ×2 (08:37→21:01)
[2018-06-17] MEDS: FUROSEMIDE 40 MG/4 ML INJECTION IVP SCH (08:37)
--- NOTE | 2018-06-17 08:48 | XRay Report ---
INDICATION: F/U PROCEDURE: CHEST 2-VIEWS UPRIGHT (PA & LAT) Encounter: Initial COMPARISON: June 14, 2018 FINDINGS: Right PICC line remains in place. Bilateral airspace disease is not significantly changed. No pneumothorax or significant pleural effusion. Heart size and mediastinal contours are stable. Pulmonary vascular congestion is stable. Impression: Stable appearance of the chest. .
[2018-06-17] MEDS ORDERED: SALINE FLUSH 10ml SYRINGE ONE (09:10)
--- NOTE | 2018-06-17 13:46 | Cardiology Progress Note ---
<Willa Hartley - Last Filed: 06/18/18 06:28> Subjective Principal diagnosis: dyspnea Interval history: Anthony is seen in follow up of , A Fib with RVR. He denies chest pain, palpitations, dizziness or nausea. Verballizes understanding of SIRISHA and cardioversion planned for today and heart cath this next week. Patient states that he just wants to get better so he can go back home. Exam Vital signs: Temperature 97.4 F 06/17/18 11:00 Pulse Rate 88 06/17/18 12:00 Respiratory Rate 16 06/17/18 12:09 Blood Pressure 117/84 06/17/18 12:00 Pulse Oximetry 95 06/17/18 12:09 Inpatient Medications: Generic Name Dose Route Start Last Admin Trade Name Freq PRN Reason Stop Dose Admin Acetaminophen 650 mg 06/11/18 19:45 06/15/18 21:05 Tylenol PO 650 mg QID PRN Administration Discomfort Hydrocodone Bitart/Acetaminophen 1 tab 06/10/18 22:27 [place] 5/325 PO Q6H PRN Pain Albuterol Sulfate 5 mg 06/12/18 11:20 Proventil Neb (0.5%) AEROSOL Q2H PRN Albuterol/Ipratropium 3 ml 06/10/18 23:36 Duoneb AEROSOL Q4H PRN Albuterol/Ipratropium 3 ml 06/15/18 07:00 06/17/18 12:09 Duoneb AEROSOL 3 ml RTTID JOSE A Administration Amlodipine Besylate 5 mg 06/11/18 09:00 06/17/18 08:35 Norvasc PO 5 mg DAILY JOSE A Administration Cholecalciferol 1,000 unit 06/11/18 09:00 06/17/18 08:35 Vit. D-3 PO 1,000 unit DAILY JOSE A Administration Citalopram Hydrobromide 20 mg 06/11/18 21:00 06/16/18 20:21 Celexa PO 20 mg HS JOSE A Administration Diltiazem HCl 180 mg 06/17/18 09:00 06/17/18 08:37 Cardizem Cd 180 Mg PO 180 mg DAILY JOSE A Administration Ezetimibe 10 mg 06/11/18 21:00 06/16/18 20:21 Zetia PO 10 mg HS JOSE A Administration Furosemide 40 mg 06/17/18 09:00 06/17/18 08:37 Lasix 40 Mg/4 Ml IVP 40 mg DAILY JOSE A Administration Guaifenesin 400 mg 06/11/18 10:52 06/15/18 23:24 Robitussin Liq PO 200 mg Q6H PRN Administration Cough /Congestion Guaifenesin/Dextromethorphan 1 tab 06/16/18 11:40 06/17/18 08:37 Mucinex Dm PO 1 tab BID JOSE A Administration Ceftriaxone Sodium 1 g/ Sodium 100 mls @ 200 mls/hr 06/14/18 14:00 06/16/18 14:37 Chloride IV Infused Q24H [facility] Infusion Latanoprost 1 drops 06/11/18 21:00 06/16/18 20:22 Xalatan EACH EYE 1 drops HS [facility] Administration Lisinopril 10 mg 06/12/18 13:30 06/17/18 08:36 Prinivil PO 10 mg DAILY [facility] Administration Loperamide HCl 2 mg 06/15/18 11:42 06/15/18 12:19 Imodium PO 2 mg PRN PRN Administration Protocol Lorazepam 1 mg 06/12/18 18:05 Ativan Inj IVP Q4H PRN Menthol 1 lozenge 06/16/18 11:40 Ricola Sf MM PRN PRN Cough Metoprolol Tartrate 5 mg 06/11/18 23:09 06/13/18 16:05 Lopressor IVP 5 mg Q6H PRN Administration Metoprolol Tartrate 100 mg 06/16/18 17:30 06/17/18 08:35 Lopressor PO 100 mg BIDWM [facility] Administration Omeprazole 20 mg 06/11/18 06:30 06/17/18 05:30 Prilosec PO Not Given ACB [facility] Ondansetron HCl 4 mg 06/10/18 22:27 Zofran IVP Q6H PRN Nausea &/or vomiting Potassium Chloride 20 meq 06/15/18 08:00 06/17/18 08:36 K-Dur 20 Meq Tablet PO 20 meq WB [facility] Administration Prednisone 40 mg 06/18/18 08:00 Deltasone 20 Mg PO WB [facility] Senna/Docusate Sodium 1 tab 06/10/18 22:27 Senna Plus Tablet PO BID PRN Constipation Simvastatin 40 mg 06/11/18 21:00 06/16/18 20:21 Zocor PO 40 mg HS JOSE A Administration Sodium Chloride 10 - 80 ml 06/10/18 20:50 06/17/18 04:27 Iv Flush IVF 50 ml PRN PRN Administration Flushing Sodium Chloride 500 ml 06/12/18 20:08 06/16/18 14:08 Normal Saline IV 500 ml PRN PRN Administration Discontinued Medications Generic Name Dose Route Start Last Admin Trade Name Freq PRN Reason Stop Dose Admin Acetaminophen 325 - 650 mg 06/10/18 22:[address] Q5H PRN Pain Hydrocodone Bitart/Acetaminophen 1 tab 06/10/18 21:56 06/10/18 21:58 [place] 5/325 PO 06/10/18 21:57 1 tab O ONE Administration Albuterol Sulfate 2.5 mg 06/10/18 20:52 06/10/18 20:58 Proventil Neb (0.083%) AEROSOL 06/10/18 20:53 2.5 mg O ONE Administration Albuterol Sulfate 5 mg 06/10/18 23:52 Proventil Neb (0.5%) AEROSOL RTQID PRN Albuterol/Ipratropium 3 ml 06/11/18 07:00 06/11/18 08:57 Duoneb AEROSOL 3 ml RTBID JOSE A Administration Albuterol/Ipratropium 3 ml 06/11/18 11:00 06/14/18 19:01 Duoneb AEROSOL 3 ml RTQID JOSE A Administration Azithromycin 500 mg 06/10/18 21:47 06/10/18 21:55 Zithromax PO 06/10/18 21:48 Not Given O ONE Enoxaparin Sodium 40 mg 06/11/18 09:00 06/11/18 09:07 Lovenox SQ 40 mg DAILY JOSE A Administration Furosemide 40 mg 06/11/18 21:19 06/11/18 21:22 Lasix 40 Mg/4 Ml IVP 06/11/18 21:20 40 mg O ONE Administration Furosemide 40 mg 06/12/18 08:31 06/12/18 10:10 Lasix 40 Mg/4 Ml IVP 06/12/18 08:32 40 mg ONE TIME ONE Administration Furosemide 40 mg 06/12/18 17:00 06/14/18 20:58 Lasix 40 Mg/4 Ml IVP Not Given Q8HR JOSE A Furosemide 40 mg 06/14/18 21:00 Lasix 40 Mg/4 Ml IVP Q12HR JOSE A Furosemide 40 mg 06/15/18 09:00 06/16/18 08:16 Lasix 40 Mg/4 Ml IVP 40 mg DAILY JOSE A Administration Furosemide 40 mg 06/16/18 17:00 06/16/18 17:03 Lasix 40 Mg/4 Ml IVP 40 mg Q8HR JOSE A Administration Haloperidol Lactate 1 mg 06/12/18 17:24 06/12/18 17:15 Haldol IVP 06/13/18 00:00 1 mg Q4H PRN Administration Sodium Chloride 1,000 mls @ 999.9 mls/hr 06/10/18 20:51 06/10/18 21:55 Normal Saline IV 06/10/18 21:50 Infused .Q1H ONE Infusion Azithromycin 500 mg/ Sodium 250 mls @ 167 mls/hr 06/10/18 21:49 06/10/18 21: 55 Chloride IV 06/10/18 23:18 167 mls/hr O ONE Administration Sodium Chloride 1,000 mls @ 100 mls/hr 06/10/18 22:27 06/11/18 21:03 Normal Saline IV Infused .Q10H JOSE A Infusion Azithromycin 500 mg/ Sodium 250 mls @ 167 mls/hr 06/11/18 22:00 06/13/18 00: 00 Chloride IV 06/13/18 21:59 Infused Q24H JOSE A Infusion Ceftriaxone Sodium 1 g/ Sodium 100 mls @ 200 mls/hr 06/11/18 22:00 Chloride IV Q24H JOSE A Sodium Chloride 1,000 mls @ 250 mls/hr 06/11/18 14:00 06/11/18 19:34 Normal Saline IV Not Given .Q4H JOSE A Piperacillin Sod/Tazobactam 100 mls @ 200 mls/hr 06/11/18 19:45 06/14/18 14: 00 Sod 3.375 gm/ Sodium Chloride IV Infused Q6H JO[facility] A Infusion Lisinopril 10 mg 06/11/18 09:00 Prinivil PO DAILY JOSE A Lorazepam 0.5 mg 06/11/18 14:04 06/12/18 17:03 Ativan Inj IVP 0.5 mg Q4H PRN Administration Methylprednisolone Sodium Succinate 125 mg 06/11/18 17:00 06/13/18 08:36 Solu-Medrol IVP 125 mg Q8HR [facility] Administration Methylprednisolone Sodium Succinate 62.5 mg 06/13/18 17:00 06/15/18 08:55 Solu-Medrol IVP 62.5 mg Q8HR [facility] Administration Metoprolol Tartrate 50 mg 06/11/18 09:00 Lopressor PO BID JOSE A Metoprolol Tartrate 50 mg 06/11/18 11:49 06/13/18 08:38 Lopressor PO 50 mg BIDWM [facility] Administration Metoprolol Tartrate 25 mg 06/13/18 12:14 06/13/18 12:24 Lopressor PO 06/13/18 12:15 25 mg O ONE Administration Metoprolol Tartrate 75 mg 06/13/18 17:30 06/16/18 08:18 Lopressor PO 75 mg BIDWM [facility] Administration Non-Formulary Medication 1,000 unit 06/11/18 21:00 Cholecalciferol (Vitamin D3) [Vitamin D3] PO [facility] Pharmacy Consult 1 each 06/10/18 23:12 06/11/18 12:00 Pharmacy Consult - Fall Risk 06/10/18 23:13 1 each ONE TIME ONE Administration Pharmacy Consult each 06/12/18 00:46 Pharmacy Consult - Fall Risk 06/12/18 00:47 ONE TIME ONE Phytonadione 0.5 mg 06/13/18 12:00 06/13/18 12:23 Vitamin K Oral Liq PO 06/13/18 12:01 0.5 mg O ONE Administration Potassium Chloride 40 meq 06/11/18 11:55 06/11/18 12:03 K-Dur 20 Meq Tablet PO 06/11/18 11:56 40 meq O ONE Administration Potassium Chloride 40 meq 06/12/18 11:21 06/12/18 15:39 K-Dur 20 Meq Tablet PO 06/12/18 11:22 40 meq ONCE ONE Administration Potassium Chloride 20 meq 06/12/18 12:00 06/14/18 13:12 K-Dur 20 Meq Tablet PO 20 meq TIDWM [facility] Administration Potassium Chloride 40 meq 06/13/18 10:29 06/13/18 11:20 K-Dur 20 Meq Tablet PO 06/13/18 10:30 40 meq O ONE Administration Potassium Chloride 20 meq 06/13/18 17:15 06/13/18 17:52 K-Dur 20 Meq Tablet PO 06/13/18 17:16 20 meq ONCE ONE Administration Potassium Chloride 20 meq 06/14/18 14:13 06/14/18 17:45 K-Dur 20 Meq Tablet PO 06/14/18 14:14 20 meq O ONE Administration Prednisone 40 mg 06/11/18 15:39 Deltasone 20 Mg PO 06/11/18 15:40 O ONE Prednisone 40 mg 06/12/18 08:00 Deltasone 20 Mg PO 06/16/18 07:59 WB JOSE A Prednisone 60 mg 06/15/18 14:23 06/17/18 08:35 Deltasone 20 Mg PO 60 mg WB JOSE A Administration Warfarin Sodium 2.5 mg 06/11/18 12:30 06/12/18 15:39 Coumadin PO 2.5 mg [id number] JOSE A Administration Warfarin Sodium 5 mg 06/13/18 12:00 Coumadin PO [email or web address] JOSE A Warfarin Sodium 1 each 06/11/18 11:45 06/11/18 12:04 Pharmacy Consult - Warfarin 06/11/18 11:46 1 each O ONE Administration Warfarin Sodium 0 06/11/18 12:00 Coumadin Protocol NOTE JOSE A - Constitutional no acute distress - Routine HEENT Exam Head: Present: normocephalic, atraumatic Eye: Present: PERRL ENT: Present: mucous membranes moist - Routine Neck Exam Absent: JVD, carotid bruit - Urinary Catheter Management Urethral Cath placed during this visit: yes, but has since been removed by the nurse Urethral indwelling: Yes Insertion date: 06/11/18 Insertion time: 17:25 Removal date: 06/12/18 Removal time: 02:10 Coude Cath placed during this visit: yes Insertion date: 06/12/18 Insertion time: 02:15 Results 06/18/18 03:55 06/18/18 03:55 CBC 06/17/18 Range/Units 04:24 WBC 16.2 H (4.5-11.0) T/MM3 RBC 4.21 L (4.50-5.90) M/MM3 Hgb 13.2 L (13.5-17.5) GM/DL Hct 39.6 L (41-53) % Plt Count 201 (130-400) T/MM3 Neut # (Auto) Not performed Lymph # (Auto) Not performed Citrus # (Auto) Not performed Eos # (Auto) Not performed Baso # (Auto) Not performed Comprehensive Metabolic Panel 06/17/18 Range/Units 04:24 Sodium 138 (136-146) MEQ/L Potassium 4.2 (3.6-5) MEQ/L Chloride 102 (98-107) MEQ/L Carbon Dioxide 29 (22-30) MEQ/L BUN 36.0 H (9-20) MG/DL Creatinine 0.8 (0.8-1.5) mg/dL Glucose 120 H (75-110) MG/DL Calcium 8.3 L (8.4-10.2) MG/DL Intake and Output 06/16/18 06/17/18 06/17/18 22:59 06:59 14:59 Intake Total 1080 / 1080 360 / 360 Output Total 1025 / 1025 745 / 745 2845 / 2845 Balance 55 / 55 -385 / -385 -2845 / -2845 Intake: Oral 1080 / 1080 360 / 360 Output: Urine Amount (Catheter) 1025 / 1025 745 / 745 2845 / 2845 Other: Urine Appearance Clear Clear Urine Color Yellow Yellow Stool Color Brown Brown Stool Consistency Loose Liquid Size of Bowel Movement Moderate Small Weight 111.9 kg Patient Weight 06/18/18 06:59 Weight 111.9 kg Assessment and Plan - Assessment and Plan (1) Sepsis Status: Acute (2) Paroxysmal A-fib Status: Chronic (3) HTN (hypertension) Status: Chronic (4) Pneumonia Status: Acute (5) Pulmonary edema Status: Acute (6) Mixed hyperlipidemia Status: Chronic (7) NSTEMI (non-ST elevated myocardial infarction) Status: Acute (8) Severe aortic stenosis Status: Acute (9) Supratherapeutic INR Status: Acute (10) CHF (congestive heart failure) Status: Acute (11) Coronary artery disease Status: Acute - Assessment and Plan 06/16/18 We will proceed with SIRISHA for evaluation of his aortic valve and if no contraindication we will proceed with DCCV to regain NSR - this will be performed likely tomorrow 06/17/18 in the afternoon. If we are able to regain NSR then he will need an antiarrhythmic to maintain NSR. Patient has a normal EF by 2 D-Echo We will keep patient strict NPO until we are able to proceed with the procedure. In an effort to improve HR we will add Diltiazem CD 180mg daily By physical exam today patient has only moderate aortic valve disease If however, the SIRISHA reveals severe aortic disease then he will need a Heart Cath to evaluate his coronary artery status before proceeding with valve repair. This has been discussed with the patient in detail and he and his daughter agree to the above plan. Physical exam this evening revealing improved lung sounds - we can change Lasix to 40mg IV daily and monitor response 06/17/18 Pt underwent SIRISHA, no vegetation seen, DCCV was completed with 2 shocks. Pt failed to convert to SR. Initiated an Amiodarone gtt, if he does not convert chemically will DCCV again tomorrow. Hospital Course Summary Disclaimer: The visit summary below is not to be considered part of the above Progress Note. Hospital Course: Impression Sepsis, sepsis 1. CAP 2. Leukocytosis, 3. Bandemia, 4. Tachycardia, 5. Tachypnea Community acquired pneumonia Hypoxia Requiring oxygen Hypokalemia- POA Elevated LFTs Tachycardia History of atrial fibrillation Anticoagulation on warfarin Hypertension presbyesophagus GERD Plan 06/11/18 Admit to inpatient status under the care of Dr. Urbina for sepsis and pneumonia. Will continue on IV Rocephin and IV Azithromycin for pulmonary coverage. Sputum cultures pending. will repeat a venous lactate as the last one did trend up Continue on scheduled DuoNeb breathing treatments 4 times a day. Currently on 2 liters of oxygen by nasal cannula Consultation placed to speech therapy given question for dysphagia. Recent Vomiting, hx of Presbyesophagus Replace oral potassium and monitor Home antihypertensives remain on hold at time of admission given sepsis This patient on cardiac telemetry. Given irregular heartbeat and known history of atrial fibrillation SCDs to bilateral lower extremity for DVT prophylaxis. Check CMP tomorrow morning to follow elevated LFTs Consultation with PT and OT, Given patient's weakness secondary to acute illness. Addendum: Progressive deterioration in respiratory status through the day prompted switching from ceftriaxone to Zosyn for broader coverage and anaerobic coverage. Later transferred to ICU and diuresis initiated due to concern that he was becoming volume overloaded. Echo ordered for a.m. 06/12/18 Converted from ceftriaxone to Zosyn yesterday evening for broader coverage and anaerobic coverage given known history of presbyesophagus and risk of aspiration. Azithromycin continued for atypical coverage. Respiratory viral panel negative, urine antigens pending as is sputum culture. Afebrile overnight, appears clinically improved this morning overall. Continue aggressive breathing treatments and Solu-Medrol for additional 24 hours after which will begin tapering. Discussed with RT-Acapella to be initiated. Volume overloaded with development of acute congestive heart failure and component of pulmonary edema following volume replacement yesterday; now known to have moderately severe aortic stenosis by echo this morning. Cardiology consulted. Continue diuresis initiated yesterday evening. Blood pressure improved from yesterday, no recurrent "spells". Ongoing potassium replacement. Resolution of abnormal liver enzymes. 06/13/18 Patient reports clinical improvement, afebrile, decreasing cough and improved exertional tolerance. Continue Zosyn; complete 3 days azithromycin today. Sputum culture/blood cultures pending. Chest x-ray in a.m. White count climbing but no sign of worsening infection; likely due to steroids. Begin titrating steroid dose; continue breathing treatments and Acapella with treatments. Diuresed well yesterday, now has net negative fluid balance compared to admission. Stable cardiac rhythm, persistent low-grade tachycardia, metoprolol dose increased by cardiology for improved rate control. INR remains elevated, low-dose vitamin K given to prevent further climb and anticipate stabilization as oral intake improves and following discontinuation of azithromycin. Mental status clearing, appears to in the evening-continue to monitor. Requires ongoing potassium supplementation-recheck potassium later today to determine if additional potassium needed. 06/14/18 Continued clinical improvement, partial clearing on chest x-ray. With identification of Haemophilus influenza will resume ceftriaxone and discontinue Zosyn. Continue to monitor leukocytosis with change in antibiotics and as steroids tapered. If doing well tomorrow will convert prednisone. Heart rate improving although tachycardic with minimal activity. Metoprolol increased yesterday BUN/creatinine up slightly today-Lasix decreased to daily. Potassium is stabilized, decrease potassium supplement in conjunction with decreased diuresis. Valvular heart disease present-aortic stenosis not adequately visualized on transthoracic study -anticipate SIRISHA in the near future with left heart catheter. Mental status significantly improved from first 2 days in the hospital. INR down slightly today but remains super-therapeutic, warfarin remains on hold. 06/15/18 Continued progress, day 5 of antibiotics for Haemophilus influenza pneumonia. Afebrile, white count improving as is oxygen demand. Convert to prednisone po. Continue diuresis with Lasix daily; anticipate SIRISHA and left heart catheter in near future. Heart rate relatively well controlled, intermittent tachycardia-primarily with activities. Blood pressure stable. Fasting blood sugars modestly elevated-A1c in a.m. Loose stools described today, C. difficile PCR will be checked. <Braden Lund - Last Filed: 06/26/18 13:47> Exam Vital signs: Temperature 97.2 F 06/20/18 13:58 Pulse Rate 76 06/20/18 13:58 Respiratory Rate 22 06/20/18 13:58 Blood Pressure 105/62 06/20/18 13:58 Pulse Oximetry 97 06/20/18 13:58 Inpatient Medications: Discontinued Medications Generic Name Dose Route Start Last Admin Trade Name Freq PRN Reason Stop Dose Admin Acetaminophen 325 - 650 mg 06/10/18 22:[address] Q5H PRN Pain Acetaminophen 650 mg 06/11/18 19:45 06/15/18 21:05 Tylenol PO 650 mg QID PRN Administration Discomfort Acetaminophen 325 - 650 mg 06/17/18 15:20 Tylenol PO Q5H PRN Discomfort Acetaminophen 325 - 650 mg 06/18/18 14:28 Tylenol PO Q5H PRN Discomfort Hydrocodone Bitart/Acetaminophen 1 tab 06/10/18 21:56 06/10/18 21:58 [place] 5/325 PO 06/10/18 21:57 1 tab O ONE Administration Hydrocodone Bitart/Acetaminophen 1 tab 06/10/18 22:27 [place] 5/325 PO Q6H PRN Pain Al Hydroxide/Mg Hydroxide 30 ml 06/17/18 15:20 Maalox Plus PO Q3-4HR PRN Indigestion Al Hydroxide/Mg Hydroxide 30 ml 06/18/18 14:28 Maalox Plus PO Q3-4HR PRN Indigestion Albuterol Sulfate 2.5 mg 06/10/18 20:52 06/10/18 20:58 Proventil Neb (0.083%) AEROSOL 06/10/18 20:53 2.5 mg O ONE Administration Albuterol Sulfate 5 mg 06/10/18 23:52 Proventil Neb (0.5%) AEROSOL RTQID PRN Albuterol Sulfate 5 mg 06/12/18 11:20 Proventil Neb (0.5%) AEROSOL Q2H PRN Albuterol/Ipratropium 3 ml 06/11/18 07:00 06/11/18 08:57 Duoneb AEROSOL 3 ml RTBID JOSE A Administration Albuterol/Ipratropium 3 ml 06/10/18 23:36 06/19/18 07:19 Duoneb AEROSOL 3 ml Q4H PRN Administration Albuterol/Ipratropium 3 ml 06/11/18 11:00 06/14/18 19:01 Duoneb AEROSOL 3 ml RTQID JOSE A Administration Albuterol/Ipratropium 3 ml 06/15/18 07:00 06/18/18 20:17 Duoneb AEROSOL 3 ml RTTID JOSE A Administration Albuterol/Ipratropium 3 ml 06/19/18 19:00 06/20/18 06:49 Duoneb AEROSOL 3 ml RTBID JOSE A Administration Albuterol/Ipratropium 3 ml 06/19/18 19:00 06/19/18 19:48 Duoneb AEROSOL Not Given RTBID JOSE A Amlodipine Besylate 5 mg 06/11/18 09:00 06/17/18 08:35 Norvasc PO 5 mg DAILY JOSE A Administration Azithromycin 500 mg 06/10/18 21:47 06/10/18 21:55 Zithromax PO 06/10/18 21:48 Not Given O ONE Bisacodyl 10 mg 06/17/18 15:20 Dulcolax RECTALLY DAILY PRN Constipation Bisacodyl 10 mg 06/18/18 14:28 Dulcolax RECTALLY DAILY PRN Constipation Cholecalciferol 1,000 unit 06/11/18 09:00 06/20/18 09:14 Vit. D-3 PO 1,000 unit DAILY JOSE A Administration Citalopram Hydrobromide 20 mg 06/11/18 21:00 06/19/18 21:06 Celexa PO 20 mg HS JOSE A Administration Diltiazem HCl 180 mg 06/17/18 09:00 06/17/18 08:37 Cardizem Cd 180 Mg PO 180 mg DAILY JOSE A Administration Ezetimibe 10 mg 06/11/18 21:00 06/19/18 21:06 Zetia PO 10 mg HS JOSE A Administration Enoxaparin Sodium 40 mg 06/11/18 09:00 06/11/18 09:07 Lovenox SQ 40 mg DAILY JOSE A Administration Furosemide 40 mg 06/11/18 21:19 06/11/18 21:22 Lasix 40 Mg/4 Ml IVP 06/11/18 21:20 40 mg O ONE Administration Furosemide 40 mg 06/12/18 08:31 06/12/18 10:10 Lasix 40 Mg/4 Ml IVP 06/12/18 08:32 40 mg ONE TIME ONE Administration Furosemide 40 mg 06/12/18 17:00 06/14/18 20:58 Lasix 40 Mg/4 Ml IVP Not Given Q8HR JOSE A Furosemide 40 mg 06/14/18 21:00 Lasix 40 Mg/4 Ml IVP Q12HR JOSE A Furosemide 40 mg 06/15/18 09:00 06/16/18 08:16 Lasix 40 Mg/4 Ml IVP 40 mg DAILY JOSE A Administration Furosemide 40 mg 06/16/18 17:00 06/16/18 17:03 Lasix 40 Mg/4 Ml IVP 40 mg Q8HR JOSE A Administration Furosemide 40 mg 06/17/18 09:00 06/18/18 08:27 Lasix 40 Mg/4 Ml IVP 40 mg DAILY JOSE A Administration Furosemide 40 mg 06/19/18 09:00 06/20/18 09:14 Lasix 40 Mg Tab PO 40 mg DAILY JOSE A Administration Guaifenesin 400 mg 06/11/18 10:52 06/15/18 23:24 Robitussin Liq PO 200 mg Q6H PRN Administration Cough /Congestion Guaifenesin/Dextromethorphan 1 tab 06/16/18 11:40 06/20/18 09:17 Mucinex Dm PO 1 tab BID JOSE A Administration Haloperidol Lactate 1 mg 06/12/18 17:24 06/12/18 17:15 Haldol IVP 06/13/18 00:00 1 mg Q4H PRN Administration Sodium Chloride 1,000 mls @ 999.9 mls/hr 06/10/18 20:51 06/10/18 21:55 Normal Saline IV 06/10/18 21:50 Infused .Q1H ONE Infusion Azithromycin 500 mg/ Sodium 250 mls @ 167 mls/hr 06/10/18 21:49 06/10/18 21: 55 Chloride IV 06/10/18 23:18 167 mls/hr O ONE Administration Sodium Chloride 1,000 mls @ 100 mls/hr 06/10/18 22:27 06/11/18 21:03 Normal Saline IV Infused .Q10H JOSE A Infusion Azithromycin 500 mg/ Sodium 250 mls @ 167 mls/hr 06/11/18 22:00 06/13/18 00: 00 Chloride IV 06/13/18 21:59 Infused Q24H JOSE A Infusion Ceftriaxone Sodium 1 g/ Sodium 100 mls @ 200 mls/hr 06/11/18 22:00 Chloride IV Q24H JOSE A Sodium Chloride 1,000 mls @ 250 mls/hr 06/11/18 14:00 06/11/18 19:34 Normal Saline IV Not Given .Q4H JOSE A Piperacillin Sod/Tazobactam 100 mls @ 200 mls/hr 06/11/18 19:45 06/14/18 14: 00 Sod 3.375 gm/ Sodium Chloride IV Infused Q6H JOSE A Infusion Ceftriaxone Sodium 1 g/ Sodium 100 mls @ 200 mls/hr 06/14/18 14:00 06/19/18 15:10 Chloride IV Infused Q24H JOSE A Infusion Amiodarone HCl 150 mg/ Sodium 103 mls @ 618 mls/hr 06/17/18 15:26 06/17/18 16 :08 Chloride IV 06/17/18 15:35 Infused O ONE Infusion Amiodarone HCl 450 mg/ Sodium 250 mls @ 33.33 mls/hr 06/17/18 15:28 06/17/18 22:28 Chloride IV 06/17/18 21:28 Infused .Q7H31M JOSE A Infusion 1 MG/MIN Amiodarone HCl 900 mg/ Sodium 500 mls @ 16.66 mls/hr 06/17/18 21:30 06/18/18 14:00 Chloride IV 0.49 mg/min .Q24H JOSE A 16.66 mls/hr Infusion 0.5 MG/MIN Sodium Chloride 250 mls @ 500 mls/hr 06/18/18 18:14 06/18/18 19:00 Normal Saline IV 06/18/18 18:43 Infused .Q30M ONE Infusion Ceftriaxone Sodium 1 g/ Sodium 100 mls @ 200 mls/hr 06/20/18 11:00 06/20/18 11:46 Chloride IV Infused Q24H JOSE A Infusion Latanoprost 1 drops 06/11/18 21:00 06/19/18 21:07 Xalatan EACH EYE 1 drops HS JOSE A Administration Lisinopril 10 mg 06/11/18 09:00 Prinivil PO DAILY JOSE A Lisinopril 10 mg 06/12/18 13:30 06/20/18 09:14 Prinivil PO 10 mg DAILY JOSE A Administration Loperamide HCl 2 mg 06/15/18 11:42 06/15/18 12:19 Imodium PO 2 mg PRN PRN Administration Protocol Lorazepam 0.5 mg 06/11/18 14:04 06/12/18 17:03 Ativan Inj IVP 0.5 mg Q4H PRN Administration Lorazepam 1 mg 06/12/18 18:05 Ativan Inj IVP Q4H PRN Lorazepam 0.5 - 1 mg 06/17/18 15:20 Ativan PO Q4H PRN Lorazepam 0.5 - 1 mg 06/17/18 15:20 Ativan Inj IVP Q4H PRN Lorazepam 0.5 - 1 mg 06/18/18 14:28 Ativan Inj IVP Q4H PRN Lorazepam 0.5 - 1 mg 06/18/18 14:28 Ativan PO Q4H PRN Magnesium Hydroxide 30 ml 06/17/18 15:20 Mom PO DAILY PRN Constipation Magnesium Hydroxide 30 ml 06/18/18 14:28 Mom PO DAILY PRN Constipation Menthol 1 lozenge 06/16/18 11:40 Ricola Sf MM PRN PRN Cough Methylprednisolone Sodium Succinate 125 mg 06/11/18 17:00 06/13/18 08:36 Solu-Medrol IVP 125 mg Q8HR [facility] Administration Methylprednisolone Sodium Succinate 62.5 mg 06/13/18 17:00 06/15/18 08:55 Solu-Medrol IVP 62.5 mg Q8HR JOSE A Administration Metoclopramide HCl 5 - 10 mg 06/17/18 15:20 Reglan IVP Q6H PRN Nausea &/or vomiting Metoprolol Tartrate 50 mg 06/11/18 09:00 Lopressor PO BID JOSE A Metoprolol Tartrate 50 mg 06/11/18 11:49 06/13/18 08:38 Lopressor PO 50 mg BIDWM JOSE A Administration Metoprolol Tartrate 5 mg 06/11/18 23:09 06/13/18 16:05 Lopressor IVP 5 mg Q6H PRN Administration Metoprolol Tartrate 25 mg 06/13/18 12:14 06/13/18 12:24 Lopressor PO 06/13/18 12:15 25 mg O ONE Administration Metoprolol Tartrate 75 mg 06/13/18 17:30 06/16/18 08:18 Lopressor PO 75 mg BIDWM JOSE A Administration Metoprolol Tartrate 100 mg 06/16/18 17:30 06/20/18 09:17 Lopressor PO 100 mg BIDWM JOSE A Administration Nitroglycerin 0.4 mg 06/17/18 15:20 Nitrostat SL Q5MIN3 PRN Chest pain Nitroglycerin 0.4 mg 06/18/18 14:28 Nitrostat SL Q5MIN3 PRN Chest pain Non-Formulary Medication 1,000 unit 06/11/18 21:00 Cholecalciferol (Vitamin D3) [Vitamin D3] PO HS JOSE A Omeprazole 20 mg 06/11/18 06:30 06/20/18 06:31 Prilosec PO 20 mg ACB JOSE A Administration Ondansetron HCl 4 mg 06/10/18 22:27 Zofran IVP Q6H PRN Nausea &/or vomiting Pharmacy Consult 1 each 06/10/18 23:12 06/11/18 12:00 Pharmacy Consult - Fall Risk 06/10/18 23:13 1 each ONE TIME ONE Administration Pharmacy Consult each 06/12/18 00:46 Pharmacy Consult - Fall Risk 06/12/18 00:47 ONE TIME ONE Phytonadione 0.5 mg 06/13/18 12:00 06/13/18 12:23 Vitamin K Oral Liq PO 06/13/18 12:01 0.5 mg O ONE Administration Potassium Chloride 40 meq 06/11/18 11:55 06/11/18 12:03 K-Dur 20 Meq Tablet PO 06/11/18 11:56 40 meq O ONE Administration Potassium Chloride 40 meq 06/12/18 11:21 06/12/18 15:39 K-Dur 20 Meq Tablet PO 06/12/18 11:22 40 meq ONCE ONE Administration Potassium Chloride 20 meq 06/12/18 12:00 06/14/18 13:12 K-Dur 20 Meq Tablet PO 20 meq TIDWM JOSE A Administration Potassium Chloride 40 meq 06/13/18 10:29 06/13/18 11:20 K-Dur 20 Meq Tablet PO 06/13/18 10:30 40 meq O ONE Administration Potassium Chloride 20 meq 06/13/18 17:15 06/13/18 17:52 K-Dur 20 Meq Tablet PO 06/13/18 17:16 20 meq ONCE ONE Administration Potassium Chloride 20 meq 06/15/18 08:00 06/20/18 09:14 K-Dur 20 Meq Tablet PO 20 meq WB JOSE A Administration Potassium Chloride 20 meq 06/14/18 14:13 06/14/18 17:45 K-Dur 20 Meq Tablet PO 06/14/18 14:14 20 meq O ONE Administration Prednisone 40 mg 06/11/18 15:39 Deltasone 20 Mg PO 06/11/18 15:40 O ONE Prednisone 40 mg 06/12/18 08:00 Deltasone 20 Mg PO 06/16/18 07:59 WB JOSE A Prednisone 60 mg 06/15/18 14:23 06/17/18 08:35 Deltasone 20 Mg PO 60 mg WB JOSE A Administration Prednisone 40 mg 06/18/18 08:00 06/19/18 09:18 Deltasone 20 Mg PO 40 mg WB JOSE A Administration Prednisone 20 mg 06/20/18 08:00 06/20/18 09:14 Deltasone 20 Mg PO 20 mg WB JOSE A Administration Promethazine HCl 12.5 - 25 mg 06/17/18 15:20 Phenergan Inj IVP Q6H PRN Nausea Promethazine HCl 12.5 - 25 mg 06/18/18 14:28 Phenergan Inj IVP Q6H PRN Nausea Senna/Docusate Sodium 1 tab 06/10/18 22:27 06/19/18 09:19 Senna Plus Tablet PO 1 tab BID PRN Administration Constipation Simvastatin 40 mg 06/11/18 21:00 06/19/18 21:06 Zocor PO 40 mg HS JOSE A Administration Sodium Chloride 10 - 80 ml 06/10/18 20:50 06/20/18 11:16 Iv Flush IVF 10 ml PRN PRN Administration Flushing Sodium Chloride 500 ml 06/12/18 20:08 06/16/18 14:08 Normal Saline IV 500 ml PRN PRN Administration Warfarin Sodium 2.5 mg 06/11/18 12:30 06/12/18 15:39 Coumadin PO 2.5 mg [id number]@1200 [facility] Administration Warfarin Sodium 5 mg 06/13/18 12:00 Coumadin PO MoFr@1200 [facility] Warfarin Sodium 1 each 06/11/18 11:45 06/11/18 12:04 Pharmacy Consult - Warfarin 06/11/18 11:46 1 each O ONE Administration Warfarin Sodium 0 06/11/18 12:00 Coumadin Protocol NOTE [facility] Warfarin Sodium 2.5 mg 06/18/18 19:36 06/18/18 21:13 Coumadin PO 06/18/18 19:37 2.5 mg O ONE Administration Warfarin Sodium 4 mg 06/19/18 12:30 06/19/18 13:10 Coumadin PO 06/19/18 12:31 4 mg O ONE Administration Warfarin Sodium 5 mg 06/20/18 12:00 06/20/18 11:16 Coumadin PO 06/20/18 12:01 5 mg O ONE Administration - Urinary Catheter Management Urethral Cath placed during this visit: no Coude Cath placed during this visit: no Results 06/20/18 04:13 06/20/18 04:13 Assessment and Plan - Assessment and Plan (1) Sepsis Status: Acute (2) Paroxysmal A-fib Status: Chronic (3) HTN (hypertension) Status: Chronic (4) Pneumonia Status: Acute (5) Pulmonary edema Status: Acute (6) Mixed hyperlipidemia Status: Chronic (7) NSTEMI (non-ST elevated myocardial infarction) Status: Acute (8) Severe aortic stenosis Status: Acute (9) Supratherapeutic INR Status: Acute (10) CHF (congestive heart failure) Status: Acute (11) Coronary artery disease Status: Acute - Attestation Attestation Narrative: 06/26/18 13:47 Recommendation After examining the patient I agree with the above assessment. I am involved in the formulation of the patient's plan of care. Hospital Course Summary Disclaimer: The visit summary below is not to be considered part of the above Progress Note.
[2018-06-17] MEDS: CEFTRIAXONE 1 G in NS 100 ML IV SCH (14:53)
[2018-06-17] MEDS ORDERED: ACETAMINOPHEN 500 MG TABLET PO PRN (15:20)
[2018-06-17] MEDS ORDERED: MAG-AL + SIM ORAL LIQUID 30ml PO PRN (15:20)
[2018-06-17] MEDS ORDERED: LORazepam 1 MG TABLET PO PRN (15:20)
[2018-06-17] MEDS ORDERED: METOCLOPRAMIDE 10mg/2ml INJECTION IVP PRN (15:20)
[2018-06-17] MEDS ORDERED: BISACODYL 10 MG SUPPOSITORY RECTALLY PRN (15:20)
[2018-06-17] MEDS ORDERED: PROMETHAZINE 25 MG INJECTION IVP PRN (15:20)
[2018-06-17] MEDS ORDERED: NITROGLYCERIN 0.4 MG SUBLINGUAL TABLET SL PRN (15:20)
[2018-06-17] MEDS ORDERED: AMIODARONE 150 MG in NS 100 ML IV ONE (15:26)
[2018-06-17] MEDS ORDERED: AMIODARONE 450 MG in NS 250ml 250 ML IV SCH (15:28)
--- NOTE | 2018-06-17 18:01 | Transesophageal Echocardiogram ---
. TRANSESOPHAGEAL ECHOCARDIOGRAM/CARDIOVERSION DATE OF PROCEDURE 06/17/2018 The patient is a 78-year-old gentleman with atrial fibrillation and aortic stenosis and was referred for further evaluation by transesophageal echocardiogram for further evaluation of the aortic valve since the transthoracic echocardiogram was suboptimal. Informed consent was obtained after explaining the procedure and the potential risks to the patient who agreed to proceed with the procedure. PROCEDURE 1. Transesophageal echocardiogram. 2. DC cardioversion of atrial fibrillation to sinus rhythm. TECHNIQUE Conscious sedation was performed using Versed and fentanyl. Cetacaine spray was used for pharyngeal anesthesia. Probe was advanced into the esophagus and stomach and images were obtained in multiple planes. Left atrium is dilated. Left ventricular end-diastolic dimension is normal. Left ventricular wall thickness is increased. LV systolic function is normal with ejection fraction of about 55%. Right atrium is dilated. Right ventricle is normal. Mitral valve is sclerotic with mild mitral regurgitation. Aortic valve is a trileaflet structure with fibrocalcific changes. Mild restriction on opening motion is present. Using planimetry aortic valve area was measured between 1.47 and 1.67 cm2. There is no aortic insufficiency. Tricuspid valve shows [id number] tricuspid regurgitation. Pulmonary valve shows mild pulmonary insufficiency. There is no pericardial effusion. Agitated saline was injected which showed no evidence of jloyd-na-lgdy shunt. Descending thoracic aorta shows moderate atherosclerosis. IMPRESSION 1. Normal LV systolic function with ejection fraction of about 55%. 2. Left ventricular hypertrophy. 3. Biatrial dilation. 4. Mitral sclerosis with mild mitral regurgitation. 5. Mild aortic stenosis with a valve area of 1.47-1.67cm2. 6. Omwl-or-syxbcmqm tricuspid regurgitation. 7. Mild pulmonary insufficiency. 8. 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 After reviewing the images anterior-posterior Zoll pads were applied. 360 joules of energy was delivered in synchronized manner and patient converted from atrial fibrillation to sinus rhythm. He tolerated the procedure well with no complications. IMPRESSION Successful DC cardioversion of atrial fibrillation to sinus rhythm. PLAN Will continue anticoagulation and start antiarrhythmics to maintain sinus. MTDD
--- NOTE | 2018-06-17 19:33 | Progress Note ---
- Date 06/17/18 Subjective: F/U: Pneumonia, acute hypoxic respiratory failure, acute diastolic/valvular heart failure Doing well this evening. Report he feels his breathing is improving-less SOA, but still with some cough/congestion. No pain with breathing. Not having f/c. No chest pressure or pain. Did undergo SIRISHA/Cardioversion, but did not covert to sinus. Not having ab pain or discomfort. Nursing notes urine output with decreased (has been NPO most of day due to SIRISHA/Cardioversion). was able to come by this evening for visit-she is in [place] at ; first time he has seen her for about 2 weeks. Objective Vital signs: Temperature 97 F 06/17/18 16:15 Pulse Rate 48 L 06/17/18 16:15 Respiratory Rate 22 06/17/18 18:52 Blood Pressure 100/59 06/17/18 16:15 Pulse Oximetry 96 06/17/18 19:01 Rhythm: Atrial Fibrillation with Normal Ventricular Rate Height/Weight/BMI: Height 1.88 m Weight 111.9 kg Body Mass Index 29.3 - Constitutional Present: well nourished, well developed, average body habitus, obese, cooperative. Absent: combative, agitated, somnolent, obtunded - Routine HEENT Exam Head: Present: normocephalic, atraumatic Eye: Present: EOMI, PERRL, normal accommodation ENT: Present: mucous membranes moist - Routine Respiratory Exam Present: decreased breath sounds, crackles (Faint). Absent: respiratory distress - Routine Cardiovascular Exam Present: irregular rhythm, irregularly irregular - Routine Abdominal Exam Present: soft, normoactive bowel sounds, non distended, non tender. Absent: guarding - Routine Extremities Exam Present: pulses intact. Absent: cyanosis, clubbing - Routine Musculoskeletal Exam Musculoskeletal: Present: no clubbing or cyanosis - Routine Skin Exam Present: dry, warm - Routine Neurological Exam Present: alert, oriented X3, CN II-XII intact, moving all extremities, vision grossly intact, hearing grossly intact, normal speech. Absent: motor deficit, altered mental status - Routine Psychiatric Exam Present: normal affect, normal thought process, cooperative Results - Labs CBC & Chem 7: 06/17/18 04:24 06/17/18 04:24 Microbiology Results: Microbiology 06/11/18 18:03 Peripheral/Iv Start Blood Culture - Final No Growth After 5 Days 06/11/18 17:51 Peripheral/Iv Start Blood Culture - Final No Growth After 5 Days 06/11/18 09:26 Sputum, Expectorated Gram Stain - Final 06/11/18 09:26 Sputum, Expectorated Sputum Culture - Final Haemophilus influenzae Normal Respiratory Malini 06/11/18 17:27 Urine Legionella Urinary Antigen - Final 06/11/18 17:27 Urine Streptococcus pneumoniae Antigen (M - Final Assessment and Plan (1) Severe sepsis Current visit: Yes Status: Acute (2) Pneumonia Current visit: Yes Status: Acute Assessment and Plan: Impression Sepsis-severe 1. CAP 2. Leukocytosis, 3. Bandemia, 4. Tachycardia, 5. Tachypnea, 6. Lactic acidosis Community acquired pneumonia - Haemophilus influenza Acute hypoxic respiratory failure Hypokalemia (POA) Pulmonary edema Acute congestive heart failure-valvular Non-ST elevation DE - Type II DE Aortic stenosis - moderate severe Elevated LFTs Atrial fibrillation, chronic Anticoagulation on warfarin Hypertension Presbyesophagus GERD Plan SIRISHA/Cardioversion attempted today, but patient not able to convert to sinus. Amiodarone drip started by cardiology and plans reattempt tomorrow. Continue with ceftriaxone. Day 7 of antibiotics for Haemophilus influenza pneumonia. Prednisone at 60mg (Day #3), will decrease to 40mg tomorrow. Chest X-ray without change. O2 needs at 3L currently. Lasix decreased to 40mg IV daily. Creatinine stable at 0.8. Potassium 4.2 with Mg 2.2. INR decreased to 2.71. Recheck CBC in am due to resolving sepsis and pneumonia. Will repeat CMP in am due to medication use. Case discussed with CCU nursing and pt's daughter. Time spent with pt care 25 minutes. DVT Prophylaxis: SCD's, Coumadin GI Prophylaxis: Omeprazole Resuscitation Status: Full Code - Time spent with patient Time with patient PN: 25 minutes - Physician Narrative Physician: Leo Scott MD Narrative: Date: 06/17/18 Time: 1929 Hospital Course Summary Disclaimer: The visit summary below is not to be considered part of the above Progress Note. Hospital Course: Impression Sepsis, sepsis 1. CAP 2. Leukocytosis, 3. Bandemia, 4. Tachycardia, 5. Tachypnea Community acquired pneumonia Hypoxia Requiring oxygen Hypokalemia- POA Elevated LFTs Tachycardia History of atrial fibrillation Anticoagulation on warfarin Hypertension presbyesophagus GERD Plan 06/11/18 Admit to inpatient status under the care of Dr. Urbina for sepsis and pneumonia. Will continue on IV Rocephin and IV Azithromycin for pulmonary coverage. Sputum cultures pending. will repeat a venous lactate as the last one did trend up Continue on scheduled DuoNeb breathing treatments 4 times a day. Currently on 2 liters of oxygen by nasal cannula Consultation placed to speech therapy given question for dysphagia. Recent Vomiting, hx of Presbyesophagus Replace oral potassium and monitor Home antihypertensives remain on hold at time of admission given sepsis This patient on cardiac telemetry. Given irregular heartbeat and known history of atrial fibrillation SCDs to bilateral lower extremity for DVT prophylaxis. Check CMP tomorrow morning to follow elevated LFTs Consultation with PT and OT, Given patient's weakness secondary to acute illness. Addendum: Progressive deterioration in respiratory status through the day prompted switching from ceftriaxone to Zosyn for broader coverage and anaerobic coverage. Later transferred to ICU and diuresis initiated due to concern that he was becoming volume overloaded. Echo ordered for a.m. 06/12/18 Converted from ceftriaxone to Zosyn yesterday evening for broader coverage and anaerobic coverage given known history of presbyesophagus and risk of aspiration. Azithromycin continued for atypical coverage. Respiratory viral panel negative, urine antigens pending as is sputum culture. Afebrile overnight, appears clinically improved this morning overall. Continue aggressive breathing treatments and Solu-Medrol for additional 24 hours after which will begin tapering. Discussed with RT-Acapella to be initiated. Volume overloaded with development of acute congestive heart failure and component of pulmonary edema following volume replacement yesterday; now known to have moderately severe aortic stenosis by echo this morning. Cardiology consulted. Continue diuresis initiated yesterday evening. Blood pressure improved from yesterday, no recurrent "spells". Ongoing potassium replacement. Resolution of abnormal liver enzymes. 06/13/18 Patient reports clinical improvement, afebrile, decreasing cough and improved exertional tolerance. Continue Zosyn; complete 3 days azithromycin today. Sputum culture/blood cultures pending. Chest x-ray in a.m. White count climbing but no sign of worsening infection; likely due to steroids. Begin titrating steroid dose; continue breathing treatments and Acapella with treatments. Diuresed well yesterday, now has net negative fluid balance compared to admission. Stable cardiac rhythm, persistent low-grade tachycardia, metoprolol dose increased by cardiology for improved rate control. INR remains elevated, low-dose vitamin K given to prevent further climb and anticipate stabilization as oral intake improves and following discontinuation of azithromycin. Mental status clearing, appears to in the evening-continue to monitor. Requires ongoing potassium supplementation-recheck potassium later today to determine if additional potassium needed. 06/14/18 Continued clinical improvement, partial clearing on chest x-ray. With identification of Haemophilus influenza will resume ceftriaxone and discontinue Zosyn. Continue to monitor leukocytosis with change in antibiotics and as steroids tapered. If doing well tomorrow will convert prednisone. Heart rate improving although tachycardic with minimal activity. Metoprolol increased yesterday BUN/creatinine up slightly today-Lasix decreased to daily. Potassium is stabilized, decrease potassium supplement in conjunction with decreased diuresis. Valvular heart disease present-aortic stenosis not adequately visualized on transthoracic study -anticipate SIRISHA in the near future with left heart catheter. Mental status significantly improved from first 2 days in the hospital. INR down slightly today but remains super-therapeutic, warfarin remains on hold. 06/15/18 Continued progress, day 5 of antibiotics for Haemophilus influenza pneumonia. Afebrile, white count improving as is oxygen demand. Convert to prednisone po. Continue diuresis with Lasix daily; anticipate SIRISHA and left heart catheter in near future. Heart rate relatively well controlled, intermittent tachycardia-primarily with activities. Blood pressure stable. Fasting blood sugars modestly elevated-A1c in a.m. Loose stools described today, C. difficile PCR will be checked. 06/16/18 Continue with ceftriaxone. Day 6 of antibiotics for Haemophilus influenza pneumonia. Prednisone at 60mg (Day #2). Lasix increased to 40mg IV q8 hours to help motivate fluid. Creatinine stable at 0.8. Metoprolol increase to 100mg BID by cardiology to help heart rate. Anticipate SIRISHA and left heart catheter in near future. A1c with slight elevation at 6.4%, C. diff PCR negative. Tolerating therapy to improve functional status. Likely need skilled care post discharge. INR improving but remains super-therapeutic at 3.51, warfarin remains on hold. Possible transfer to medical floor - would continue CCU care if SIRISHA planned in near future. 06/17/18 SIRISHA/Cardioversion attempted today, but patient not able to convert to sinus. Amiodarone drip started by cardiology and plans reattempt tomorrow. Continue with ceftriaxone. Day 7 of antibiotics for Haemophilus influenza pneumonia. Prednisone at 60mg (Day #3), will decrease to 40mg tomorrow. Chest X-ray without change. O2 needs at 3L currently. Lasix decreased to 40mg IV daily. Creatinine stable at 0.8. Potassium 4.2 with Mg 2.2. INR decreased to 2.71. Will continue with CCU care and monitoring as repeat bedside cardioversion planned for tomorrow.
[2018-06-17] MEDS: CITALOPRAM 20 MG TABLET PO SCH (21:00)
[2018-06-17] MEDS: LATANOPROST 0.005% EYE DROPS 2.5ml EACH EYE SCH (21:01)
[2018-06-17] MEDS: EZETIMIBE 10 MG TABLET PO SCH (21:01)
[2018-06-17] MEDS: SIMVASTATIN 40 MG TABLET PO SCH (21:01)
[2018-06-17] MEDS ORDERED: AMIODARONE 900 MG in NS 500ml 500 ML IV SCH (21:30)
[2018-06-18] MEDS: OMEPRAZOLE 20 MG CAPSULE PO SCH (07:04)
[2018-06-18] MEDS: ALBUTEROL/IPRATROPIUM 2.5mg-0.5mg/3ml NEB AEROSOL SCH ×4 (08:04→20:17)
[2018-06-18] MEDS: FUROSEMIDE 40 MG/4 ML INJECTION IVP SCH (08:27)
[2018-06-18] MEDS: LISINOPRIL 10 MG TABLET PO SCH (08:27)
[2018-06-18] MEDS: PredniSONE 20 MG TABLET PO SCH (09:53)
--- NOTE | 2018-06-18 10:00 | Cardiology Progress Note ---
<Waleska Rodriguez K - Last Filed: 06/18/18 15:48> Subjective Principal diagnosis: dyspnea Interval history: Anthony is seen in follow up of , A Fib with RVR. He denies chest pain, palpitations, dizziness or nausea. Pt underwent DCCV this am, again without successful conversion to NSR. Will focus on rate control and anticoagulation. Will have patient follow up as an outpatient to discuss possible ablation in the near future. Exam Vital signs: Temperature 97.6 F 06/18/18 04:00 Pulse Rate 69 06/18/18 06:37 Respiratory Rate 20 06/18/18 08:04 Blood Pressure 142/84 H 06/18/18 06:37 Pulse Oximetry 98 06/18/18 08:04 Inpatient Medications: Generic Name Dose Route Start Last Admin Trade Name Freq PRN Reason Stop Dose Admin Acetaminophen 650 mg 06/11/18 19:45 06/15/18 21:05 Tylenol PO 650 mg QID PRN Administration Discomfort Acetaminophen 325 - 650 mg 06/17/18 15:20 Tylenol PO Q5H PRN Discomfort Hydrocodone Bitart/Acetaminophen 1 tab 06/10/18 22:27 [place] 5/325 PO Q6H PRN Pain Al Hydroxide/Mg Hydroxide 30 ml 06/17/18 15:20 Maalox Plus PO Q3-4HR PRN Indigestion Albuterol Sulfate 5 mg 06/12/18 11:20 Proventil Neb (0.5%) AEROSOL Q2H PRN Albuterol/Ipratropium 3 ml 06/10/18 23:36 Duoneb AEROSOL Q4H PRN Albuterol/Ipratropium 3 ml 06/15/18 07:00 06/18/18 08:04 Duoneb AEROSOL 3 ml RTTID JOSE A Administration Bisacodyl 10 mg 06/17/18 15:20 Dulcolax RECTALLY DAILY PRN Constipation Cholecalciferol 1,000 unit 06/11/18 09:00 06/17/18 08:35 Vit. D-3 PO 1,000 unit DAILY JOSE A Administration Citalopram Hydrobromide 20 mg 06/11/18 21:00 06/17/18 21:00 Celexa PO 20 mg HS JOSE A Administration Ezetimibe 10 mg 06/11/18 21:00 06/17/18 21:01 Zetia PO 10 mg HS JOSE A Administration Furosemide 40 mg 06/19/18 09:00 Lasix 40 Mg Tab PO DAILY JOSE A Guaifenesin 400 mg 06/11/18 10:52 06/15/18 23:24 Robitussin Liq PO 200 mg Q6H PRN Administration Cough /Congestion Guaifenesin/Dextromethorphan 1 tab 06/16/18 11:40 06/17/18 21:01 Mucinex Dm PO 1 tab BID JOSE A Administration Ceftriaxone Sodium 1 g/ Sodium 100 mls @ 200 mls/hr 06/14/18 14:00 06/17/18 15:23 Chloride IV Infused Q24H JOSE A Infusion Amiodarone HCl 900 mg/ Sodium 500 mls @ 16.66 mls/hr 06/17/18 21:30 06/18/18 06:00 Chloride IV 0.49 mg/min .Q24H JOSE A 16.66 mls/hr Infusion 0.5 MG/MIN Latanoprost 1 drops 06/11/18 21:00 06/17/18 21:01 Xalatan EACH EYE 1 drops HS JOSE A Administration Lisinopril 10 mg 06/12/18 13:30 06/18/18 08:27 Prinivil PO 10 mg DAILY JOSE A Administration Loperamide HCl 2 mg 06/15/18 11:42 06/15/18 12:19 Imodium PO 2 mg PRN PRN Administration Protocol Lorazepam 1 mg 06/12/18 18:05 Ativan Inj IVP Q4H PRN Lorazepam 0.5 - 1 mg 06/17/18 15:20 Ativan PO Q4H PRN Lorazepam 0.5 - 1 mg 06/17/18 15:20 Ativan Inj IVP Q4H PRN Magnesium Hydroxide 30 ml 06/17/18 15:20 Mom PO DAILY PRN Constipation Menthol 1 lozenge 06/16/18 11:40 Ricola Sf MM PRN PRN Cough Metoclopramide HCl 5 - 10 mg 06/17/18 15:20 Reglan IVP Q6H PRN Nausea &/or vomiting Metoprolol Tartrate 5 mg 06/11/18 23:09 06/13/18 16:05 Lopressor IVP 5 mg Q6H PRN Administration Metoprolol Tartrate 100 mg 06/16/18 17:30 06/18/18 08:27 Lopressor PO 100 mg BIDWM JOSE A Administration Nitroglycerin 0.4 mg 06/17/18 15:20 Nitrostat SL Q5MIN3 PRN Chest pain Omeprazole 20 mg 06/11/18 06:30 06/18/18 07:04 Prilosec PO Not Given ACB JOSE A Ondansetron HCl 4 mg 06/10/18 22:27 Zofran IVP Q6H PRN Nausea &/or vomiting Potassium Chloride 20 meq 06/15/18 08:00 06/17/18 08:36 K-Dur 20 Meq Tablet PO 20 meq WB JOSE A Administration Prednisone 40 mg 06/18/18 08:00 06/18/18 09:53 Deltasone 20 Mg PO 40 mg WB JOSE A Administration Promethazine HCl 12.5 - 25 mg 06/17/18 15:20 Phenergan Inj IVP Q6H PRN Nausea Senna/Docusate Sodium 1 tab 06/10/18 22:27 Senna Plus Tablet PO BID PRN Constipation Simvastatin 40 mg 06/11/18 21:00 06/17/18 21:01 Zocor PO 40 mg HS JOSE A Administration Sodium Chloride 10 - 80 ml 06/10/18 20:50 06/17/18 04:27 Iv Flush IVF 50 ml PRN PRN Administration Flushing Sodium Chloride 500 ml 06/12/18 20:08 06/16/18 14:08 Normal Saline IV 500 ml PRN PRN Administration Discontinued Medications Generic Name Dose Route Start Last Admin Trade Name Freq PRN Reason Stop Dose Admin Acetaminophen 325 - 650 mg 06/10/18 22:27 Tylenol [place] Q5H PRN Pain Hydrocodone Bitart/Acetaminophen 1 tab 06/10/18 21:56 06/10/18 21:58 [place] 5/325 PO 06/10/18 21:57 1 tab O ONE Administration Albuterol Sulfate 2.5 mg 06/10/18 20:52 06/10/18 20:58 Proventil Neb (0.083%) AEROSOL 06/10/18 20:53 2.5 mg O ONE Administration Albuterol Sulfate 5 mg 06/10/18 23:52 Proventil Neb (0.5%) AEROSOL RTQID PRN Albuterol/Ipratropium 3 ml 06/11/18 07:00 06/11/18 08:57 Duoneb AEROSOL 3 ml RTBID JOSE A Administration Albuterol/Ipratropium 3 ml 06/11/18 11:00 06/14/18 19:01 Duoneb AEROSOL 3 ml RTQID JOSE A Administration Amlodipine Besylate 5 mg 06/11/18 09:00 06/17/18 08:35 Norvasc PO 5 mg DAILY JOSE A Administration Azithromycin 500 mg 06/10/18 21:47 06/10/18 21:55 Zithromax PO 06/10/18 21:48 Not Given O ONE Diltiazem HCl 180 mg 06/17/18 09:00 06/17/18 08:37 Cardizem Cd 180 Mg PO 180 mg DAILY JOSE A Administration Enoxaparin Sodium 40 mg 06/11/18 09:00 06/11/18 09:07 Lovenox SQ 40 mg DAILY JOSE A Administration Furosemide 40 mg 06/11/18 21:19 06/11/18 21:22 Lasix 40 Mg/4 Ml IVP 06/11/18 21:20 40 mg O ONE Administration Furosemide 40 mg 06/12/18 08:31 06/12/18 10:10 Lasix 40 Mg/4 Ml IVP 06/12/18 08:32 40 mg ONE TIME ONE Administration Furosemide 40 mg 06/12/18 17:00 06/14/18 20:58 Lasix 40 Mg/4 Ml IVP Not Given Q8HR JOSE A Furosemide 40 mg 06/14/18 21:00 Lasix 40 Mg/4 Ml IVP Q12HR JOSE A Furosemide 40 mg 06/15/18 09:00 06/16/18 08:16 Lasix 40 Mg/4 Ml IVP 40 mg DAILY JOSE A Administration Furosemide 40 mg 06/16/18 17:00 06/16/18 17:03 Lasix 40 Mg/4 Ml IVP 40 mg Q8HR JOSE A Administration Furosemide 40 mg 06/17/18 09:00 06/18/18 08:27 Lasix 40 Mg/4 Ml IVP 40 mg DAILY JOSE A Administration Haloperidol Lactate 1 mg 06/12/18 17:24 06/12/18 17:15 Haldol IVP 06/13/18 00:00 1 mg Q4H PRN Administration Sodium Chloride 1,000 mls @ 999.9 mls/hr 06/10/18 20:51 06/10/18 21:55 Normal Saline IV 06/10/18 21:50 Infused .Q1H ONE Infusion Azithromycin 500 mg/ Sodium 250 mls @ 167 mls/hr 06/10/18 21:49 06/10/18 21: 55 Chloride IV 06/10/18 23:18 167 mls/hr O ONE Administration Sodium Chloride 1,000 mls @ 100 mls/hr 06/10/18 22:27 06/11/18 21:03 Normal Saline IV Infused .Q10H JOSE A Infusion Azithromycin 500 mg/ Sodium 250 mls @ 167 mls/hr 06/11/18 22:00 06/13/18 00: 00 Chloride IV 06/13/18 21:59 Infused Q24H JOSE A Infusion Ceftriaxone Sodium 1 g/ Sodium 100 mls @ 200 mls/hr 06/11/18 22:00 Chloride IV Q24H JOSE A Sodium Chloride 1,000 mls @ 250 mls/hr 06/11/18 14:00 06/11/18 19:34 Normal Saline IV Not Given .Q4H JOSE A Piperacillin Sod/Tazobactam 100 mls @ 200 mls/hr 06/11/18 19:45 06/14/18 14: 00 Sod 3.375 gm/ Sodium Chloride IV Infused Q6H JOSE A Infusion Amiodarone HCl 150 mg/ Sodium 103 mls @ 618 mls/hr 06/17/18 15:26 06/17/18 16 :08 Chloride IV 06/17/18 15:35 Infused O ONE Infusion Amiodarone HCl 450 mg/ Sodium 250 mls @ 33.33 mls/hr 06/17/18 15:28 06/17/18 22:28 Chloride IV 06/17/18 21:28 Infused .Q7H31M JOSE A Infusion 1 MG/MIN Lisinopril 10 mg 06/11/18 09:00 Prinivil PO DAILY JOSE A Lorazepam 0.5 mg 06/11/18 14:04 06/12/18 17:03 Ativan Inj IVP 0.5 mg Q4H PRN Administration Methylprednisolone Sodium Succinate 125 mg 06/11/18 17:00 06/13/18 08:36 Solu-Medrol IVP 125 mg Q8HR JOSE A Administration Methylprednisolone Sodium Succinate 62.5 mg 06/13/18 17:00 06/15/18 08:55 Solu-Medrol IVP 62.5 mg Q8HR JOSE A Administration Metoprolol Tartrate 50 mg 06/11/18 09:00 Lopressor PO BID JOSE A Metoprolol Tartrate 50 mg 06/11/18 11:49 06/13/18 08:38 Lopressor PO 50 mg BIDWM [facility] Administration Metoprolol Tartrate 25 mg 06/13/18 12:14 06/13/18 12:24 Lopressor PO 06/13/18 12:15 25 mg O ONE Administration Metoprolol Tartrate 75 mg 06/13/18 17:30 06/16/18 08:18 Lopressor PO 75 mg BIDWM [facility] Administration Non-Formulary Medication 1,000 unit 06/11/18 21:00 Cholecalciferol (Vitamin D3) [Vitamin D3] PO [facility] Pharmacy Consult 1 each 06/10/18 23:12 06/11/18 12:00 Pharmacy Consult - Fall Risk 06/10/18 23:13 1 each ONE TIME ONE Administration Pharmacy Consult each 06/12/18 00:46 Pharmacy Consult - Fall Risk 06/12/18 00:47 ONE TIME ONE Phytonadione 0.5 mg 06/13/18 12:00 06/13/18 12:23 Vitamin K Oral Liq PO 06/13/18 12:01 0.5 mg O ONE Administration Potassium Chloride 40 meq 06/11/18 11:55 06/11/18 12:03 K-Dur 20 Meq Tablet PO 06/11/18 11:56 40 meq O ONE Administration Potassium Chloride 40 meq 06/12/18 11:21 06/12/18 15:39 K-Dur 20 Meq Tablet PO 06/12/18 11:22 40 meq ONCE ONE Administration Potassium Chloride 20 meq 06/12/18 12:00 06/14/18 13:12 K-Dur 20 Meq Tablet PO 20 meq TIDWM [facility] Administration Potassium Chloride 40 meq 06/13/18 10:29 06/13/18 11:20 K-Dur 20 Meq Tablet PO 06/13/18 10:30 40 meq O ONE Administration Potassium Chloride 20 meq 06/13/18 17:15 06/13/18 17:52 K-Dur 20 Meq Tablet PO 06/13/18 17:16 20 meq ONCE ONE Administration Potassium Chloride 20 meq 06/14/18 14:13 06/14/18 17:45 K-Dur 20 Meq Tablet PO 06/14/18 14:14 20 meq O ONE Administration Prednisone 40 mg 06/11/18 15:39 Deltasone 20 Mg PO 06/11/18 15:40 O ONE Prednisone 40 mg 06/12/18 08:00 Deltasone 20 Mg PO 06/16/18 07:59 WB [facility] Prednisone 60 mg 06/15/18 14:23 06/17/18 08:35 Deltasone 20 Mg PO 60 mg WB [facility] Administration Warfarin Sodium 2.5 mg 06/11/18 12:30 06/12/18 15:39 Coumadin PO 2.5 mg [id number]@1200 [facility] Administration Warfarin Sodium 5 mg 06/13/18 12:00 Coumadin PO [id number]@1200 [facility] Warfarin Sodium 1 each 06/11/18 11:45 06/11/18 12:04 Pharmacy Consult - Warfarin 06/11/18 11:46 1 each O ONE Administration Warfarin Sodium 0 06/11/18 12:00 Coumadin Protocol NOTE JOSE A - Constitutional no acute distress, well nourished, well developed, cooperative - Routine HEENT Exam Head: Present: normocephalic, atraumatic Eye: Present: EOMI, PERRL ENT: Present: mucous membranes moist - Routine Neck Exam Present: supple, trachea midline. Absent: JVD, carotid bruit - Routine Chest/Breast/Axilla Exam Chest wall: Absent: tenderness - Routine Respiratory Exam Present: CTA bilaterally. Absent: accessory muscle use, rhonchi, stridor, wheezes, crackles - Routine Cardiovascular Exam Present: murmur, irregular rhythm. Absent: JVD - Routine Abdominal Exam Present: soft, normoactive bowel sounds, non distended, non tender - Routine Extremities Exam Present: no edema, pulses intact, normal capillary refill, extremity cold to touch. Absent: cyanosis, clubbing - Routine Skin Exam Present: intact, dry, warm. Absent: wounds, rash - Routine Neurological Exam Present: alert, oriented X3, moving all extremities, normal speech Slow to respond when spoken to - Routine Psychiatric Exam Present: normal affect, cooperative - Urinary Catheter Management Urethral Cath placed during this visit: yes, but has since been removed by the nurse Urethral indwelling: Yes Insertion date: 06/11/18 Insertion time: 17:25 Removal date: 06/12/18 Removal time: 02:10 Coude Cath placed during this visit: yes Insertion date: 06/12/18 Insertion time: 02:15 Results 06/18/18 03:55 06/18/18 03:55 Cardiac Enzymes 06/18/18 Range/Units 03:55 AST 30 D (17-59) U/L CBC 06/18/18 Range/Units 03:55 WBC 15.6 H (4.5-11.0) T/MM3 RBC 4.25 L (4.50-5.90) M/MM3 Hgb 12.9 L (13.5-17.5) GM/DL Hct 39.9 L (41-53) % Plt Count 213 (130-400) T/MM3 Neut # (Auto) Not performed Lymph # (Auto) Not performed Kaufman # (Auto) Not performed Eos # (Auto) Not performed Baso # (Auto) Not performed Comprehensive Metabolic Panel 06/18/18 Range/Units 03:55 Sodium 137 (136-146) MEQ/L Potassium 4.0 (3.6-5) MEQ/L Chloride 100 (98-107) MEQ/L Carbon Dioxide 28 (22-30) MEQ/L BUN 39.0 H (9-20) MG/DL Creatinine 1.0 D (0.8-1.5) mg/dL Glucose 108 (75-110) MG/DL Calcium 8.1 L (8.4-10.2) MG/DL AST 30 D (17-59) U/L ALT 81 H (1-50) U/L Alkaline Phosphatase 92 (38-126) U/L Total Protein 6.0 L (6.3-8.2) g/dL Albumin 2.9 L (3.5-5.0) g/dL Intake and Output 06/17/18 06/18/18 06/18/18 22:59 06:59 14:59 Intake Total 854.076 / 854.076 125.505 / 125.505 Output Total 275 / 275 475 / 475 390 / 390 Balance 579.076 / 579.076 -349.495 / -349.495 -390 / -390 Intake: IV 414.076 / 414.076 125.505 / 125.505 Amiodarone 150 mg In Ns 100 ml 103 / 103 @ 618 mls/hr IV O ONE Rx#: [id number] Amiodarone 450 mg In NS 250ml 211.076 / 211.076 250 ml @ 1 MG/MIN 33.33 mls/hr IV .Q7H31M JOSE A Rx#:[id number] Amiodarone 900 mg In NS 500ml 125.505 / 125.505 500 ml @ 0.5 MG/MIN 16.66 mls/ hr IV .Q24H JOSE A Rx#:[id number] Ceftriaxone 1 g In Ns 100 ml @ 100 / 100 200 mls/hr IV Q24H JOSE A Rx#: [id number] Oral 440 / 440 0 / 0 Output: Urine Amount (Catheter) 275 / 275 475 / 475 390 / 390 Other: Urine Color Yellow Yellow Yellow Stool Color Brown Stool Consistency Soft Size of Bowel Movement Moderate Weight 110.8 kg Patient Weight 06/19/18 06:59 Weight 110.8 kg - Imaging and Cardiology Echo: report reviewed EKG results: report reviewed Imaging & Cardiology Narrative: XRay Report Signed Patient: Anthony Kilgore MR#: [id number] : 1940 Age/Sex: 78 / M ADM Date: 06/10/18 Loc: [facility]U 4-P DIS Date: = = = = = = = = = = = = = = = = = = = = = = = = = = = = = = = = = = = = = = = = = = = = = = = = = = = = = = = = = = = Date of Exam: 06/14/18 Ordering Provider: Izzy Urbina MD Type of Exam(s): XR chest 2V Reason for Exam(s): pneumonia/CHF INDICATION: pneumonia/CHF PROCEDURE: CHEST 2-VIEWS UPRIGHT (PA & LAT) Encounter: Initial COMPARISON: June 12, 2018 FINDINGS: Right PICC line remains in place. Stable multifocal infiltrates along for differences in exposure technique. No pneumothorax. Trace pleural effusions. Heart size and mediastinal contours are stable. Pulmonary vascularity remains prominent. Impression: Stable multifocal infiltrates and pulmonary vascular congestion. . ECHOCARDIOGRAM DATE OF PROCEDURE 06/12/2018 PROCEDURE PERFORMED Transthoracic echocardiography, M-mode assessment, full color spectral Doppler assessment. INDICATIONS Atrial fibrillation, dyspnea. FINDINGS 1. STUDY QUALITY: Technically limited due to poor acoustic window. 2. LEFT VENTRICLE: Left ventricle appears normal in size. There is moderate concentric left ventricular hypertrophy noted. Left ventricular systolic function appears to be hyperdynamic. Estimated LVEF 70%-75%. No regional wall motion abnormalities noted. The study is not technically adequate to assess accurate diastolic dysfunction. 3. RIGHT VENTRICLE: Right ventricle appears normal in size. Normal right ventricular wall thickness noted. Normal right ventricular systolic function noted. 4. RIGHT ATRIUM: Right atrium is moderately dilated. 5. LEFT ATRIUM: Left atrium appears to be moderately to severely dilated. 6. MITRAL VALVE: There is mild mitral annular calcification noted. Mild thickening of the leaflets noted. There is no significant mitral stenosis noted. Mild mitral regurgitation noted. 7. AORTIC VALVE: The aortic valve is heavily calcified. Reduced systolic excursion of the leaflet. Appears to be trileaflet. There is trivial aortic regurgitation noted. There is moderate aortic stenosis noted. Peak velocities across the aortic valve 3.5 m/sec with a mean pressure gradient of 15, mean gradient of 25 mmHg with estimated calculated valve area of 1.3 cm2. Due to limited window the severity of aortic stenosis could not be accurately assessed on today's study. 8. TRICUSPID VALVE: Tricuspid valve appears structurally normal. Mild-to- moderate tricuspid regurgitation noted. 9. PULMONIC VALVE: Not visualized on today's study. 10. INFERIOR VENA CAVA: IVC is dilated with normal respirophasic variation suggestive of mildly elevated right atrial pressure. 11. PULMONARY ARTERY: Significantly elevated pulmonary artery systolic pressure. Estimated pulmonary artery systolic pressure is 60-65 mmHg. CONCLUSION 1. Hyperdynamic left ventricular systolic function. Estimated LVEF 70%-75%. 2. Normal right ventricular systolic function. 3. Mild mitral regurgitation noted. 4. At least moderate aortic stenosis noted. Peak velocity across the aortic valve 3.5, peak gradient 15, mean gradient 25 mmHg with calculated valve area of 1.3 cm2. Due to limited windows aortic stenosis severity could be underestimated. 5. Ykqg-wj-zkkdlmas tricuspid regurgitation noted. 6. Significantly elevated pulmonary artery systolic pressure. Estimated pulmonary artery systolic pressure 60-65 mmHg. . TRANSESOPHAGEAL ECHOCARDIOGRAM/CARDIOVERSION DATE OF PROCEDURE 06/17/2018 The patient is a 78-year-old gentleman with atrial fibrillation and aortic stenosis and was referred for further evaluation by transesophageal echocardiogram for further evaluation of the aortic valve since the transthoracic echocardiogram was suboptimal. Informed consent was obtained after explaining the procedure and the potential risks to the patient who agreed to proceed with the procedure. PROCEDURE 1. Transesophageal echocardiogram. 2. DC cardioversion of atrial fibrillation to sinus rhythm. TECHNIQUE Conscious sedation was performed using Versed and fentanyl. Cetacaine spray was used for pharyngeal anesthesia. Probe was advanced into the esophagus and stomach and images were obtained in multiple planes. Left atrium is dilated. Left ventricular end-diastolic dimension is normal. Left ventricular wall thickness is increased. LV systolic function is normal with ejection fraction of about 55%. Right atrium is dilated. Right ventricle is normal. Mitral valve is sclerotic with mild mitral regurgitation. Aortic valve is a trileaflet structure with fibrocalcific changes. Mild restriction on opening motion is present. Using planimetry aortic valve area was measured between 1.47 and 1.67 cm2. There is no aortic insufficiency. Tricuspid valve shows [id number] tricuspid regurgitation. Pulmonary valve shows mild pulmonary insufficiency. There is no pericardial effusion. Agitated saline was injected which showed no evidence of hllqe-ba-fqhz shunt. Descending thoracic aorta shows moderate atherosclerosis. IMPRESSION 1. Normal LV systolic function with ejection fraction of about 55%. 2. Left ventricular hypertrophy. 3. Biatrial dilation. 4. Mitral sclerosis with mild mitral regurgitation. 5. Mild aortic stenosis with a valve area of 1.47-1.67cm2. 6. Fgik-di-ftalhfdf tricuspid regurgitation. 7. Mild pulmonary insufficiency. 8. 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 After reviewing the images anterior-posterior Zoll pads were applied. 360 joules of energy was delivered in synchronized manner and patient converted from atrial fibrillation to sinus rhythm. He tolerated the procedure well with no complications. IMPRESSION Successful DC cardioversion of atrial fibrillation to sinus rhythm. PLAN Will continue anticoagulation and start antiarrhythmics to maintain sinus. 06/18/18 15:45 06/18/18 15:47 - EKG Interpretation EKG: no acute changes EKG shows: atrial fibrillation Assessment and Plan - Assessment and Plan (1) Sepsis Status: Acute (2) Paroxysmal A-fib Status: Chronic (3) HTN (hypertension) Status: Chronic (4) Pneumonia Status: Acute (5) Pulmonary edema Status: Acute (6) Mixed hyperlipidemia Status: Chronic (7) NSTEMI (non-ST elevated myocardial infarction) Status: Acute (8) Severe aortic stenosis Status: Acute (9) Supratherapeutic INR Status: Acute (10) CHF (congestive heart failure) Status: Acute (11) Coronary artery disease Status: Acute - Assessment and Plan - Assessment and Plan 06/18/2018 STABLE FOR DISCHARGE FROM CARDIAC STANDPOINT FOLLOW UP WITH DR. ROLLINS IN 2-4 WEEKS Severe aortic stenosis Current visit: Yes Status: Acute - SIRISHA: - Continue Lasix 40 mg PO daily - monitor renal and electrolytes NSTEMI (non-ST elevated myocardial infarction) Current visit: Yes Status: Acute - Type II, secondary to fluid overload, pneumonia - Troponin trending down: 1) 0.106, 2) 0.372, 3) 0.220 - 06/11/181956 EKG: A Fib HR 83, lateral AL, indeterminate age, ST depression in V6 - Continue BB, Statin, anticoagulated on Warfarin (INR 2.4) Pulmonary edema Current visit: Yes Status: Acute - Lasix 40mg PO daily - Potassium 20meq po daily - monitor renal and electrolytes Sepsis Current visit: Yes Status: Acute - Per hospitalist Pneumonia Current visit: Yes Status: Acute - per hospitalist Paroxysmal A-fib Current visit: Yes Status: Chronic - Rate well controlled, continue metoprolol - INR 2.4, chronic anticoagulation on warfarin - Monitor lytes. Keep K >4, Mg >2 - Unsuccessful attempts at cardioversion - Will focus on rate control and anticoagulation - Plan outpatient follow up and referral to EP for ablation sometime in the near future. HTN (hypertension) Current visit: Yes Status: Chronic - Continue Metoprolol, lisinopril, and lasix Mixed hyperlipidemia Current visit: Yes Status: Chronic - Continue Statin therapy Thank you for allowing us to participate in the care of this patient, we will follow along with you. Hospital Course Summary Disclaimer: The visit summary below is not to be considered part of the above Progress Note. Hospital Course: Impression Sepsis, sepsis 1. CAP 2. Leukocytosis, 3. Bandemia, 4. Tachycardia, 5. Tachypnea Community acquired pneumonia Hypoxia Requiring oxygen Hypokalemia- POA Elevated LFTs Tachycardia History of atrial fibrillation Anticoagulation on warfarin Hypertension presbyesophagus GERD Plan 06/11/18 Admit to inpatient status under the care of Dr. Urbina for sepsis and pneumonia. Will continue on IV Rocephin and IV Azithromycin for pulmonary coverage. Sputum cultures pending. will repeat a venous lactate as the last one did trend up Continue on scheduled DuoNeb breathing treatments 4 times a day. Currently on 2 liters of oxygen by nasal cannula Consultation placed to speech therapy given question for dysphagia. Recent Vomiting, hx of Presbyesophagus Replace oral potassium and monitor Home antihypertensives remain on hold at time of admission given sepsis This patient on cardiac telemetry. Given irregular heartbeat and known history of atrial fibrillation SCDs to bilateral lower extremity for DVT prophylaxis. Check CMP tomorrow morning to follow elevated LFTs Consultation with PT and OT, Given patient's weakness secondary to acute illness. Addendum: Progressive deterioration in respiratory status through the day prompted switching from ceftriaxone to Zosyn for broader coverage and anaerobic coverage. Later transferred to ICU and diuresis initiated due to concern that he was becoming volume overloaded. Echo ordered for a.m. 06/12/18 Converted from ceftriaxone to Zosyn yesterday evening for broader coverage and anaerobic coverage given known history of presbyesophagus and risk of aspiration. Azithromycin continued for atypical coverage. Respiratory viral panel negative, urine antigens pending as is sputum culture. Afebrile overnight, appears clinically improved this morning overall. Continue aggressive breathing treatments and Solu-Medrol for additional 24 hours after which will begin tapering. Discussed with RT-Acapella to be initiated. Volume overloaded with development of acute congestive heart failure and component of pulmonary edema following volume replacement yesterday; now known to have moderately severe aortic stenosis by echo this morning. Cardiology consulted. Continue diuresis initiated yesterday evening. Blood pressure improved from yesterday, no recurrent "spells". Ongoing potassium replacement. Resolution of abnormal liver enzymes. 06/13/18 Patient reports clinical improvement, afebrile, decreasing cough and improved exertional tolerance. Continue Zosyn; complete 3 days azithromycin today. Sputum culture/blood cultures pending. Chest x-ray in a.m. White count climbing but no sign of worsening infection; likely due to steroids. Begin titrating steroid dose; continue breathing treatments and Acapella with treatments. Diuresed well yesterday, now has net negative fluid balance compared to admission. Stable cardiac rhythm, persistent low-grade tachycardia, metoprolol dose increased by cardiology for improved rate control. INR remains elevated, low-dose vitamin K given to prevent further climb and anticipate stabilization as oral intake improves and following discontinuation of azithromycin. Mental status clearing, appears to in the evening-continue to monitor. Requires ongoing potassium supplementation-recheck potassium later today to determine if additional potassium needed. 06/14/18 Continued clinical improvement, partial clearing on chest x-ray. With identification of Haemophilus influenza will resume ceftriaxone and discontinue Zosyn. Continue to monitor leukocytosis with change in antibiotics and as steroids tapered. If doing well tomorrow will convert prednisone. Heart rate improving although tachycardic with minimal activity. Metoprolol increased yesterday BUN/creatinine up slightly today-Lasix decreased to daily. Potassium is stabilized, decrease potassium supplement in conjunction with decreased diuresis. Valvular heart disease present-aortic stenosis not adequately visualized on transthoracic study -anticipate SIRISHA in the near future with left heart catheter. Mental status significantly improved from first 2 days in the hospital. INR down slightly today but remains super-therapeutic, warfarin remains on hold. 06/15/18 Continued progress, day 5 of antibiotics for Haemophilus influenza pneumonia. Afebrile, white count improving as is oxygen demand. Convert to prednisone po. Continue diuresis with Lasix daily; anticipate SIRISHA and left heart catheter in near future. Heart rate relatively well controlled, intermittent tachycardia-primarily with activities. Blood pressure stable. Fasting blood sugars modestly elevated-A1c in a.m. Loose stools described today, C. difficile PCR will be checked. <Braden Rollins - Last Filed: 06/26/18 13:54> Exam Vital signs: Temperature 97.2 F 06/20/18 13:58 Pulse Rate 76 06/20/18 13:58 Respiratory Rate 22 06/20/18 13:58 Blood Pressure 105/62 06/20/18 13:58 Pulse Oximetry 97 06/20/18 13:58 Inpatient Medications: Discontinued Medications Generic Name Dose Route Start Last Admin Trade Name Freq PRN Reason Stop Dose Admin Acetaminophen 325 - 650 mg 06/10/18 22:27 Tylenol MN Q5H PRN Pain Acetaminophen 650 mg 06/11/18 19:45 06/15/18 21:05 Tylenol PO 650 mg QID PRN Administration Discomfort Acetaminophen 325 - 650 mg 06/17/18 15:20 Tylenol PO Q5H PRN Discomfort Acetaminophen 325 - 650 mg 06/18/18 14:28 Tylenol PO Q5H PRN Discomfort Hydrocodone Bitart/Acetaminophen 1 tab 06/10/18 21:56 06/10/18 21:58 [place] 5/325 PO 06/10/18 21:57 1 tab O ONE Administration Hydrocodone Bitart/Acetaminophen 1 tab 06/10/18 22:27 [place] 5/325 PO Q6H PRN Pain Al Hydroxide/Mg Hydroxide 30 ml 06/17/18 15:20 Maalox Plus PO Q3-4HR PRN Indigestion Al Hydroxide/Mg Hydroxide 30 ml 06/18/18 14:28 Maalox Plus PO Q3-4HR PRN Indigestion Albuterol Sulfate 2.5 mg 06/10/18 20:52 06/10/18 20:58 Proventil Neb (0.083%) AEROSOL 06/10/18 20:53 2.5 mg O ONE Administration Albuterol Sulfate 5 mg 06/10/18 23:52 Proventil Neb (0.5%) AEROSOL RTQID PRN Albuterol Sulfate 5 mg 06/12/18 11:20 Proventil Neb (0.5%) AEROSOL Q2H PRN Albuterol/Ipratropium 3 ml 06/11/18 07:00 06/11/18 08:57 Duoneb AEROSOL 3 ml RTBID JOSE A Administration Albuterol/Ipratropium 3 ml 06/10/18 23:36 06/19/18 07:19 Duoneb AEROSOL 3 ml Q4H PRN Administration Albuterol/Ipratropium 3 ml 06/11/18 11:00 06/14/18 19:01 Duoneb AEROSOL 3 ml RTQID JOSE A Administration Albuterol/Ipratropium 3 ml 06/15/18 07:00 06/18/18 20:17 Duoneb AEROSOL 3 ml RTTID JOSE A Administration Albuterol/Ipratropium 3 ml 06/19/18 19:00 06/20/18 06:49 Duoneb AEROSOL 3 ml RTBID JOSE A Administration Albuterol/Ipratropium 3 ml 06/19/18 19:00 06/19/18 19:48 Duoneb AEROSOL Not Given RTBID JOSE A Amlodipine Besylate 5 mg 06/11/18 09:00 06/17/18 08:35 Norvasc PO 5 mg DAILY JOSE A Administration Azithromycin 500 mg 06/10/18 21:47 06/10/18 21:55 Zithromax PO 06/10/18 21:48 Not Given O ONE Bisacodyl 10 mg 06/17/18 15:20 Dulcolax RECTALLY DAILY PRN Constipation Bisacodyl 10 mg 06/18/18 14:28 Dulcolax RECTALLY DAILY PRN Constipation Cholecalciferol 1,000 unit 06/11/18 09:00 06/20/18 09:14 Vit. D-3 PO 1,000 unit DAILY JOSE A Administration Citalopram Hydrobromide 20 mg 06/11/18 21:00 06/19/18 21:06 Celexa PO 20 mg HS JOSE A Administration Diltiazem HCl 180 mg 06/17/18 09:00 06/17/18 08:37 Cardizem Cd 180 Mg PO 180 mg DAILY JOSE A Administration Ezetimibe 10 mg 06/11/18 21:00 06/19/18 21:06 Zetia PO 10 mg HS JOSE A Administration Enoxaparin Sodium 40 mg 06/11/18 09:00 06/11/18 09:07 Lovenox SQ 40 mg DAILY JOSE A Administration Furosemide 40 mg 06/11/18 21:19 06/11/18 21:22 Lasix 40 Mg/4 Ml IVP 06/11/18 21:20 40 mg O ONE Administration Furosemide 40 mg 06/12/18 08:31 06/12/18 10:10 Lasix 40 Mg/4 Ml IVP 06/12/18 08:32 40 mg ONE TIME ONE Administration Furosemide 40 mg 06/12/18 17:00 06/14/18 20:58 Lasix 40 Mg/4 Ml IVP Not Given Q8HR JOSE A Furosemide 40 mg 06/14/18 21:00 Lasix 40 Mg/4 Ml IVP Q12HR JOSE A Furosemide 40 mg 06/15/18 09:00 06/16/18 08:16 Lasix 40 Mg/4 Ml IVP 40 mg DAILY JOSE A Administration Furosemide 40 mg 06/16/18 17:00 06/16/18 17:03 Lasix 40 Mg/4 Ml IVP 40 mg Q8HR JOSE A Administration Furosemide 40 mg 06/17/18 09:00 06/18/18 08:27 Lasix 40 Mg/4 Ml IVP 40 mg DAILY JOSE A Administration Furosemide 40 mg 06/19/18 09:00 06/20/18 09:14 Lasix 40 Mg Tab PO 40 mg DAILY JOSE A Administration Guaifenesin 400 mg 06/11/18 10:52 06/15/18 23:24 Robitussin Liq PO 200 mg Q6H PRN Administration Cough /Congestion Guaifenesin/Dextromethorphan 1 tab 06/16/18 11:40 06/20/18 09:17 Mucinex Dm PO 1 tab BID JOSE A Administration Haloperidol Lactate 1 mg 06/12/18 17:24 06/12/18 17:15 Haldol IVP 06/13/18 00:00 1 mg Q4H PRN Administration Sodium Chloride 1,000 mls @ 999.9 mls/hr 06/10/18 20:51 06/10/18 21:55 Normal Saline IV 06/10/18 21:50 Infused .Q1H ONE Infusion Azithromycin 500 mg/ Sodium 250 mls @ 167 mls/hr 06/10/18 21:49 06/10/18 21: 55 Chloride IV 06/10/18 23:18 167 mls/hr O ONE Administration Sodium Chloride 1,000 mls @ 100 mls/hr 06/10/18 22:27 06/11/18 21:03 Normal Saline IV Infused .Q10H JOSE A Infusion Azithromycin 500 mg/ Sodium 250 mls @ 167 mls/hr 06/11/18 22:00 06/13/18 00: 00 Chloride IV 06/13/18 21:59 Infused Q24H JOSE A Infusion Ceftriaxone Sodium 1 g/ Sodium 100 mls @ 200 mls/hr 06/11/18 22:00 Chloride IV Q24H JOSE A Sodium Chloride 1,000 mls @ 250 mls/hr 06/11/18 14:00 06/11/18 19:34 Normal Saline IV Not Given .Q4H JOSE A Piperacillin Sod/Tazobactam 100 mls @ 200 mls/hr 06/11/18 19:45 06/14/18 14: 00 Sod 3.375 gm/ Sodium Chloride IV Infused Q6H JOSE A Infusion Ceftriaxone Sodium 1 g/ Sodium 100 mls @ 200 mls/hr 06/14/18 14:00 06/19/18 15:10 Chloride IV Infused Q24H JOSE A Infusion Amiodarone HCl 150 mg/ Sodium 103 mls @ 618 mls/hr 06/17/18 15:26 06/17/18 16 :08 Chloride IV 06/17/18 15:35 Infused O ONE Infusion Amiodarone HCl 450 mg/ Sodium 250 mls @ 33.33 mls/hr 06/17/18 15:28 06/17/18 22:28 Chloride IV 06/17/18 21:28 Infused .Q7H31M JOSE A Infusion 1 MG/MIN Amiodarone HCl 900 mg/ Sodium 500 mls @ 16.66 mls/hr 06/17/18 21:30 06/18/18 14:00 Chloride IV 0.49 mg/min .Q24H JOSE A 16.66 mls/hr Infusion 0.5 MG/MIN Sodium Chloride 250 mls @ 500 mls/hr 06/18/18 18:14 06/18/18 19:00 Normal Saline IV 06/18/18 18:43 Infused .Q30M ONE Infusion Ceftriaxone Sodium 1 g/ Sodium 100 mls @ 200 mls/hr 06/20/18 11:00 06/20/18 11:46 Chloride IV Infused Q24H JOSE A Infusion Latanoprost 1 drops 06/11/18 21:00 06/19/18 21:07 Xalatan EACH EYE 1 drops HS JOSE A Administration Lisinopril 10 mg 06/11/18 09:00 Prinivil PO DAILY JOSE A Lisinopril 10 mg 06/12/18 13:30 06/20/18 09:14 Prinivil PO 10 mg DAILY JOSE A Administration Loperamide HCl 2 mg 06/15/18 11:42 06/15/18 12:19 Imodium PO 2 mg PRN PRN Administration Protocol Lorazepam 0.5 mg 06/11/18 14:04 06/12/18 17:03 Ativan Inj IVP 0.5 mg Q4H PRN Administration Lorazepam 1 mg 06/12/18 18:05 Ativan Inj IVP Q4H PRN Lorazepam 0.5 - 1 mg 06/17/18 15:20 Ativan PO Q4H PRN Lorazepam 0.5 - 1 mg 06/17/18 15:20 Ativan Inj IVP Q4H PRN Lorazepam 0.5 - 1 mg 06/18/18 14:28 Ativan Inj IVP Q4H PRN Lorazepam 0.5 - 1 mg 06/18/18 14:28 Ativan PO Q4H PRN Magnesium Hydroxide 30 ml 06/17/18 15:20 Mom PO DAILY PRN Constipation Magnesium Hydroxide 30 ml 06/18/18 14:28 Mom PO DAILY PRN Constipation Menthol 1 lozenge 06/16/18 11:40 Ricola Sf MM PRN PRN Cough Methylprednisolone Sodium Succinate 125 mg 06/11/18 17:00 06/13/18 08:36 Solu-Medrol IVP 125 mg Q8HR JOSE A Administration Methylprednisolone Sodium Succinate 62.5 mg 06/13/18 17:00 06/15/18 08:55 Solu-Medrol IVP 62.5 mg Q8HR JOSE A Administration Metoclopramide HCl 5 - 10 mg 06/17/18 15:20 Reglan IVP Q6H PRN Nausea &/or vomiting Metoprolol Tartrate 50 mg 06/11/18 09:00 Lopressor PO BID JOSE A Metoprolol Tartrate 50 mg 06/11/18 11:49 06/13/18 08:38 Lopressor PO 50 mg BIDWM JOSE A Administration Metoprolol Tartrate 5 mg 06/11/18 23:09 06/13/18 16:05 Lopressor IVP 5 mg Q6H PRN Administration Metoprolol Tartrate 25 mg 06/13/18 12:14 06/13/18 12:24 Lopressor PO 06/13/18 12:15 25 mg O ONE Administration Metoprolol Tartrate 75 mg 06/13/18 17:30 06/16/18 08:18 Lopressor PO 75 mg BIDWM [facility] Administration Metoprolol Tartrate 100 mg 06/16/18 17:30 06/20/18 09:17 Lopressor PO 100 mg BIDWM [facility] Administration Nitroglycerin 0.4 mg 06/17/18 15:20 Nitrostat SL Q5MIN3 PRN Chest pain Nitroglycerin 0.4 mg 06/18/18 14:28 Nitrostat SL Q5MIN3 PRN Chest pain Non-Formulary Medication 1,000 unit 06/11/18 21:00 Cholecalciferol (Vitamin D3) [Vitamin D3] PO HS JOSE A Omeprazole 20 mg 06/11/18 06:30 06/20/18 06:31 Prilosec PO 20 mg ACB JOSE A Administration Ondansetron HCl 4 mg 06/10/18 22:27 Zofran IVP Q6H PRN Nausea &/or vomiting Pharmacy Consult 1 each 06/10/18 23:12 06/11/18 12:00 Pharmacy Consult - Fall Risk 06/10/18 23:13 1 each ONE TIME ONE Administration Pharmacy Consult each 06/12/18 00:46 Pharmacy Consult - Fall Risk 06/12/18 00:47 ONE TIME ONE Phytonadione 0.5 mg 06/13/18 12:00 06/13/18 12:23 Vitamin K Oral Liq PO 06/13/18 12:01 0.5 mg O ONE Administration Potassium Chloride 40 meq 06/11/18 11:55 06/11/18 12:03 K-Dur 20 Meq Tablet PO 06/11/18 11:56 40 meq O ONE Administration Potassium Chloride 40 meq 06/12/18 11:21 06/12/18 15:39 K-Dur 20 Meq Tablet PO 06/12/18 11:22 40 meq ONCE ONE Administration Potassium Chloride 20 meq 06/12/18 12:00 06/14/18 13:12 K-Dur 20 Meq Tablet PO 20 meq TIDWM JOSE A Administration Potassium Chloride 40 meq 06/13/18 10:29 06/13/18 11:20 K-Dur 20 Meq Tablet PO 06/13/18 10:30 40 meq O ONE Administration Potassium Chloride 20 meq 06/13/18 17:15 06/13/18 17:52 K-Dur 20 Meq Tablet PO 06/13/18 17:16 20 meq ONCE ONE Administration Potassium Chloride 20 meq 06/15/18 08:00 06/20/18 09:14 K-Dur 20 Meq Tablet PO 20 meq WB JOSE A Administration Potassium Chloride 20 meq 06/14/18 14:13 06/14/18 17:45 K-Dur 20 Meq Tablet PO 06/14/18 14:14 20 meq O ONE Administration Prednisone 40 mg 06/11/18 15:39 Deltasone 20 Mg PO 06/11/18 15:40 O ONE Prednisone 40 mg 06/12/18 08:00 Deltasone 20 Mg PO 06/16/18 07:59 WB JOSE A Prednisone 60 mg 06/15/18 14:23 06/17/18 08:35 Deltasone 20 Mg PO 60 mg WB JOSE A Administration Prednisone 40 mg 06/18/18 08:00 06/19/18 09:18 Deltasone 20 Mg PO 40 mg WB JOSE A Administration Prednisone 20 mg 06/20/18 08:00 06/20/18 09:14 Deltasone 20 Mg PO 20 mg WB JOSE A Administration Promethazine HCl 12.5 - 25 mg 06/17/18 15:20 Phenergan Inj IVP Q6H PRN Nausea Promethazine HCl 12.5 - 25 mg 06/18/18 14:28 Phenergan Inj IVP Q6H PRN Nausea Senna/Docusate Sodium 1 tab 06/10/18 22:27 06/19/18 09:19 Senna Plus Tablet PO 1 tab BID PRN Administration Constipation Simvastatin 40 mg 06/11/18 21:00 06/19/18 21:06 Zocor PO 40 mg HS JOSE A Administration Sodium Chloride 10 - 80 ml 06/10/18 20:50 06/20/18 11:16 Iv Flush IVF 10 ml PRN PRN Administration Flushing Sodium Chloride 500 ml 06/12/18 20:08 06/16/18 14:08 Normal Saline IV 500 ml PRN PRN Administration Warfarin Sodium 2.5 mg 06/11/18 12:30 06/12/18 15:39 Coumadin PO 2.5 mg [id number]@1200 [facility] Administration Warfarin Sodium 5 mg 06/13/18 12:00 Coumadin PO MoFr@1200 [facility] Warfarin Sodium 1 each 06/11/18 11:45 06/11/18 12:04 Pharmacy Consult - Warfarin 06/11/18 11:46 1 each O ONE Administration Warfarin Sodium 0 06/11/18 12:00 Coumadin Protocol NOTE JOSE A Warfarin Sodium 2.5 mg 06/18/18 19:36 06/18/18 21:13 Coumadin PO 06/18/18 19:37 2.5 mg O ONE Administration Warfarin Sodium 4 mg 06/19/18 12:30 06/19/18 13:10 Coumadin PO 06/19/18 12:31 4 mg O ONE Administration Warfarin Sodium 5 mg 06/20/18 12:00 06/20/18 11:16 Coumadin PO 06/20/18 12:01 5 mg O ONE Administration - Urinary Catheter Management Urethral Cath placed during this visit: no Coude Cath placed during this visit: no Results 06/20/18 04:13 06/20/18 04:13 Assessment and Plan - Assessment and Plan (1) Sepsis Status: Acute (2) Paroxysmal A-fib Status: Chronic (3) HTN (hypertension) Status: Chronic (4) Pneumonia Status: Acute (5) Pulmonary edema Status: Acute (6) Mixed hyperlipidemia Status: Chronic (7) NSTEMI (non-ST elevated myocardial infarction) Status: Acute (8) Severe aortic stenosis Status: Acute (9) Supratherapeutic INR Status: Acute (10) CHF (congestive heart failure) Status: Acute (11) Coronary artery disease Status: Acute - Attestation Attestation Narrative: 06/26/18 13:54 Recommendation After examining the patient I agree with the above assessment. I am involved in the formulation of the patient's plan of care. Hospital Course Summary Disclaimer: The visit summary below is not to be considered part of the above Progress Note.
[2018-06-18] MEDS ORDERED: FentaNYL 100 MCG/2 ML INJECTION IVP ONE ×2 (11:00→15:37)
[2018-06-18] MEDS ORDERED: MIDAZOLAM 2mg/2ml INJECTION IVP ONE ×2 (11:00→15:37)
[2018-06-18] MEDS ORDERED: SALINE FLUSH 10ml SYRINGE IV ONE ×2 (11:00→15:37)
[2018-06-18] MEDS: CEFTRIAXONE 1 G in NS 100 ML IV SCH (14:24)
[2018-06-18] MEDS ORDERED: MAG-AL + SIM ORAL LIQUID 30ml PO PRN (14:28)
[2018-06-18] MEDS ORDERED: ACETAMINOPHEN 500 MG TABLET PO PRN (14:28)
[2018-06-18] MEDS ORDERED: LORazepam 1 MG TABLET PO PRN (14:28)
[2018-06-18] MEDS ORDERED: NITROGLYCERIN 0.4 MG SUBLINGUAL TABLET SL PRN (14:28)
[2018-06-18] MEDS ORDERED: PROMETHAZINE 25 MG INJECTION IVP PRN (14:28)
[2018-06-18] MEDS ORDERED: BISACODYL 10 MG SUPPOSITORY RECTALLY PRN (14:28)
--- NOTE | 2018-06-18 16:18 | Progress Note ---
- Date 06/18/18 Subjective: F/U: Pneumonia, acute hypoxic respiratory failure, acute diastolic/valvular heart failure Doing okay this afternoon. Feels hungry (not eating this morning due to cardioversion). No skin pain from cardioversion. Unfortunately, not successful. Breathing fair-still some cough; was on RA this am, but back on O2 this afternoon. Strength fair-not able to be up much due to the procedures. Pt encourage about working more with therapy. After conversation with this daughter and myself, is leaning more towards skill care at discharge to improve his strength before he returns to home independent living. Objective Vital signs: Temperature 96.7 F L 06/18/18 14:00 Pulse Rate 96 06/18/18 14:35 Respiratory Rate 22 06/18/18 14:35 Blood Pressure 121/61 06/18/18 14:35 Pulse Oximetry 97 06/18/18 14:35 Rhythm: Atrial Fibrillation with Normal Ventricular Rate Height/Weight/BMI: Height 1.88 m Weight 110.8 kg Body Mass Index 29.3 - Constitutional Present: well nourished, well developed, obese, cooperative - Routine HEENT Exam Head: Present: normocephalic, atraumatic Eye: Present: EOMI, PERRL, normal accommodation ENT: Present: mucous membranes moist - Routine Respiratory Exam Present: decreased breath sounds, crackles (faint). Absent: respiratory distress - Routine Cardiovascular Exam Present: irregular rhythm, irregularly irregular - Routine Abdominal Exam Present: soft, normoactive bowel sounds, non distended, non tender - Routine Extremities Exam Present: no edema. Absent: cyanosis, clubbing - Routine Musculoskeletal Exam Musculoskeletal: Present: no clubbing or cyanosis - Routine Skin Exam Present: dry, warm - Routine Neurological Exam Present: alert, oriented X3, CN II-XII intact, moving all extremities, vision grossly intact, hearing grossly intact, normal speech. Absent: normal reflexes , altered mental status - Routine Psychiatric Exam Present: normal affect, normal thought process, cooperative Results - Labs CBC & Chem 7: 06/18/18 03:55 06/18/18 03:55 Microbiology Results: Microbiology 06/11/18 18:03 Peripheral/Iv Start Blood Culture - Final No Growth After 5 Days 06/11/18 17:51 Peripheral/Iv Start Blood Culture - Final No Growth After 5 Days 06/11/18 09:26 Sputum, Expectorated Gram Stain - Final 06/11/18 09:26 Sputum, Expectorated Sputum Culture - Final Haemophilus influenzae Normal Respiratory Malini 06/11/18 17:27 Urine Legionella Urinary Antigen - Final 06/11/18 17:27 Urine Streptococcus pneumoniae Antigen (M - Final Assessment and Plan (1) Severe sepsis Current visit: Yes Status: Acute (2) Pneumonia Current visit: Yes Status: Acute Assessment and Plan: Impression Sepsis - severe 1. CAP 2. Leukocytosis, 3. Bandemia, 4. Tachycardia, 5. Tachypnea, 6. Lactic acidosis Community acquired pneumonia - Haemophilus influenza Acute hypoxic respiratory failure Hypokalemia (POA) Pulmonary edema Acute congestive heart failure-valvular Non-ST elevation MD - Type II MD Aortic stenosis - moderate severe Elevated LFTs Atrial fibrillation, chronic Anticoagulation on warfarin Hypertension Presbyesophagus GERD Plan SIRISHA/Cardioversion attempted today, but patient not able to convert to sinus. Amiodarone discontinued and cardiology working on rate control. Continue with ceftriaxone. Day 8 of antibiotics for Haemophilus influenza pneumonia. Prednisone at 40mg (Day #1). O2 needs with decrease - on RA this morning, but O2 needed post cardioversion; wean as able. Lasix decreased to 40mg po daily. Creatinine 1.0 with potassium 4.0. INR decreased to 2.40. Will give 2.5mg warfarin today. Will discontinue Larios cath in am. Bladder retraining has been occurring. Patient working with therapy to improve functional status. Nursing to help ambulate TID. With encouragement from his daughter and myself, patient is leaning towards Skilled care at time of discharge. Medically stable for transfer to tele floor for continuation of care. Recheck CBC in am due to resolving sepsis and pneumonia. Will repeat BMP in am due to medication use. Case discussed with CCU nursing and pt's daughter. Time spent with pt care 25 minutes. DVT Prophylaxis: SCD's, Coumadin GI Prophylaxis: Omeprazole Resuscitation Status: Full Code - Time spent with patient Time with patient PN: 25 minutes - Physician Narrative Physician: Leo Scott MD Narrative: Date: 06/18/18 Time: 1615 Hospital Course Summary Disclaimer: The visit summary below is not to be considered part of the above Progress Note. Hospital Course: Impression Sepsis, sepsis 1. CAP 2. Leukocytosis, 3. Bandemia, 4. Tachycardia, 5. Tachypnea Community acquired pneumonia Hypoxia Requiring oxygen Hypokalemia- POA Elevated LFTs Tachycardia History of atrial fibrillation Anticoagulation on warfarin Hypertension presbyesophagus GERD Plan 06/11/18 Admit to inpatient status under the care of Dr. Urbina for sepsis and pneumonia. Will continue on IV Rocephin and IV Azithromycin for pulmonary coverage. Sputum cultures pending. will repeat a venous lactate as the last one did trend up Continue on scheduled DuoNeb breathing treatments 4 times a day. Currently on 2 liters of oxygen by nasal cannula Consultation placed to speech therapy given question for dysphagia. Recent Vomiting, hx of Presbyesophagus Replace oral potassium and monitor Home antihypertensives remain on hold at time of admission given sepsis This patient on cardiac telemetry. Given irregular heartbeat and known history of atrial fibrillation SCDs to bilateral lower extremity for DVT prophylaxis. Check CMP tomorrow morning to follow elevated LFTs Consultation with PT and OT, Given patient's weakness secondary to acute illness. Addendum: Progressive deterioration in respiratory status through the day prompted switching from ceftriaxone to Zosyn for broader coverage and anaerobic coverage. Later transferred to ICU and diuresis initiated due to concern that he was becoming volume overloaded. Echo ordered for a.m. 06/12/18 Converted from ceftriaxone to Zosyn yesterday evening for broader coverage and anaerobic coverage given known history of presbyesophagus and risk of aspiration. Azithromycin continued for atypical coverage. Respiratory viral panel negative, urine antigens pending as is sputum culture. Afebrile overnight, appears clinically improved this morning overall. Continue aggressive breathing treatments and Solu-Medrol for additional 24 hours after which will begin tapering. Discussed with Venita to be initiated. Volume overloaded with development of acute congestive heart failure and component of pulmonary edema following volume replacement yesterday; now known to have moderately severe aortic stenosis by echo this morning. Cardiology consulted. Continue diuresis initiated yesterday evening. Blood pressure improved from yesterday, no recurrent "spells". Ongoing potassium replacement. Resolution of abnormal liver enzymes. 06/13/18 Patient reports clinical improvement, afebrile, decreasing cough and improved exertional tolerance. Continue Zosyn; complete 3 days azithromycin today. Sputum culture/blood cultures pending. Chest x-ray in a.m. White count climbing but no sign of worsening infection; likely due to steroids. Begin titrating steroid dose; continue breathing treatments and Acapella with treatments. Diuresed well yesterday, now has net negative fluid balance compared to admission. Stable cardiac rhythm, persistent low-grade tachycardia, metoprolol dose increased by cardiology for improved rate control. INR remains elevated, low-dose vitamin K given to prevent further climb and anticipate stabilization as oral intake improves and following discontinuation of azithromycin. Mental status clearing, appears to in the evening-continue to monitor. Requires ongoing potassium supplementation-recheck potassium later today to determine if additional potassium needed. 06/14/18 Continued clinical improvement, partial clearing on chest x-ray. With identification of Haemophilus influenza will resume ceftriaxone and discontinue Zosyn. Continue to monitor leukocytosis with change in antibiotics and as steroids tapered. If doing well tomorrow will convert prednisone. Heart rate improving although tachycardic with minimal activity. Metoprolol increased yesterday BUN/creatinine up slightly today-Lasix decreased to daily. Potassium is stabilized, decrease potassium supplement in conjunction with decreased diuresis. Valvular heart disease present-aortic stenosis not adequately visualized on transthoracic study -anticipate SIRISHA in the near future with left heart catheter. Mental status significantly improved from first 2 days in the hospital. INR down slightly today but remains super-therapeutic, warfarin remains on hold. 06/15/18 Continued progress, day 5 of antibiotics for Haemophilus influenza pneumonia. Afebrile, white count improving as is oxygen demand. Convert to prednisone po. Continue diuresis with Lasix daily; anticipate SIRISHA and left heart catheter in near future. Heart rate relatively well controlled, intermittent tachycardia-primarily with activities. Blood pressure stable. Fasting blood sugars modestly elevated-A1c in a.m. Loose stools described today, C. difficile PCR will be checked. 06/16/18 Continue with ceftriaxone. Day 6 of antibiotics for Haemophilus influenza pneumonia. Prednisone at 60mg (Day #2). Lasix increased to 40mg IV q8 hours to help motivate fluid. Creatinine stable at 0.8. Metoprolol increase to 100mg BID by cardiology to help heart rate. Anticipate SIRISHA and left heart catheter in near future. A1c with slight elevation at 6.4%, C. diff PCR negative. Tolerating therapy to improve functional status. Likely need skilled care post discharge. INR improving but remains super-therapeutic at 3.51, warfarin remains on hold. Possible transfer to medical floor - would continue CCU care if SIRISHA planned in near future. 06/17/18 SIRISHA/Cardioversion attempted today, but patient not able to convert to sinus. Amiodarone drip started by cardiology and plans reattempt tomorrow. Continue with ceftriaxone. Day 7 of antibiotics for Haemophilus influenza pneumonia. Prednisone at 60mg (Day #3), will decrease to 40mg tomorrow. Chest X-ray without change. O2 needs at 3L currently. Lasix decreased to 40mg IV daily. Creatinine stable at 0.8. Potassium 4.2 with Mg 2.2. INR decreased to 2.71. Will continue with CCU care and monitoring as repeat bedside cardioversion planned for tomorrow. 06/18/18 SIRISHA/Cardioversion attempted today, but patient not able to convert to sinus. Amiodarone discontinued and cardiology working on rate control. Continue with ceftriaxone. Day 8 of antibiotics for Haemophilus influenza pneumonia. Prednisone at 40mg (Day #1). O2 needs with decrease - on RA this morning, but O2 needed post cardioversion; wean as able. Lasix decreased to 40mg po daily. Creatinine 1.0 with potassium 4.0. INR decreased to 2.40. Will give 2.5mg warfarin today. Will discontinue Larios cath in am. Bladder retraining has been occurring. Patient working with therapy to improve functional status. Nursing to help ambulate TID. With encouragement from his daughter and myself, patient is leaning towards Skilled care at time of discharge. Medically stable for transfer to tele floor for continuation of care.
[2018-06-18] MEDS: GUAIFENESIN/D-METHORPHAN 600mg/30mg TABLET PO SCH ×2 (16:21→21:14)
--- NOTE | 2018-06-18 16:38 | DC Cardioversion ---
DATE OF PROCEDURE June 18, 2018 INDICATIONS The patient is a 78-year-old gentleman with atrial flutter and atrial fibrillation who had a cardioversion yesterday, however, he did not convert to sinus and therefore he was started on amiodarone and was referred for repeat cardioversion on amiodarone. INFORMED CONSENT Informed consent was obtained after explaining the procedure and the potential risks to the patient who agreed to proceed with the procedure. PROCEDURE 1. DC cardioversion. Conscious sedation was performed using Versed and fentanyl. Anterior-posterior Zoll pads were applied. 360 joules of energy was delivered in synchronized manner and patient converted from atrial fibrillation to sinus rhythm. He tolerated the procedure well with no complications. IMPRESSION 1. Successful DC cardioversion of atrial fibrillation to sinus rhythm. Will keep him on anticoagulation and continue antiarrhythmics. VICTORINA
[2018-06-18] MEDS ORDERED: WARFARIN 2.5 MG TABLET PO ONE (19:36)
[2018-06-18] MEDS: CITALOPRAM 20 MG TABLET PO SCH (21:14)
[2018-06-18] MEDS: SIMVASTATIN 40 MG TABLET PO SCH (21:14)
[2018-06-18] MEDS: EZETIMIBE 10 MG TABLET PO SCH (21:15)
[2018-06-18] MEDS: LATANOPROST 0.005% EYE DROPS 2.5ml EACH EYE SCH (21:15)
[2018-06-18] MEDS: SALINE FLUSH 10ml SYRINGE IVF PRN (21:20)
[2018-06-19] MEDS: OMEPRAZOLE 20 MG CAPSULE PO SCH (05:52)
--- NOTE | 2018-06-19 08:44 | XRay Report ---
INDICATION: F/U PROCEDURE: CHEST 2-VIEWS UPRIGHT (PA & LAT) Encounter: Initial COMPARISON: June 17, 2018 FINDINGS: Right PICC line remains in place. Slowly improving aeration of the lungs with decreasing right-sided infiltrates. No new or worsening airspace consolidation. No pneumothorax or significant pleural fluid. Heart size and mediastinal contours are stable. Pulmonary vascularity is less congested. Impression: Improving appearance of the chest. .
[2018-06-19] MEDS: PredniSONE 20 MG TABLET PO SCH (09:18)
[2018-06-19] MEDS: GUAIFENESIN/D-METHORPHAN 600mg/30mg TABLET PO SCH ×2 (09:19→21:06)
[2018-06-19] MEDS: FUROSEMIDE 40 MG TABLET PO SCH (09:19)
[2018-06-19] MEDS: LISINOPRIL 10 MG TABLET PO SCH (09:19)
--- NOTE | 2018-06-19 10:22 | Cardiology Progress Note ---
<JenniferWaleska K - Last Filed: 06/19/18 10:32> Subjective Principal diagnosis: dyspnea Interval history: Anthony is seen in follow up of , A Fib with RVR. He denies chest pain, palpitations, dizziness or nausea. Focusing on rate control and anticoagulation. HR remains well controlled on current medication regimen. Pt considering transfer to SNU at discharge for further strengthening prior to returning home. Will have patient follow up as an outpatient to discuss possible ablation in the near future. Exam Vital signs: Temperature 96.9 F 06/19/18 07:35 Pulse Rate 91 06/19/18 08:00 Respiratory Rate 18 06/19/18 07:35 Blood Pressure 117/68 06/19/18 07:35 Pulse Oximetry 93 06/19/18 07:35 Inpatient Medications: Generic Name Dose Route Start Last Admin Trade Name Freq PRN Reason Stop Dose Admin Acetaminophen 650 mg 06/11/18 19:45 06/15/18 21:05 Tylenol PO 650 mg QID PRN Administration Discomfort Acetaminophen 325 - 650 mg 06/18/18 14:28 Tylenol PO Q5H PRN Discomfort Hydrocodone Bitart/Acetaminophen 1 tab 06/10/18 22:27 Bodega 5/325 PO Q6H PRN Pain Al Hydroxide/Mg Hydroxide 30 ml 06/17/18 15:20 Maalox Plus PO Q3-4HR PRN Indigestion Albuterol Sulfate 5 mg 06/12/18 11:20 Proventil Neb (0.5%) AEROSOL Q2H PRN Albuterol/Ipratropium 3 ml 06/10/18 23:36 06/19/18 07:19 Duoneb AEROSOL 3 ml Q4H PRN Administration Albuterol/Ipratropium 3 ml 06/15/18 07:00 06/18/18 20:17 Duoneb AEROSOL 3 ml RTTID JOSE A Administration Bisacodyl 10 mg 06/17/18 15:20 Dulcolax RECTALLY DAILY PRN Constipation Cholecalciferol 1,000 unit 06/11/18 09:00 06/19/18 09:19 Vit. D-3 PO 1,000 unit DAILY JOSE A Administration Citalopram Hydrobromide 20 mg 06/11/18 21:00 06/18/18 21:14 Celexa PO 20 mg HS JOSE A Administration Ezetimibe 10 mg 06/11/18 21:00 06/18/18 21:15 Zetia PO 10 mg HS JOSE A Administration Furosemide 40 mg 06/19/18 09:00 06/19/18 09:19 Lasix 40 Mg Tab PO 40 mg DAILY JOSE A Administration Guaifenesin 400 mg 06/11/18 10:52 06/15/18 23:24 Robitussin Liq PO 200 mg Q6H PRN Administration Cough /Congestion Guaifenesin/Dextromethorphan 1 tab 06/16/18 11:40 06/19/18 09:19 Mucinex Dm PO 1 tab BID JOSE A Administration Ceftriaxone Sodium 1 g/ Sodium 100 mls @ 200 mls/hr 06/14/18 14:00 06/18/18 14:24 Chloride IV 200 mls/hr Q24H JOSE A Administration Latanoprost 1 drops 06/11/18 21:00 06/18/18 21:15 Xalatan EACH EYE 1 drops HS JOSE A Administration Lisinopril 10 mg 06/12/18 13:30 06/19/18 09:19 Prinivil PO 10 mg DAILY JOSE A Administration Loperamide HCl 2 mg 06/15/18 11:42 06/15/18 12:19 Imodium PO 2 mg PRN PRN Administration Protocol Lorazepam 1 mg 06/12/18 18:05 Ativan Inj IVP Q4H PRN Magnesium Hydroxide 30 ml 06/17/18 15:20 Mom PO DAILY PRN Constipation Menthol 1 lozenge 06/16/18 11:40 Ricola Sf MM PRN PRN Cough Metoprolol Tartrate 5 mg 06/11/18 23:09 06/13/18 16:05 Lopressor IVP 5 mg Q6H PRN Administration Metoprolol Tartrate 100 mg 06/16/18 17:30 06/19/18 09:18 Lopressor PO 100 mg BIDWM JOSE A Administration Nitroglycerin 0.4 mg 06/18/18 14:28 Nitrostat SL Q5MIN3 PRN Chest pain Omeprazole 20 mg 06/11/18 06:30 06/19/18 05:52 Prilosec PO 20 mg ACB JOSE A Administration Ondansetron HCl 4 mg 06/10/18 22:27 Zofran IVP Q6H PRN Nausea &/or vomiting Potassium Chloride 20 meq 06/15/18 08:00 06/19/18 09:18 K-Dur 20 Meq Tablet PO 20 meq WB JOSE A Administration Prednisone 40 mg 06/18/18 08:00 06/19/18 09:18 Deltasone 20 Mg PO 40 mg WB JOSE A Administration Promethazine HCl 12.5 - 25 mg 06/17/18 15:20 Phenergan Inj IVP Q6H PRN Nausea Senna/Docusate Sodium 1 tab 06/10/18 22:27 06/19/18 09:19 Senna Plus Tablet PO 1 tab BID PRN Administration Constipation Simvastatin 40 mg 06/11/18 21:00 06/18/18 21:14 Zocor PO 40 mg HS JOSE A Administration Sodium Chloride 10 - 80 ml 06/10/18 20:50 06/18/18 21:20 Iv Flush IVF 20 ml PRN PRN Administration Flushing Sodium Chloride 500 ml 06/12/18 20:08 06/16/18 14:08 Normal Saline IV 500 ml PRN PRN Administration Discontinued Medications Generic Name Dose Route Start Last Admin Trade Name Freq PRN Reason Stop Dose Admin Acetaminophen 325 - 650 mg 06/10/18 22:27 Tylenol KS Q5H PRN Pain Acetaminophen 325 - 650 mg 06/17/18 15:20 Tylenol PO Q5H PRN Discomfort Hydrocodone Bitart/Acetaminophen 1 tab 06/10/18 21:56 06/10/18 21:58 Bodega 5/325 PO 06/10/18 21:57 1 tab O ONE Administration Al Hydroxide/Mg Hydroxide 30 ml 06/18/18 14:28 Maalox Plus PO Q3-4HR PRN Indigestion Albuterol Sulfate 2.5 mg 06/10/18 20:52 06/10/18 20:58 Proventil Neb (0.083%) AEROSOL 06/10/18 20:53 2.5 mg O ONE Administration Albuterol Sulfate 5 mg 06/10/18 23:52 Proventil Neb (0.5%) AEROSOL RTQID PRN Albuterol/Ipratropium 3 ml 06/11/18 07:00 06/11/18 08:57 Duoneb AEROSOL 3 ml RTBID JOSE A Administration Albuterol/Ipratropium 3 ml 06/11/18 11:00 06/14/18 19:01 Duoneb AEROSOL 3 ml RTQID JOSE A Administration Amlodipine Besylate 5 mg 06/11/18 09:00 06/17/18 08:35 Norvasc PO 5 mg DAILY JOSE A Administration Azithromycin 500 mg 06/10/18 21:47 06/10/18 21:55 Zithromax PO 06/10/18 21:48 Not Given O ONE Bisacodyl 10 mg 06/18/18 14:28 Dulcolax RECTALLY DAILY PRN Constipation Diltiazem HCl 180 mg 06/17/18 09:00 06/17/18 08:37 Cardizem Cd 180 Mg PO 180 mg DAILY JOSE A Administration Enoxaparin Sodium 40 mg 06/11/18 09:00 06/11/18 09:07 Lovenox SQ 40 mg DAILY JOSE A Administration Furosemide 40 mg 06/11/18 21:19 06/11/18 21:22 Lasix 40 Mg/4 Ml IVP 06/11/18 21:20 40 mg O ONE Administration Furosemide 40 mg 06/12/18 08:31 06/12/18 10:10 Lasix 40 Mg/4 Ml IVP 06/12/18 08:32 40 mg ONE TIME ONE Administration Furosemide 40 mg 06/12/18 17:00 06/14/18 20:58 Lasix 40 Mg/4 Ml IVP Not Given Q8HR JOSE A Furosemide 40 mg 06/14/18 21:00 Lasix 40 Mg/4 Ml IVP Q12HR JOSE A Furosemide 40 mg 06/15/18 09:00 06/16/18 08:16 Lasix 40 Mg/4 Ml IVP 40 mg DAILY JOSE A Administration Furosemide 40 mg 06/16/18 17:00 06/16/18 17:03 Lasix 40 Mg/4 Ml IVP 40 mg Q8HR JOSE A Administration Furosemide 40 mg 06/17/18 09:00 06/18/18 08:27 Lasix 40 Mg/4 Ml IVP 40 mg DAILY JOSE A Administration Haloperidol Lactate 1 mg 06/12/18 17:24 06/12/18 17:15 Haldol IVP 06/13/18 00:00 1 mg Q4H PRN Administration Sodium Chloride 1,000 mls @ 999.9 mls/hr 06/10/18 20:51 06/10/18 21:55 Normal Saline IV 06/10/18 21:50 Infused .Q1H ONE Infusion Azithromycin 500 mg/ Sodium 250 mls @ 167 mls/hr 06/10/18 21:49 06/10/18 21: 55 Chloride IV 06/10/18 23:18 167 mls/hr O ONE Administration Sodium Chloride 1,000 mls @ 100 mls/hr 06/10/18 22:27 06/11/18 21:03 Normal Saline IV Infused .Q10H JOSE A Infusion Azithromycin 500 mg/ Sodium 250 mls @ 167 mls/hr 06/11/18 22:00 06/13/18 00: 00 Chloride IV 06/13/18 21:59 Infused Q24H JOSE A Infusion Ceftriaxone Sodium 1 g/ Sodium 100 mls @ 200 mls/hr 06/11/18 22:00 Chloride IV Q24H JOSE A Sodium Chloride 1,000 mls @ 250 mls/hr 06/11/18 14:00 06/11/18 19:34 Normal Saline IV Not Given .Q4H JOSE A Piperacillin Sod/Tazobactam 100 mls @ 200 mls/hr 06/11/18 19:45 06/14/18 14: 00 Sod 3.375 gm/ Sodium Chloride IV Infused Q6H JOSE A Infusion Amiodarone HCl 150 mg/ Sodium 103 mls @ 618 mls/hr 06/17/18 15:26 06/17/18 16 :08 Chloride IV 06/17/18 15:35 Infused O ONE Infusion Amiodarone HCl 450 mg/ Sodium 250 mls @ 33.33 mls/hr 06/17/18 15:28 06/17/18 22:28 Chloride IV 06/17/18 21:28 Infused .Q7H31M JOSE A Infusion 1 MG/MIN Amiodarone HCl 900 mg/ Sodium 500 mls @ 16.66 mls/hr 06/17/18 21:30 06/18/18 14:00 Chloride IV 0.49 mg/min .Q24H JOSE A 16.66 mls/hr Infusion 0.5 MG/MIN Sodium Chloride 250 mls @ 500 mls/hr 06/18/18 18:14 06/18/18 19:00 Normal Saline IV 06/18/18 18:43 Infused .Q30M ONE Infusion Lisinopril 10 mg 06/11/18 09:00 Prinivil PO DAILY JOSE A Lorazepam 0.5 mg 06/11/18 14:04 06/12/18 17:03 Ativan Inj IVP 0.5 mg Q4H PRN Administration Lorazepam 0.5 - 1 mg 06/17/18 15:20 Ativan PO Q4H PRN Lorazepam 0.5 - 1 mg 06/17/18 15:20 Ativan Inj IVP Q4H PRN Lorazepam 0.5 - 1 mg 06/18/18 14:28 Ativan Inj IVP Q4H PRN Lorazepam 0.5 - 1 mg 06/18/18 14:28 Ativan PO Q4H PRN Magnesium Hydroxide 30 ml 06/18/18 14:28 Mom PO DAILY PRN Constipation Methylprednisolone Sodium Succinate 125 mg 06/11/18 17:00 06/13/18 08:36 Solu-Medrol IVP 125 mg Q8HR JOSE A Administration Methylprednisolone Sodium Succinate 62.5 mg 06/13/18 17:00 06/15/18 08:55 Solu-Medrol IVP 62.5 mg Q8HR JOSE A Administration Metoclopramide HCl 5 - 10 mg 06/17/18 15:20 Reglan IVP Q6H PRN Nausea &/or vomiting Metoprolol Tartrate 50 mg 06/11/18 09:00 Lopressor PO BID JOSE A Metoprolol Tartrate 50 mg 06/11/18 11:49 06/13/18 08:38 Lopressor PO 50 mg BIDWM [facility] Administration Metoprolol Tartrate 25 mg 06/13/18 12:14 06/13/18 12:24 Lopressor PO 06/13/18 12:15 25 mg O ONE Administration Metoprolol Tartrate 75 mg 06/13/18 17:30 06/16/18 08:18 Lopressor PO 75 mg BIDWM [facility] Administration Nitroglycerin 0.4 mg 06/17/18 15:20 Nitrostat SL Q5MIN3 PRN Chest pain Non-Formulary Medication 1,000 unit 06/11/18 21:00 Cholecalciferol (Vitamin D3) [Vitamin D3] PO HS [facility] Pharmacy Consult 1 each 06/10/18 23:12 06/11/18 12:00 Pharmacy Consult - Fall Risk 06/10/18 23:13 1 each ONE TIME ONE Administration Pharmacy Consult each 06/12/18 00:46 Pharmacy Consult - Fall Risk 06/12/18 00:47 ONE TIME ONE Phytonadione 0.5 mg 06/13/18 12:00 06/13/18 12:23 Vitamin K Oral Liq PO 06/13/18 12:01 0.5 mg O ONE Administration Potassium Chloride 40 meq 06/11/18 11:55 06/11/18 12:03 K-Dur 20 Meq Tablet PO 06/11/18 11:56 40 meq O ONE Administration Potassium Chloride 40 meq 06/12/18 11:21 06/12/18 15:39 K-Dur 20 Meq Tablet PO 06/12/18 11:22 40 meq ONCE ONE Administration Potassium Chloride 20 meq 06/12/18 12:00 06/14/18 13:12 K-Dur 20 Meq Tablet PO 20 meq TIDWM [facility] Administration Potassium Chloride 40 meq 06/13/18 10:29 06/13/18 11:20 K-Dur 20 Meq Tablet PO 06/13/18 10:30 40 meq O ONE Administration Potassium Chloride 20 meq 06/13/18 17:15 06/13/18 17:52 K-Dur 20 Meq Tablet PO 06/13/18 17:16 20 meq ONCE ONE Administration Potassium Chloride 20 meq 06/14/18 14:13 06/14/18 17:45 K-Dur 20 Meq Tablet PO 06/14/18 14:14 20 meq O ONE Administration Prednisone 40 mg 06/11/18 15:39 Deltasone 20 Mg PO 06/11/18 15:40 O ONE Prednisone 40 mg 06/12/18 08:00 Deltasone 20 Mg PO 06/16/18 07:59 WB [facility] Prednisone 60 mg 06/15/18 14:23 06/17/18 08:35 Deltasone 20 Mg PO 60 mg WB [facility] Administration Promethazine HCl 12.5 - 25 mg 06/18/18 14:28 Phenergan Inj IVP Q6H PRN Nausea Warfarin Sodium 2.5 mg 06/11/18 12:30 06/12/18 15:39 Coumadin PO 2.5 mg [id number] [facility] Administration Warfarin Sodium 5 mg 06/13/18 12:00 Coumadin PO [email or web address] [facility] Warfarin Sodium 1 each 06/11/18 11:45 06/11/18 12:04 Pharmacy Consult - Warfarin 06/11/18 11:46 1 each O ONE Administration Warfarin Sodium 0 06/11/18 12:00 Coumadin Protocol NOTE JOSE A Warfarin Sodium 2.5 mg 06/18/18 19:36 06/18/18 21:13 Coumadin PO 06/18/18 19:37 2.5 mg O ONE Administration - Constitutional no acute distress, well nourished, well developed, cooperative - Routine HEENT Exam Head: Present: normocephalic, atraumatic Eye: Present: EOMI, PERRL ENT: Present: mucous membranes moist - Routine Neck Exam Present: supple, normal carotid upstroke, trachea midline. Absent: JVD, carotid bruit - Routine Chest/Breast/Axilla Exam Chest wall: Absent: tenderness - Routine Respiratory Exam Absent: accessory muscle use, dyspnea, rhonchi, stridor, wheezes - Routine Cardiovascular Exam Present: irregular rhythm. Absent: JVD - Routine Abdominal Exam Present: soft, normoactive bowel sounds, non distended, non tender - Routine Extremities Exam Present: no edema, pulses intact, normal capillary refill. Absent: cyanosis, clubbing - Routine Skin Exam Present: intact, dry, warm, wounds, rash. Absent: cyanosis, erythema - Routine Neurological Exam Present: alert, oriented X3, CN II-XII intact, moving all extremities, normal speech - Routine Psychiatric Exam Present: normal affect, cooperative - Urinary Catheter Management Urethral Cath placed during this visit: yes, but has since been removed by the nurse Urethral indwelling: No Insertion date: 06/11/18 Insertion time: 17:25 Removal date: 06/12/18 Removal time: 02:10 Coude Cath placed during this visit: yes, but has since been removed by the nurse Insertion date: 06/12/18 Insertion time: 02:15 Removal date: 06/19/18 Removal time: 05:55 Results 06/19/18 04:45 06/19/18 04:45 CBC 06/19/18 Range/Units 04:45 WBC 16.0 H (4.5-11.0) T/MM3 RBC 4.17 L (4.50-5.90) M/MM3 Hgb 12.9 L (13.5-17.5) GM/DL Hct 39.2 L (41-53) % Plt Count 215 (130-400) T/MM3 Neut # (Auto) Not performed Lymph # (Auto) Not performed [place] # (Auto) Not performed Eos # (Auto) Not performed Baso # (Auto) Not performed Comprehensive Metabolic Panel 06/19/18 Range/Units 04:45 Sodium 136 (136-146) MEQ/L Potassium 4.2 (3.6-5) MEQ/L Chloride 101 (98-107) MEQ/L Carbon Dioxide 28 (22-30) MEQ/L BUN 38.0 H (9-20) MG/DL Creatinine 1.0 (0.8-1.5) mg/dL Glucose 104 (75-110) MG/DL Calcium 8.3 L (8.4-10.2) MG/DL Intake and Output 06/18/18 06/19/18 06/19/18 22:59 06:59 14:59 Intake Total 550 / 550 600 / 600 240 / 240 Output Total 190 / 190 Balance 360 / 360 600 / 600 240 / 240 Intake: IV 250 / 250 NS 500ml 250 ml @ 500 mls/hr IV 250 / 250 .Q30M ONE Rx#:[id number] Oral 300 / 300 600 / 600 240 / 240 Output: Urine Amount (Catheter) 190 / 190 Other: Urine Appearance Clear Urine Color Tea Colored Urine Odor Strong Weight 107.4 kg Patient Weight 06/20/18 06:59 Weight 107.4 kg - Imaging and Cardiology Echo: report reviewed EKG results: report reviewed Imaging & Cardiology Narrative: 06/19/18 10:22 XRay Report Signed Patient: Anthony Kilgore MR#: [id number] : 1940 Age/Sex: 78 / M ADM Date: 06/10/18 Loc: MED 137-P DIS Date: = = = = = = = = = = = = = = = = = = = = = = = = = = = = = = = = = = = = = = = = = = = = = = = = = = = = = = = = = = = Date of Exam: 06/19/18 Ordering Provider: Leo Scott MD Type of Exam(s): XR chest 2V Reason for Exam(s): F/U INDICATION: F/U PROCEDURE: CHEST 2-VIEWS UPRIGHT (PA & LAT) Encounter: Initial COMPARISON: June 17, 2018 FINDINGS: Right PICC line remains in place. Slowly improving aeration of the lungs with decreasing right-sided infiltrates. No new or worsening airspace consolidation. No pneumothorax or significant pleural fluid. Heart size and mediastinal contours are stable. Pulmonary vascularity is less congested. Impression: Improving appearance of the chest. . - EKG Interpretation EKG: no acute changes EKG shows: atrial fibrillation Assessment and Plan - Assessment and Plan (1) Sepsis Status: Acute (2) Paroxysmal A-fib Status: Chronic (3) HTN (hypertension) Status: Chronic (4) Pneumonia Status: Acute (5) Pulmonary edema Status: Acute (6) Mixed hyperlipidemia Status: Chronic (7) NSTEMI (non-ST elevated myocardial infarction) Status: Acute (8) Severe aortic stenosis Status: Acute (9) Supratherapeutic INR Status: Acute (10) CHF (congestive heart failure) Status: Acute (11) Coronary artery disease Status: Acute - Assessment and Plan - Assessment and Plan 06/19/2018 STABLE FOR DISCHARGE FROM CARDIAC STANDPOINT FOLLOW UP WITH DR. ROLLINS IN 2-4 WEEKS Severe aortic stenosis Current visit: Yes Status: Acute - SIRISHA: Mild aortic stenosis with a valve area of 1.47-1.67cm2. - Continue Lasix 40 mg PO daily - monitor renal and electrolytes NSTEMI (non-ST elevated myocardial infarction) Current visit: Yes Status: Acute - Type II, secondary to fluid overload, pneumonia - Troponin trending down: 1) 0.106, 2) 0.372, 3) 0.220 - 06/11/18 EKG: A Fib HR 83, lateral [place], indeterminate age, ST depression in V6 - Continue BB, Statin, anticoagulated on Warfarin (INR 1.93) Pulmonary edema Current visit: Yes Status: Acute - Lasix 40mg PO daily - Potassium 20meq po daily - monitor renal and electrolytes Sepsis Current visit: Yes Status: Acute - Per hospitalist Pneumonia Current visit: Yes Status: Acute - per hospitalist Paroxysmal A-fib Current visit: Yes Status: Chronic - Rate well controlled, continue metoprolol - INR 1.93, chronic anticoagulation on warfarin - Monitor lytes. Keep K >4, Mg >2 - Unsuccessful attempts at cardioversion - Will focus on rate control and anticoagulation - Plan outpatient follow up and referral to EP for ablation sometime in the near future. HTN (hypertension) Current visit: Yes Status: Chronic - Continue Metoprolol, lisinopril, and lasix Mixed hyperlipidemia Current visit: Yes Status: Chronic - Continue Statin therapy Thank you for allowing us to participate in the care of this patient, we will follow along with you. Hospital Course Summary Disclaimer: The visit summary below is not to be considered part of the above Progress Note. Hospital Course: Impression Sepsis, sepsis 1. CAP 2. Leukocytosis, 3. Bandemia, 4. Tachycardia, 5. Tachypnea Community acquired pneumonia Hypoxia Requiring oxygen Hypokalemia- POA Elevated LFTs Tachycardia History of atrial fibrillation Anticoagulation on warfarin Hypertension presbyesophagus GERD Plan 06/11/18 Admit to inpatient status under the care of Dr. Urbina for sepsis and pneumonia. Will continue on IV Rocephin and IV Azithromycin for pulmonary coverage. Sputum cultures pending. will repeat a venous lactate as the last one did trend up Continue on scheduled DuoNeb breathing treatments 4 times a day. Currently on 2 liters of oxygen by nasal cannula Consultation placed to speech therapy given question for dysphagia. Recent Vomiting, hx of Presbyesophagus Replace oral potassium and monitor Home antihypertensives remain on hold at time of admission given sepsis This patient on cardiac telemetry. Given irregular heartbeat and known history of atrial fibrillation SCDs to bilateral lower extremity for DVT prophylaxis. Check CMP tomorrow morning to follow elevated LFTs Consultation with PT and OT, Given patient's weakness secondary to acute illness. Addendum: Progressive deterioration in respiratory status through the day prompted switching from ceftriaxone to Zosyn for broader coverage and anaerobic coverage. Later transferred to ICU and diuresis initiated due to concern that he was becoming volume overloaded. Echo ordered for a.m. 06/12/18 Converted from ceftriaxone to Zosyn yesterday evening for broader coverage and anaerobic coverage given known history of presbyesophagus and risk of aspiration. Azithromycin continued for atypical coverage. Respiratory viral panel negative, urine antigens pending as is sputum culture. Afebrile overnight, appears clinically improved this morning overall. Continue aggressive breathing treatments and Solu-Medrol for additional 24 hours after which will begin tapering. Discussed with RT-Acapella to be initiated. Volume overloaded with development of acute congestive heart failure and component of pulmonary edema following volume replacement yesterday; now known to have moderately severe aortic stenosis by echo this morning. Cardiology consulted. Continue diuresis initiated yesterday evening. Blood pressure improved from yesterday, no recurrent "spells". Ongoing potassium replacement. Resolution of abnormal liver enzymes. 06/13/18 Patient reports clinical improvement, afebrile, decreasing cough and improved exertional tolerance. Continue Zosyn; complete 3 days azithromycin today. Sputum culture/blood cultures pending. Chest x-ray in a.m. White count climbing but no sign of worsening infection; likely due to steroids. Begin titrating steroid dose; continue breathing treatments and Acapella with treatments. Diuresed well yesterday, now has net negative fluid balance compared to admission. Stable cardiac rhythm, persistent low-grade tachycardia, metoprolol dose increased by cardiology for improved rate control. INR remains elevated, low-dose vitamin K given to prevent further climb and anticipate stabilization as oral intake improves and following discontinuation of azithromycin. Mental status clearing, appears to in the evening-continue to monitor. Requires ongoing potassium supplementation-recheck potassium later today to determine if additional potassium needed. 06/14/18 Continued clinical improvement, partial clearing on chest x-ray. With identification of Haemophilus influenza will resume ceftriaxone and discontinue Zosyn. Continue to monitor leukocytosis with change in antibiotics and as steroids tapered. If doing well tomorrow will convert prednisone. Heart rate improving although tachycardic with minimal activity. Metoprolol increased yesterday BUN/creatinine up slightly today-Lasix decreased to daily. Potassium is stabilized, decrease potassium supplement in conjunction with decreased diuresis. Valvular heart disease present-aortic stenosis not adequately visualized on transthoracic study -anticipate SIRISHA in the near future with left heart catheter. Mental status significantly improved from first 2 days in the hospital. INR down slightly today but remains super-therapeutic, warfarin remains on hold. 06/15/18 Continued progress, day 5 of antibiotics for Haemophilus influenza pneumonia. Afebrile, white count improving as is oxygen demand. Convert to prednisone po. Continue diuresis with Lasix daily; anticipate SIRISHA and left heart catheter in near future. Heart rate relatively well controlled, intermittent tachycardia-primarily with activities. Blood pressure stable. Fasting blood sugars modestly elevated-A1c in a.m. Loose stools described today, C. difficile PCR will be checked. 06/16/18 Continue with ceftriaxone. Day 6 of antibiotics for Haemophilus influenza pneumonia. Prednisone at 60mg (Day #2). Lasix increased to 40mg IV q8 hours to help motivate fluid. Creatinine stable at 0.8. Metoprolol increase to 100mg BID by cardiology to help heart rate. Anticipate SIRISHA and left heart catheter in near future. A1c with slight elevation at 6.4%, C. diff PCR negative. Tolerating therapy to improve functional status. Likely need skilled care post discharge. INR improving but remains super-therapeutic at 3.51, warfarin remains on hold. Possible transfer to medical floor - would continue CCU care if SIRISHA planned in near future. 06/17/18 SIRISHA/Cardioversion attempted today, but patient not able to convert to sinus. Amiodarone drip started by cardiology and plans reattempt tomorrow. Continue with ceftriaxone. Day 7 of antibiotics for Haemophilus influenza pneumonia. Prednisone at 60mg (Day #3), will decrease to 40mg tomorrow. Chest X-ray without change. O2 needs at 3L currently. Lasix decreased to 40mg IV daily. Creatinine stable at 0.8. Potassium 4.2 with Mg 2.2. INR decreased to 2.71. Will continue with CCU care and monitoring as repeat bedside cardioversion planned for tomorrow. 06/18/18 SIRISHA/Cardioversion attempted today, but patient not able to convert to sinus. Amiodarone discontinued and cardiology working on rate control. Continue with ceftriaxone. Day 8 of antibiotics for Haemophilus influenza pneumonia. Prednisone at 40mg (Day #1). O2 needs with decrease - on RA this morning, but O2 needed post cardioversion; wean as able. Lasix decreased to 40mg po daily. Creatinine 1.0 with potassium 4.0. INR decreased to 2.40. Will give 2.5mg warfarin today. Will discontinue Larios cath in am. Bladder retraining has been occurring. Patient working with therapy to improve functional status. Nursing to help ambulate TID. With encouragement from his daughter and myself, patient is leaning towards Skilled care at time of discharge. Medically stable for transfer to tele floor for continuation of care. <Braden Rollins - Last Filed: 06/27/18 16:01> Exam Vital signs: Temperature 97.2 F 06/20/18 13:58 Pulse Rate 76 06/20/18 13:58 Respiratory Rate 22 06/20/18 13:58 Blood Pressure 105/62 06/20/18 13:58 Pulse Oximetry 97 06/20/18 13:58 Inpatient Medications: Discontinued Medications Generic Name Dose Route Start Last Admin Trade Name Freq PRN Reason Stop Dose Admin Acetaminophen 325 - 650 mg 06/10/18 22:27 Tylenol [place] Q5H PRN Pain Acetaminophen 650 mg 06/11/18 19:45 06/15/18 21:05 Tylenol PO 650 mg QID PRN Administration Discomfort Acetaminophen 325 - 650 mg 06/17/18 15:20 Tylenol PO Q5H PRN Discomfort Acetaminophen 325 - 650 mg 06/18/18 14:28 Tylenol PO Q5H PRN Discomfort Hydrocodone Bitart/Acetaminophen 1 tab 06/10/18 21:56 06/10/18 21:58 Bodega 5/325 PO 06/10/18 21:57 1 tab O ONE Administration Hydrocodone Bitart/Acetaminophen 1 tab 06/10/18 22:27 Bodega 5/325 PO Q6H PRN Pain Al Hydroxide/Mg Hydroxide 30 ml 06/17/18 15:20 Maalox Plus PO Q3-4HR PRN Indigestion Al Hydroxide/Mg Hydroxide 30 ml 06/18/18 14:28 Maalox Plus PO Q3-4HR PRN Indigestion Albuterol Sulfate 2.5 mg 06/10/18 20:52 06/10/18 20:58 Proventil Neb (0.083%) AEROSOL 06/10/18 20:53 2.5 mg O ONE Administration Albuterol Sulfate 5 mg 06/10/18 23:52 Proventil Neb (0.5%) AEROSOL RTQID PRN Albuterol Sulfate 5 mg 06/12/18 11:20 Proventil Neb (0.5%) AEROSOL Q2H PRN Albuterol/Ipratropium 3 ml 06/11/18 07:00 06/11/18 08:57 Duoneb AEROSOL 3 ml RTBID JOSE A Administration Albuterol/Ipratropium 3 ml 06/10/18 23:36 06/19/18 07:19 Duoneb AEROSOL 3 ml Q4H PRN Administration Albuterol/Ipratropium 3 ml 06/11/18 11:00 06/14/18 19:01 Duoneb AEROSOL 3 ml RTQID JOSE A Administration Albuterol/Ipratropium 3 ml 06/15/18 07:00 06/18/18 20:17 Duoneb AEROSOL 3 ml RTTID JOSE A Administration Albuterol/Ipratropium 3 ml 06/19/18 19:00 06/20/18 06:49 Duoneb AEROSOL 3 ml RTBID JOSE A Administration Albuterol/Ipratropium 3 ml 06/19/18 19:00 06/19/18 19:48 Duoneb AEROSOL Not Given RTBID JOSE A Amlodipine Besylate 5 mg 06/11/18 09:00 06/17/18 08:35 Norvasc PO 5 mg DAILY JOSE A Administration Azithromycin 500 mg 06/10/18 21:47 06/10/18 21:55 Zithromax PO 06/10/18 21:48 Not Given O ONE Bisacodyl 10 mg 06/17/18 15:20 Dulcolax RECTALLY DAILY PRN Constipation Bisacodyl 10 mg 06/18/18 14:28 Dulcolax RECTALLY DAILY PRN Constipation Cholecalciferol 1,000 unit 06/11/18 09:00 06/20/18 09:14 Vit. D-3 PO 1,000 unit DAILY [facility] Administration Citalopram Hydrobromide 20 mg 06/11/18 21:00 06/19/18 21:06 Celexa PO 20 mg HS [facility] Administration Diltiazem HCl 180 mg 06/17/18 09:00 06/17/18 08:37 Cardizem Cd 180 Mg PO 180 mg DAILY [facility] Administration Ezetimibe 10 mg 06/11/18 21:00 06/19/18 21:06 Zetia PO 10 mg HS [facility] Administration Enoxaparin Sodium 40 mg 06/11/18 09:00 06/11/18 09:07 Lovenox SQ 40 mg DAILY [facility] Administration Furosemide 40 mg 06/11/18 21:19 06/11/18 21:22 Lasix 40 Mg/4 Ml IVP 06/11/18 21:20 40 mg O ONE Administration Furosemide 40 mg 06/12/18 08:31 06/12/18 10:10 Lasix 40 Mg/4 Ml IVP 06/12/18 08:32 40 mg ONE TIME ONE Administration Furosemide 40 mg 06/12/18 17:00 06/14/18 20:58 Lasix 40 Mg/4 Ml IVP Not Given Q8HR [facility] Furosemide 40 mg 06/14/18 21:00 Lasix 40 Mg/4 Ml IVP Q12HR JOSE A Furosemide 40 mg 06/15/18 09:00 06/16/18 08:16 Lasix 40 Mg/4 Ml IVP 40 mg DAILY JOSE A Administration Furosemide 40 mg 06/16/18 17:00 06/16/18 17:03 Lasix 40 Mg/4 Ml IVP 40 mg Q8HR JOSE A Administration Furosemide 40 mg 06/17/18 09:00 06/18/18 08:27 Lasix 40 Mg/4 Ml IVP 40 mg DAILY JOSE A Administration Furosemide 40 mg 06/19/18 09:00 06/20/18 09:14 Lasix 40 Mg Tab PO 40 mg DAILY JOSE A Administration Guaifenesin 400 mg 06/11/18 10:52 06/15/18 23:24 Robitussin Liq PO 200 mg Q6H PRN Administration Cough /Congestion Guaifenesin/Dextromethorphan 1 tab 06/16/18 11:40 06/20/18 09:17 Mucinex Dm PO 1 tab BID JOSE A Administration Haloperidol Lactate 1 mg 06/12/18 17:24 06/12/18 17:15 Haldol IVP 06/13/18 00:00 1 mg Q4H PRN Administration Sodium Chloride 1,000 mls @ 999.9 mls/hr 06/10/18 20:51 06/10/18 21:55 Normal Saline IV 06/10/18 21:50 Infused .Q1H ONE Infusion Azithromycin 500 mg/ Sodium 250 mls @ 167 mls/hr 06/10/18 21:49 06/10/18 21: 55 Chloride IV 06/10/18 23:18 167 mls/hr O ONE Administration Sodium Chloride 1,000 mls @ 100 mls/hr 06/10/18 22:27 06/11/18 21:03 Normal Saline IV Infused .Q10H JOSE A Infusion Azithromycin 500 mg/ Sodium 250 mls @ 167 mls/hr 06/11/18 22:00 06/13/18 00: 00 Chloride IV 06/13/18 21:59 Infused Q24H JOSE A Infusion Ceftriaxone Sodium 1 g/ Sodium 100 mls @ 200 mls/hr 06/11/18 22:00 Chloride IV Q24H JOSE A Sodium Chloride 1,000 mls @ 250 mls/hr 06/11/18 14:00 06/11/18 19:34 Normal Saline IV Not Given .Q4H JOSE A Piperacillin Sod/Tazobactam 100 mls @ 200 mls/hr 06/11/18 19:45 06/14/18 14: 00 Sod 3.375 gm/ Sodium Chloride IV Infused Q6H JOSE A Infusion Ceftriaxone Sodium 1 g/ Sodium 100 mls @ 200 mls/hr 06/14/18 14:00 06/19/18 15:10 Chloride IV Infused Q24H JOSE A Infusion Amiodarone HCl 150 mg/ Sodium 103 mls @ 618 mls/hr 06/17/18 15:26 06/17/18 16 :08 Chloride IV 06/17/18 15:35 Infused O ONE Infusion Amiodarone HCl 450 mg/ Sodium 250 mls @ 33.33 mls/hr 06/17/18 15:28 06/17/18 22:28 Chloride IV 06/17/18 21:28 Infused .Q7H31M JOSE A Infusion 1 MG/MIN Amiodarone HCl 900 mg/ Sodium 500 mls @ 16.66 mls/hr 06/17/18 21:30 06/18/18 14:00 Chloride IV 0.49 mg/min .Q24H JOSE A 16.66 mls/hr Infusion 0.5 MG/MIN Sodium Chloride 250 mls @ 500 mls/hr 06/18/18 18:14 06/18/18 19:00 Normal Saline IV 06/18/18 18:43 Infused .Q30M ONE Infusion Ceftriaxone Sodium 1 g/ Sodium 100 mls @ 200 mls/hr 06/20/18 11:00 06/20/18 11:46 Chloride IV Infused Q24H JOSE A Infusion Latanoprost 1 drops 06/11/18 21:00 06/19/18 21:07 Xalatan EACH EYE 1 drops HS JOSE A Administration Lisinopril 10 mg 06/11/18 09:00 Prinivil PO DAILY JOSE A Lisinopril 10 mg 06/12/18 13:30 06/20/18 09:14 Prinivil PO 10 mg DAILY JOSE A Administration Loperamide HCl 2 mg 06/15/18 11:42 06/15/18 12:19 Imodium PO 2 mg PRN PRN Administration Protocol Lorazepam 0.5 mg 06/11/18 14:04 06/12/18 17:03 Ativan Inj IVP 0.5 mg Q4H PRN Administration Lorazepam 1 mg 06/12/18 18:05 Ativan Inj IVP Q4H PRN Lorazepam 0.5 - 1 mg 06/17/18 15:20 Ativan PO Q4H PRN Lorazepam 0.5 - 1 mg 06/17/18 15:20 Ativan Inj IVP Q4H PRN Lorazepam 0.5 - 1 mg 06/18/18 14:28 Ativan Inj IVP Q4H PRN Lorazepam 0.5 - 1 mg 06/18/18 14:28 Ativan PO Q4H PRN Magnesium Hydroxide 30 ml 06/17/18 15:20 Mom PO DAILY PRN Constipation Magnesium Hydroxide 30 ml 06/18/18 14:28 Mom PO DAILY PRN Constipation Menthol 1 lozenge 06/16/18 11:40 Ricola Sf MM PRN PRN Cough Methylprednisolone Sodium Succinate 125 mg 06/11/18 17:00 06/13/18 08:36 Solu-Medrol IVP 125 mg Q8HR JOSE A Administration Methylprednisolone Sodium Succinate 62.5 mg 06/13/18 17:00 06/15/18 08:55 Solu-Medrol IVP 62.5 mg Q8HR JOSE A Administration Metoclopramide HCl 5 - 10 mg 06/17/18 15:20 Reglan IVP Q6H PRN Nausea &/or vomiting Metoprolol Tartrate 50 mg 06/11/18 09:00 Lopressor PO BID JOSE A Metoprolol Tartrate 50 mg 06/11/18 11:49 06/13/18 08:38 Lopressor PO 50 mg BIDWM JOSE A Administration Metoprolol Tartrate 5 mg 06/11/18 23:09 06/13/18 16:05 Lopressor IVP 5 mg Q6H PRN Administration Metoprolol Tartrate 25 mg 06/13/18 12:14 06/13/18 12:24 Lopressor PO 06/13/18 12:15 25 mg O ONE Administration Metoprolol Tartrate 75 mg 06/13/18 17:30 06/16/18 08:18 Lopressor PO 75 mg BIDWM JOSE A Administration Metoprolol Tartrate 100 mg 06/16/18 17:30 06/20/18 09:17 Lopressor PO 100 mg BIDWM JOSE A Administration Nitroglycerin 0.4 mg 06/17/18 15:20 Nitrostat SL Q5MIN3 PRN Chest pain Nitroglycerin 0.4 mg 06/18/18 14:28 Nitrostat SL Q5MIN3 PRN Chest pain Non-Formulary Medication 1,000 unit 06/11/18 21:00 Cholecalciferol (Vitamin D3) [Vitamin D3] PO HS JOSE A Omeprazole 20 mg 06/11/18 06:30 06/20/18 06:31 Prilosec PO 20 mg ACB JOSE A Administration Ondansetron HCl 4 mg 06/10/18 22:27 Zofran IVP Q6H PRN Nausea &/or vomiting Pharmacy Consult 1 each 06/10/18 23:12 06/11/18 12:00 Pharmacy Consult - Fall Risk 06/10/18 23:13 1 each ONE TIME ONE Administration Pharmacy Consult each 06/12/18 00:46 Pharmacy Consult - Fall Risk 06/12/18 00:47 ONE TIME ONE Phytonadione 0.5 mg 06/13/18 12:00 06/13/18 12:23 Vitamin K Oral Liq PO 06/13/18 12:01 0.5 mg O ONE Administration Potassium Chloride 40 meq 06/11/18 11:55 06/11/18 12:03 K-Dur 20 Meq Tablet PO 06/11/18 11:56 40 meq O ONE Administration Potassium Chloride 40 meq 06/12/18 11:21 06/12/18 15:39 K-Dur 20 Meq Tablet PO 06/12/18 11:22 40 meq ONCE ONE Administration Potassium Chloride 20 meq 06/12/18 12:00 06/14/18 13:12 K-Dur 20 Meq Tablet PO 20 meq TIDWM [facility] Administration Potassium Chloride 40 meq 06/13/18 10:29 06/13/18 11:20 K-Dur 20 Meq Tablet PO 06/13/18 10:30 40 meq O ONE Administration Potassium Chloride 20 meq 06/13/18 17:15 06/13/18 17:52 K-Dur 20 Meq Tablet PO 06/13/18 17:16 20 meq ONCE ONE Administration Potassium Chloride 20 meq 06/15/18 08:00 06/20/18 09:14 K-Dur 20 Meq Tablet PO 20 meq WB [facility] Administration Potassium Chloride 20 meq 06/14/18 14:13 06/14/18 17:45 K-Dur 20 Meq Tablet PO 06/14/18 14:14 20 meq O ONE Administration Prednisone 40 mg 06/11/18 15:39 Deltasone 20 Mg PO 06/11/18 15:40 O ONE Prednisone 40 mg 06/12/18 08:00 Deltasone 20 Mg PO 06/16/18 07:59 WB JOSE A Prednisone 60 mg 06/15/18 14:23 06/17/18 08:35 Deltasone 20 Mg PO 60 mg WB JOSE A Administration Prednisone 40 mg 06/18/18 08:00 06/19/18 09:18 Deltasone 20 Mg PO 40 mg WB JOSE A Administration Prednisone 20 mg 06/20/18 08:00 06/20/18 09:14 Deltasone 20 Mg PO 20 mg WB JOSE A Administration Promethazine HCl 12.5 - 25 mg 06/17/18 15:20 Phenergan Inj IVP Q6H PRN Nausea Promethazine HCl 12.5 - 25 mg 06/18/18 14:28 Phenergan Inj IVP Q6H PRN Nausea Senna/Docusate Sodium 1 tab 06/10/18 22:27 06/19/18 09:19 Senna Plus Tablet PO 1 tab BID PRN Administration Constipation Simvastatin 40 mg 06/11/18 21:00 06/19/18 21:06 Zocor PO 40 mg HS JOSE A Administration Sodium Chloride 10 - 80 ml 06/10/18 20:50 06/20/18 11:16 Iv Flush IVF 10 ml PRN PRN Administration Flushing Sodium Chloride 500 ml 06/12/18 20:08 06/16/18 14:08 Normal Saline IV 500 ml PRN PRN Administration Warfarin Sodium 2.5 mg 06/11/18 12:30 06/12/18 15:39 Coumadin PO 2.5 mg [id number] [facility] Administration Warfarin Sodium 5 mg 06/13/18 12:00 Coumadin PO [id number]@1200 [facility] Warfarin Sodium 1 each 06/11/18 11:45 06/11/18 12:04 Pharmacy Consult - Warfarin 06/11/18 11:46 1 each O ONE Administration Warfarin Sodium 0 06/11/18 12:00 Coumadin Protocol NOTE JOSE A Warfarin Sodium 2.5 mg 06/18/18 19:36 06/18/18 21:13 Coumadin PO 06/18/18 19:37 2.5 mg O ONE Administration Warfarin Sodium 4 mg 06/19/18 12:30 06/19/18 13:10 Coumadin PO 06/19/18 12:31 4 mg O ONE Administration Warfarin Sodium 5 mg 06/20/18 12:00 06/20/18 11:16 Coumadin PO 06/20/18 12:01 5 mg O ONE Administration - Urinary Catheter Management Urethral Cath placed during this visit: no Coude Cath placed during this visit: no Results 06/20/18 04:13 06/20/18 04:13 Assessment and Plan - Assessment and Plan (1) Sepsis Status: Acute (2) Paroxysmal A-fib Status: Chronic (3) HTN (hypertension) Status: Chronic (4) Pneumonia Status: Acute (5) Pulmonary edema Status: Acute (6) Mixed hyperlipidemia Status: Chronic (7) NSTEMI (non-ST elevated myocardial infarction) Status: Acute (8) Severe aortic stenosis Status: Acute (9) Supratherapeutic INR Status: Acute (10) CHF (congestive heart failure) Status: Acute (11) Coronary artery disease Status: Acute - Attestation Attestation Narrative: 06/27/18 16:01 Recommendation After examining the patient I agree with the above assessment. I am involved in the formulation of the patient's plan of care. Hospital Course Summary Disclaimer: The visit summary below is not to be considered part of the above Progress Note.
--- NOTE | 2018-06-19 11:57 | Progress Note ---
- Date 06/19/18 Subjective: F/U: Pneumonia, acute hypoxic respiratory failure, acute diastolic/valvular heart failure Doing okay this morning. Breathing improving-note cough with clear sputum this morning. No pain with breathing. Feels less SOA and congested. On O2 at 1L with normal saturations. Not having chest pressure, pain, or palpitations. Larios removed this am-not urinated yet. Bowels moving. No ab pain or nausea. Strength increasing. Not feeling dizzy or unsteady with positional changes (but notes stiffness to back makes initial transfer challenging). No f/c. Objective Vital signs: Temperature 97 F 06/19/18 11:43 Pulse Rate 74 06/19/18 11:43 Respiratory Rate 20 06/19/18 11:43 Blood Pressure 100/57 06/19/18 11:43 Pulse Oximetry 96 06/19/18 11:43 Rhythm: Atrial Fibrillation with Normal Ventricular Rate Height/Weight/BMI: Height 1.88 m Weight 107.4 kg Body Mass Index 29.3 - Constitutional Present: well nourished, well developed, average body habitus, obese, cooperative - Routine HEENT Exam Head: Present: normocephalic, atraumatic Eye: Present: EOMI, PERRL ENT: Present: mucous membranes moist - Routine Respiratory Exam Present: decreased breath sounds, distant breath sounds, diminished air movement. Absent: respiratory distress, wheezes, crackles - Routine Cardiovascular Exam Present: irregular rhythm, irregularly irregular - Routine Abdominal Exam Present: soft, normoactive bowel sounds, non distended, non tender - Routine Extremities Exam Present: edema (Trace BLE), pulses intact. Absent: cyanosis, clubbing - Routine Musculoskeletal Exam Musculoskeletal: Present: no clubbing or cyanosis - Routine Skin Exam Present: dry, warm - Routine Neurological Exam Present: alert, oriented X3, CN II-XII intact, moving all extremities, vision grossly intact, hearing grossly intact, normal speech. Absent: motor deficit, altered mental status - Routine Psychiatric Exam Present: normal affect, normal thought process, cooperative Results - Labs CBC & Chem 7: 06/19/18 04:45 06/19/18 04:45 Microbiology Results: Microbiology 06/11/18 18:03 Peripheral/Iv Start Blood Culture - Final No Growth After 5 Days 06/11/18 17:51 Peripheral/Iv Start Blood Culture - Final No Growth After 5 Days 06/11/18 09:26 Sputum, Expectorated Gram Stain - Final 06/11/18 09:26 Sputum, Expectorated Sputum Culture - Final Haemophilus influenzae Normal Respiratory Malini 06/11/18 17:27 Urine Legionella Urinary Antigen - Final 06/11/18 17:27 Urine Streptococcus pneumoniae Antigen (M - Final Assessment and Plan (1) Severe sepsis Current visit: Yes Status: Acute (2) Pneumonia Current visit: Yes Status: Acute Assessment and Plan: Impression Sepsis - severe 1. CAP 2. Leukocytosis, 3. Bandemia, 4. Tachycardia, 5. Tachypnea, 6. Lactic acidosis Community acquired pneumonia - Haemophilus influenza Acute hypoxic respiratory failure Hypokalemia (POA) Pulmonary edema Acute congestive heart failure-valvular Non-ST elevation MD - Type II MD Aortic stenosis - moderate severe Elevated LFTs Atrial fibrillation, chronic Anticoagulation on warfarin Hypertension Presbyesophagus GERD Plan Clinically improving. Tolerating therapy, strength increasing. CXR showing interval improvement. O2 needs decreasing. Continue with ceftriaxone. Day 9 of antibiotics for Haemophilus influenza pneumonia. Prednisone at 40mg (Day #2). Will decrease to 20mg tomorrow. INR decreased to 1.97. Will give 4mg warfarin today. Discussed with Pharm. Larios removed - bladder scans as needed. has made arrangements for skilled at discharge. Possible discharge tomorrow if continues to do well. Recheck CBC in am due to resolving sepsis and pneumonia. Will repeat BMP in am due to medication use. Time spent with pt care 25 minutes. DVT Prophylaxis: SCD's, Coumadin GI Prophylaxis: Omeprazole Resuscitation Status: Full Code - Time spent with patient Time with patient PN: 25 minutes - Physician Narrative Physician: Leo Scott MD Narrative: Date: 06/19/18 Time: 1154 Hospital Course Summary Disclaimer: The visit summary below is not to be considered part of the above Progress Note. Hospital Course: 06/11/18 Admit to inpatient status under the care of Dr. Urbina for sepsis and pneumonia. Will continue on IV Rocephin and IV Azithromycin for pulmonary coverage. Sputum cultures pending. will repeat a venous lactate as the last one did trend up. Continue on scheduled DuoNeb breathing treatments 4 times a day. Currently on 2 liters of oxygen by nasal cannula. Consultation placed to speech therapy given question for dysphagia. Recent Vomiting, hx of Presbyesophagus. Replace oral potassium and monitor. Home antihypertensives remain on hold at time of admission given sepsis. This patient on cardiac telemetry. Given irregular heartbeat and known history of atrial fibrillation SCDs to bilateral lower extremity for DVT prophylaxis. Check CMP tomorrow morning to follow elevated LFTs. Consultation with PT and OT, Given patient's weakness secondary to acute illness. Addendum: Progressive deterioration in respiratory status through the day prompted switching from ceftriaxone to Zosyn for broader coverage and anaerobic coverage. Later transferred to ICU and diuresis initiated due to concern that he was becoming volume overloaded. Echo ordered for a.m. 06/12/18 Converted from ceftriaxone to Zosyn yesterday evening for broader coverage and anaerobic coverage given known history of presbyesophagus and risk of aspiration. Azithromycin continued for atypical coverage. Respiratory viral panel negative, urine antigens pending as is sputum culture. Afebrile overnight, appears clinically improved this morning overall. Continue aggressive breathing treatments and Solu-Medrol for additional 24 hours after which will begin tapering. Discussed with RT-Acapella to be initiated. Volume overloaded with development of acute congestive heart failure and component of pulmonary edema following volume replacement yesterday; now known to have moderately severe aortic stenosis by echo this morning. Cardiology consulted. Continue diuresis initiated yesterday evening. Blood pressure improved from yesterday, no recurrent "spells". Ongoing potassium replacement. Resolution of abnormal liver enzymes. 06/13/18 Patient reports clinical improvement, afebrile, decreasing cough and improved exertional tolerance. Continue Zosyn; complete 3 days azithromycin today. Sputum culture/blood cultures pending. Chest x-ray in a.m. White count climbing but no sign of worsening infection; likely due to steroids. Begin titrating steroid dose; continue breathing treatments and Acapella with treatments. Diuresed well yesterday, now has net negative fluid balance compared to admission. Stable cardiac rhythm, persistent low-grade tachycardia, metoprolol dose increased by cardiology for improved rate control. INR remains elevated, low-dose vitamin K given to prevent further climb and anticipate stabilization as oral intake improves and following discontinuation of azithromycin. Mental status clearing, appears to in the evening-continue to monitor. Requires ongoing potassium supplementation-recheck potassium later today to determine if additional potassium needed. 06/14/18 Continued clinical improvement, partial clearing on chest x-ray. With identification of Haemophilus influenza will resume ceftriaxone and discontinue Zosyn. Continue to monitor leukocytosis with change in antibiotics and as steroids tapered. If doing well tomorrow will convert prednisone. Heart rate improving although tachycardic with minimal activity. Metoprolol increased yesterday BUN/creatinine up slightly today-Lasix decreased to daily. Potassium is stabilized, decrease potassium supplement in conjunction with decreased diuresis. Valvular heart disease present-aortic stenosis not adequately visualized on transthoracic study -anticipate SIRISHA in the near future with left heart catheter. Mental status significantly improved from first 2 days in the hospital. INR down slightly today but remains super-therapeutic, warfarin remains on hold. 06/15/18 Continued progress, day 5 of antibiotics for Haemophilus influenza pneumonia. Afebrile, white count improving as is oxygen demand. Convert to prednisone po. Continue diuresis with Lasix daily; anticipate SIRISHA and left heart catheter in near future. Heart rate relatively well controlled, intermittent tachycardia-primarily with activities. Blood pressure stable. Fasting blood sugars modestly elevated-A1c in a.m. Loose stools described today, C. difficile PCR will be checked. 06/16/18 Continue with ceftriaxone. Day 6 of antibiotics for Haemophilus influenza pneumonia. Prednisone at 60mg (Day #2). Lasix increased to 40mg IV q8 hours to help motivate fluid. Creatinine stable at 0.8. Metoprolol increase to 100mg BID by cardiology to help heart rate. Anticipate SIRISHA and left heart catheter in near future. A1c with slight elevation at 6.4%, C. diff PCR negative. Tolerating therapy to improve functional status. Likely need skilled care post discharge. INR improving but remains super-therapeutic at 3.51, warfarin remains on hold. Possible transfer to medical floor - would continue CCU care if SIRISHA planned in near future. 06/17/18 SIRISHA/Cardioversion attempted today, but patient not able to convert to sinus. Amiodarone drip started by cardiology and plans reattempt tomorrow. Continue with ceftriaxone. Day 7 of antibiotics for Haemophilus influenza pneumonia. Prednisone at 60mg (Day #3), will decrease to 40mg tomorrow. Chest X-ray without change. O2 needs at 3L currently. Lasix decreased to 40mg IV daily. Creatinine stable at 0.8. Potassium 4.2 with Mg 2.2. INR decreased to 2.71. Will continue with CCU care and monitoring as repeat bedside cardioversion planned for tomorrow. 06/18/18 SIRISHA/Cardioversion attempted today, but patient not able to convert to sinus. Amiodarone discontinued and cardiology working on rate control. Continue with ceftriaxone. Day 8 of antibiotics for Haemophilus influenza pneumonia. Prednisone at 40mg (Day #1). O2 needs with decrease - on RA this morning, but O2 needed post cardioversion; wean as able. Lasix decreased to 40mg po daily. Creatinine 1.0 with potassium 4.0. INR decreased to 2.40. Will give 2.5mg warfarin today. Will discontinue Larios cath in am. Bladder retraining has been occurring. Patient working with therapy to improve functional status. Nursing to help ambulate TID. With encouragement from his daughter and myself, patient is leaning towards Skilled care at time of discharge. Medically stable for transfer to tele floor for continuation of care. 06/19/18 Clinically improving. Tolerating therapy, strength increasing. CXR showing interval improvement. O2 needs decreasing. Continue with ceftriaxone. Day 9 of antibiotics for Haemophilus influenza pneumonia. Prednisone at 40mg (Day #2). Will decrease to 20mg tomorrow. INR decreased to 1.97. Will give 4mg warfarin today. Discussed with Pharm. Ric removed - bladder scans as needed. CM has made arrangements for skilled at discharge. Possible discharge tomorrow if continues to do well.
[2018-06-19] MEDS ORDERED: WARFARIN 4 MG TABLET PO ONE (12:30)
[2018-06-19] MEDS: CEFTRIAXONE 1 G in NS 100 ML IV SCH (14:27)
[2018-06-19 18:27] VITALS: BMI 37.1
[2018-06-19] MEDS ORDERED: ALBUTEROL/IPRATROPIUM 2.5mg-0.5mg/3ml NEB AEROSOL SCH (19:00)
[2018-06-19] MEDS: ALBUTEROL/IPRATROPIUM 2.5mg-0.5mg/3ml NEB AEROSOL SCH (19:47)
[2018-06-19] MEDS: CITALOPRAM 20 MG TABLET PO SCH (21:06)
[2018-06-19] MEDS: EZETIMIBE 10 MG TABLET PO SCH (21:06)
[2018-06-19] MEDS: SIMVASTATIN 40 MG TABLET PO SCH (21:06)
[2018-06-19] MEDS: LATANOPROST 0.005% EYE DROPS 2.5ml EACH EYE SCH (21:07)
[2018-06-19] MEDS: SALINE FLUSH 10ml SYRINGE IVF PRN ×2 (21:09→21:28)
[2018-06-20] MEDS: OMEPRAZOLE 20 MG CAPSULE PO SCH (06:31)
[2018-06-20] MEDS: ALBUTEROL/IPRATROPIUM 2.5mg-0.5mg/3ml NEB AEROSOL SCH (06:49)
[2018-06-20] MEDS ORDERED: PredniSONE 20 MG TABLET PO SCH (08:00)
[2018-06-20] MEDS: FUROSEMIDE 40 MG TABLET PO SCH (09:14)
[2018-06-20] MEDS: LISINOPRIL 10 MG TABLET PO SCH (09:14)
[2018-06-20] MEDS: GUAIFENESIN/D-METHORPHAN 600mg/30mg TABLET PO SCH (09:17)
--- NOTE | 2018-06-20 10:11 | Progress Note ---
- Date 06/20/18 Subjective: F/U: Pneumonia, acute hypoxic respiratory failure, acute diastolic/valvular heart failure Doing well this morning. Was on room air all night. Had cough, but producing clear sputum. No pain with breathing. Not feeling chest pressure or palpitations. Eating well. No ab pain or nausea. Bowels moving. Urinating well- no discomfort with urination without Larios. Feels empting his bladder. Strength improving. No f/c. Objective Vital signs: Temperature 97.1 F 06/20/18 07:41 Pulse Rate 74 06/20/18 09:18 Respiratory Rate 20 06/20/18 07:41 Blood Pressure 119/67 06/20/18 08:17 Pulse Oximetry 95 06/20/18 08:14 Rhythm: Atrial Fibrillation with Normal Ventricular Rate Height/Weight/BMI: Height 1.7 m Weight 107.9 kg Body Mass Index 37.1 - Constitutional Present: no acute distress, well nourished, well developed, average body habitus , obese, cooperative - Routine HEENT Exam Head: Present: normocephalic, atraumatic Eye: Present: EOMI, PERRL ENT: Present: mucous membranes moist - Routine Respiratory Exam Present: decreased breath sounds, diminished air movement. Absent: respiratory distress, wheezes, crackles - Routine Cardiovascular Exam Present: irregular rhythm, irregularly irregular - Routine Abdominal Exam Present: soft, normoactive bowel sounds, non distended, non tender. Absent: guarding - Routine Extremities Exam Present: edema (Trace BLE), pulses intact. Absent: cyanosis, clubbing - Routine Musculoskeletal Exam Musculoskeletal: Present: no clubbing or cyanosis - Routine Skin Exam Present: dry, warm - Routine Neurological Exam Present: alert, oriented X3, CN II-XII intact, moving all extremities, vision grossly intact, hearing grossly intact, normal speech. Absent: motor deficit, altered mental status - Routine Psychiatric Exam Present: normal affect, normal thought process, cooperative Results - Labs CBC & Chem 7: 06/20/18 04:13 06/20/18 04:13 Microbiology Results: Microbiology 06/11/18 18:03 Peripheral/Iv Start Blood Culture - Final No Growth After 5 Days 06/11/18 17:51 Peripheral/Iv Start Blood Culture - Final No Growth After 5 Days 06/11/18 09:26 Sputum, Expectorated Gram Stain - Final 06/11/18 09:26 Sputum, Expectorated Sputum Culture - Final Haemophilus influenzae Normal Respiratory Malini 06/11/18 17:27 Urine Legionella Urinary Antigen - Final 06/11/18 17:27 Urine Streptococcus pneumoniae Antigen (M - Final Assessment and Plan (1) Severe sepsis Current visit: Yes Status: Acute (2) Pneumonia Current visit: Yes Status: Acute Assessment and Plan: Impression Sepsis - severe 1. CAP 2. Leukocytosis, 3. Bandemia, 4. Tachycardia, 5. Tachypnea, 6. Lactic acidosis Community acquired pneumonia - Haemophilus influenza Acute hypoxic respiratory failure Hypokalemia (POA) Pulmonary edema Acute congestive heart failure-valvular Non-ST elevation NC - Type II NC Aortic stenosis - moderate severe Elevated LFTs Atrial fibrillation, chronic Anticoagulation on warfarin Hypertension Presbyesophagus GERD Plan Doing well. Maintaining saturations off O2. Breathing improving. Eating well. Urinating well. Vitals stable. Afebrile. Medically stable for discharge to [facility]. Has had 10 days of antibiotic treatment - course completed. Will continue with Prednisone 20mg daily for 4 more days and then can stop. Continue with home Coumadin dosage. Medication changes: Norvasc stopped. Metoprolol tartrate increased to 100mg BIDWM (prior was 50mg BIDWM). Furosemide 40mg daily with potassium 20mEq with breakfast. Likely need to decrease or stop furosemide due to aortic stenosis. Monitor for dizziness with positional changes. DuoNeb BID and albuterol prn. Likely able to change DuoNeb to prn as breathing improves. Mucinex DM BID for 1 week. Ricola as needed. PT/OT to help improve functional status. BMP and INR on 06/24 secondary to medication use. F/U with Dr Navarro in 1 week. F/U with Dr Lund in 2 - 4 weeks for follow up and referral to EP for ablation. See orders for details. Case discussed with CM. Time spent with patient care and discharge greater than 30 minutes. DVT Prophylaxis: SCD's, Coumadin GI Prophylaxis: Omeprazole Resuscitation Status: Full Code - Physician Narrative Physician: Leo Scott MD Narrative: Date: 06/20/18 Time: 1007 Hospital Course Summary Disclaimer: The visit summary below is not to be considered part of the above Progress Note. Hospital Course: 06/11/18 Admit to inpatient status under the care of Dr. Urbina for sepsis and pneumonia. Will continue on IV Rocephin and IV Azithromycin for pulmonary coverage. Sputum cultures pending. will repeat a venous lactate as the last one did trend up. Continue on scheduled DuoNeb breathing treatments 4 times a day. Currently on 2 liters of oxygen by nasal cannula. Consultation placed to speech therapy given question for dysphagia. Recent Vomiting, hx of Presbyesophagus. Replace oral potassium and monitor. Home antihypertensives remain on hold at time of admission given sepsis. This patient on cardiac telemetry. Given irregular heartbeat and known history of atrial fibrillation. SCDs to bilateral lower extremity for DVT prophylaxis. Check CMP tomorrow morning to follow elevated LFTs. Consultation with PT and OT, Given patient's weakness secondary to acute illness. Addendum: Progressive deterioration in respiratory status through the day prompted switching from ceftriaxone to Zosyn for broader coverage and anaerobic coverage. Later transferred to ICU and diuresis initiated due to concern that he was becoming volume overloaded. Echo ordered for a.m. 06/12/18 Continue Zosyn and azithromycin for broader coverage and anaerobic coverage given known history of presbyesophagus and risk of aspiration. Respiratory viral panel negative, urine antigens pending as is sputum culture. Afebrile overnight, appears clinically improved this morning overall. Continue aggressive breathing treatments and Solu-Medrol for additional 24 hours after which will begin tapering. Discussed with RT-Acapella to be initiated. Volume overloaded with development of acute congestive heart failure and component of pulmonary edema following volume replacement yesterday. Now known to have moderately severe aortic stenosis by echo this morning. Cardiology consulted. Continue diuresis initiated yesterday evening. Blood pressure improved from yesterday, no recurrent "spells". Ongoing potassium replacement. Resolution of abnormal liver enzymes. 06/13/18 Patient reports clinical improvement, afebrile, decreasing cough and improved exertional tolerance. Continue Zosyn; complete 3 days azithromycin today. Sputum culture/blood cultures pending. Chest x-ray in a.m. White count climbing but no sign of worsening infection; likely due to steroids. Begin titrating steroid dose; continue breathing treatments and Acapella with treatments. Diuresed well yesterday, now has net negative fluid balance compared to admission. Stable cardiac rhythm, persistent low-grade tachycardia, metoprolol dose increased by cardiology for improved rate control. INR remains elevated, low-dose vitamin K given to prevent further climb & anticipate stabilization as oral intake improves & following discontinuation of azithromycin. Mental status clearing, appears to in the evening-continue to monitor. Requires ongoing potassium supplementation-recheck potassium later today to determine if additional potassium needed. 06/14/18 Continued clinical improvement, partial clearing on chest x-ray. With identification of Haemophilus influenza will resume ceftriaxone and discontinue Zosyn. Continue to monitor leukocytosis with change in antibiotics and as steroids tapered. If doing well tomorrow will convert prednisone. Heart rate improving although tachycardic with minimal activity. Metoprolol increased yesterday BUN/creatinine up slightly today-Lasix decreased to daily. Potassium is stabilized, decrease potassium supplement in conjunction with decreased diuresis. Valvular heart disease present-aortic stenosis not adequately visualized on transthoracic study -anticipate SIRISHA in the near future with left heart catheter. Mental status significantly improved from first 2 days in the hospital. INR down slightly today but remains super-therapeutic, warfarin remains on hold. 06/15/18 Continued progress, day 5 of antibiotics for Haemophilus influenza pneumonia. Afebrile, white count improving as is oxygen demand. Convert to prednisone po. Continue diuresis with Lasix daily; anticipate SIRISHA and left heart catheter in near future. Heart rate relatively well controlled, intermittent tachycardia-primarily with activities. Blood pressure stable. Fasting blood sugars modestly elevated-A1c in a.m. Loose stools described today, C. difficile PCR will be checked. 06/16/18 Continue with ceftriaxone. Day 6 of antibiotics for Haemophilus influenza pneumonia. Prednisone at 60mg (Day #2). Lasix increased to 40mg IV q8 hours to help motivate fluid. Creatinine stable at 0.8. Metoprolol increase to 100mg BID by cardiology to help heart rate. Anticipate SIRISHA and left heart catheter in near future. A1c with slight elevation at 6.4%, C. diff PCR negative. Tolerating therapy to improve functional status. Likely need skilled care post discharge. INR improving but remains super-therapeutic at 3.51, warfarin remains on hold. Possible transfer to medical floor - would continue CCU care if SIRISHA planned in near future. 06/17/18 SIRISHA/Cardioversion attempted today, but patient not able to convert to sinus. Amiodarone drip started by cardiology and plans reattempt tomorrow. Continue with ceftriaxone. Day 7 of antibiotics for Haemophilus influenza pneumonia. Prednisone at 60mg (Day #3), will decrease to 40mg tomorrow. Chest X-ray without change. O2 needs at 3L currently. Lasix decreased to 40mg IV daily. Creatinine stable at 0.8. Potassium 4.2 with Mg 2.2. INR decreased to 2.71. Will continue with CCU care and monitoring as repeat bedside cardioversion planned for tomorrow. 06/18/18 SIRISHA/Cardioversion attempted today, but patient not able to convert to sinus. Amiodarone discontinued and cardiology working on rate control. Continue with ceftriaxone. Day 8 of antibiotics for Haemophilus influenza pneumonia. Prednisone at 40mg (Day #1). O2 needs with decrease - on RA this morning, but O2 needed post cardioversion; wean as able. Lasix decreased to 40mg po daily. Creatinine 1.0 with potassium 4.0. INR decreased to 2.40. Will give 2.5mg warfarin today. Will discontinue Larios cath in am. Bladder retraining has been occurring. Patient working with therapy to improve functional status. Nursing to help ambulate TID. With encouragement from his daughter and myself, patient is leaning towards Skilled care at time of discharge. Medically stable for transfer to tele floor for continuation of care. 06/19/18 Clinically improving. Tolerating therapy, strength increasing. CXR showing interval improvement. O2 needs decreasing. Continue with ceftriaxone. Day 9 of antibiotics for Haemophilus influenza pneumonia. Prednisone at 40mg (Day #2). Will decrease to 20mg tomorrow. INR decreased to 1.97. Will give 4mg warfarin today. Discussed with Pharm. Larios removed - bladder scans as needed. CM has made arrangements for skilled at discharge. Possible discharge tomorrow if continues to do well. 06/20/18 Doing well. Maintaining saturations off O2. Breathing improving. Eating well. Urinating well. Vitals stable. Afebrile. Medically stable for discharge to [facility]. Has had 10 days of antibiotic treatment - course completed. Will continue with Prednisone 20mg daily for 4 more days and then can stop. Continue with home Coumadin dosage. Medication changes: Norvasc stopped. Metoprolol tartrate increased to 100mg BIDWM (prior was 50mg BIDWM). Furosemide 40mg daily with potassium 20mEq with breakfast. Likely need to decrease or stop furosemide due to aortic stenosis. Monitor for dizziness with positional changes. DuoNeb BID and albuterol prn. Likely able to change DuoNeb to prn as breathing improves. Mucinex DM BID for 1 week. Ricola as needed. PT/OT to help improve functional status. BMP and INR on 06/24 secondary to medication use. F/U with Dr Navarro in 1 week. F/U with Dr Lund in 2 - 4 weeks for follow up and referral to EP for ablation. See orders for details.
--- NOTE | 2018-06-20 10:29 | Extended Care Facility Orders ---
Admission Orders Admit to:: [facility] Allergies/Adverse Reactions: Allergies No Known Drug Allergies Allergy (Unknown, Verified 06/10/18 20:53) Admitting Diagnosis: CAP, Acute respiratory failure Admitting Physician: Leo Scott MD Attending Physician: Dr Navarro Code Status: Full Code Anticiapted Length of Stay: 30 days or less Rehab Potential: good Rehab Prognosis: good Diet: No added salt May use Facility Protocol or Standing Orders: Yes May have flu vaccine: Yes Evaluations/Treatment: PT, OT [facility] Certification: I certify that SNF services are required to be given on an inpatient basis because of the patient's need for jail care on a continuing basis for the condition(s) for which he/she received inpatient hospital services prior to his/her transfer to the SNF. SNF inpatient care is necessary for the following reasons: Indication for [facility]: Med Admininistration, Assess Anticoagulation Therapy, Other (Skilled PT/OT to maximize functional status. senior living to monitor cardiopulmonary status. ) - Additional Information In Event of Arrest: Start CPR,call 911,send patient to the ER Resident is Aware of Diagnosis: Yes Referrals: Karthik Navarro MD [Primary Care Provider] - 1 Week (Hospital follow up for pneumonia/resp failure. On Skilled at [facility]. ) Braden Lund MD [Physician] - 3 Weeks (Hospital follow up for afib - failed cardioverson x2; possible referral to EP for ablation. ) Additional Orders: BMP and INR on 06/24/18. Dx: Medication use. Result to Dr Navarro. Daily weights. Orthostatic vitals Twice a day. Monitor for dizziness with positional changes - could be sign of overdiuresis with furosemide.
[2018-06-20] MEDS ORDERED: CEFTRIAXONE 1 G in NS 100 ML IV SCH (11:00)
[2018-06-20] MEDS: SALINE FLUSH 10ml SYRINGE IVF PRN (11:16)
[2018-06-20] MEDS ORDERED: WARFARIN 5 MG TABLET PO ONE (12:00)
[2018-06-20 14:05] VITALS: BP 105/62; PULSE 76; RESP 22; TEMP 97.2; O2SAT 97
--- NOTE | 2018-06-20 15:21 | Discharge Summary ---
Discharge Information Date of admission: 06/10/18 22:17 Anticipated date of discharge: 06/20/18 Attending Physician: Leo Scott MD Primary care physician: Karthik Navarro MD Consults: Physician Consult [CONS] Routine Consulting Provider: Joaquín Andrea PT/OT - Discharge Diagnosis (1) Severe sepsis Status: Acute (2) Pneumonia Status: Acute Problems Reviewed?: Yes Discharge diagnosis Sepsis - severe 1. CAP 2. Leukocytosis, 3. Bandemia, 4. Tachycardia, 5. Tachypnea, 6. Lactic acidosis Associated conditions and complication Community acquired pneumonia - Haemophilus influenza Acute hypoxic respiratory failure Hypokalemia (POA) Pulmonary edema Acute congestive heart failure-valvular Non-ST elevation [place] - Type II [place] Aortic stenosis - moderate severe Elevated LFTs Atrial fibrillation, chronic Anticoagulation on warfarin Hypertension Presbyesophagus GERD - Procedures Procedures: Date of Exam: 06/12/18 Type of Exam: US ECHO Doppler complete FINDINGS 1. STUDY QUALITY: Technically limited due to poor acoustic window. 2. LEFT VENTRICLE: Left ventricle appears normal in size. There is moderate concentric left ventricular hypertrophy noted. Left ventricular systolic function appears to be hyperdynamic. Estimated LVEF 70%-75%. No regional wall motion abnormalities noted. The study is not technically adequate to assess accurate diastolic dysfunction. 3. RIGHT VENTRICLE: Right ventricle appears normal in size. Normal right ventricular wall thickness noted. Normal right ventricular systolic function noted. 4. RIGHT ATRIUM: Right atrium is moderately dilated. 5. LEFT ATRIUM: Left atrium appears to be moderately to severely dilated. 6. MITRAL VALVE: There is mild mitral annular calcification noted. Mild thickening of the leaflets noted. There is no significant mitral stenosis noted. Mild mitral regurgitation noted. 7. AORTIC VALVE: The aortic valve is heavily calcified. Reduced systolic excursion of the leaflet. Appears to be trileaflet. There is trivial aortic regurgitation noted. There is moderate aortic stenosis noted. Peak velocities across the aortic valve 3.5 m/sec with a mean pressure gradient of 15, mean gradient of 25 mmHg with estimated calculated valve area of 1.3 cm2. Due to limited window the severity of aortic stenosis could not be accurately assessed on today's study. 8. TRICUSPID VALVE: Tricuspid valve appears structurally normal. Mild-to- moderate tricuspid regurgitation noted. 9. PULMONIC VALVE: Not visualized on today's study. 10. INFERIOR VENA CAVA: IVC is dilated with normal respirophasic variation suggestive of mildly elevated right atrial pressure. 11. PULMONARY ARTERY: Significantly elevated pulmonary artery systolic pressure. Estimated pulmonary artery systolic pressure is 60-65 mmHg. CONCLUSION 1. Hyperdynamic left ventricular systolic function. Estimated LVEF 70%-75%. 2. Normal right ventricular systolic function. 3. Mild mitral regurgitation noted. 4. At least moderate aortic stenosis noted. Peak velocity across the aortic valve 3.5, peak gradient 15, mean gradient 25 mmHg with calculated valve area of 1.3 cm2. Due to limited windows aortic stenosis severity could be underestimated. 5. [id number]-[id number] tricuspid regurgitation noted. 6. Significantly elevated pulmonary artery systolic pressure. Estimated pulmonary artery systolic pressure 60-65 mmHg. ------- Date of Exam: 06/17/18 Type of Exam: US SIRISHA w/ Doppler Left atrium is dilated. Left ventricular end-diastolic dimension is normal. Left ventricular wall thickness is increased. LV systolic function is normal with ejection fraction of about 55%. Right atrium is dilated. Right ventricle is normal. Mitral valve is sclerotic with mild mitral regurgitation. Aortic valve is a trileaflet structure with fibrocalcific changes. Mild restriction on opening motion is present. Using planimetry aortic valve area was measured between 1.47 and 1.67 cm2. There is no aortic insufficiency. Tricuspid valve shows [id number] tricuspid regurgitation. Pulmonary valve shows mild pulmonary insufficiency. There is no pericardial effusion. Agitated saline was injected which showed no evidence of [id number] shunt. Descending thoracic aorta shows moderate atherosclerosis. IMPRESSION 1. Normal LV systolic function with ejection fraction of about 55%. 2. Left ventricular hypertrophy. 3. Biatrial dilation. 4. Mitral sclerosis with mild mitral regurgitation. 5. Mild aortic stenosis with a valve area of 1.47-1.67cm2. 6. Cnhw-[id number]-bchfriva tricuspid regurgitation. 7. Mild pulmonary insufficiency. 8. 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 After reviewing the images anterior-posterior Zoll pads were applied. 360 joules of energy was delivered in synchronized manner and patient converted from atrial fibrillation to sinus rhythm. He tolerated the procedure well with no complications. IMPRESSION Successful DC cardioversion of atrial fibrillation to sinus rhythm. PLAN Will continue anticoagulation and start antiarrhythmics to maintain sinus. ----- Date of Exam: 06/18/18 Type of Exam: DC Cardioversion Ultimately unsuccessful in maintaining sinus rhythm. - Laboratory Labs: Admit Lab 06/10/18 21:00 WBC 13.2 H Hgb 14.1 Hct 41.8 MCV 94.4 Plt Count 141 Neutrophils % (Manual) 53.0 Band Neutrophils % 19.0 H Monocytes % (Manual) 11.0 H Admit Lab 06/10/18 20:59 Sodium 138 Potassium 3.5 L Chloride 101 Carbon Dioxide 25 Anion Gap 12 BUN 25.0 H Creatinine 1.0 GFR Calculation 73 BUN/Creatinine Ratio 25 Glucose 127 H Calculated Osmolality 272 Calcium 9.1 Total Bilirubin 1.20 Unconjugated Bilirubin 1.10 AST 92 H ALT 66 H Alkaline Phosphatase 110 Total Protein 7.5 Albumin 4.0 Globulin 3.5 Albumin/Globulin Ratio 1.1 Plasma Lactate 1.4 Admit Lab 06/10/18 20:59 INR 2.81 H Laboratory Tests 06/15/18 19:52 Stl C. diff Tox B Gene Negative Discharge INR 06/20/18 04:13 INR 1.93 H Discharge Liver Enzymes 06/20/18 04:13 Total Bilirubin 0.80 AST 28 ALT 64 H Alkaline Phosphatase 89 06/20/18 04:13 06/20/18 04:13 - Microbiology Microbiology 06/11/18 18:03 Peripheral/Iv Start Blood Culture - Final No Growth After 5 Days 06/11/18 17:51 Peripheral/Iv Start Blood Culture - Final No Growth After 5 Days 06/11/18 09:26 Sputum, Expectorated Gram Stain - Final 06/11/18 09:26 Sputum, Expectorated Sputum Culture - Final Haemophilus influenzae Normal Respiratory Malini 06/11/18 17:27 Urine Legionella Urinary Antigen - Final - Negative 06/11/18 17:27 Urine Streptococcus pneumoniae Antigen - Final - Negative - Radiology Radiology: Date of Exam: 06/10/18 Type of Exam: XR chest 2V FINDINGS: New bilateral airspace disease, somewhat diffusely but more focal in the lingula and right lower lobe. No pneumothorax or effusion. Heart size and mediastinal contours are stable. Hiatal hernia. Impression: Bilateral airspace disease could represent pneumonia with peribronchial spread of infection and/or edema. Recommend clinical and laboratory correlation. Date of Exam: 06/11/18 Type of Exam: XR chest 1V Findings: Stable diffuse bilateral airspace opacities. No gross pneumothorax or significant pleural effusion. Heart size and mediastinal contours are stable. Pulmonary vascularity is indistinct and somewhat obscured. Impression: Stable appearance of the chest with significant bilateral airspace disease. Date of Exam: 06/12/18 Type of Exam: XR chest post-procedure 1V Findings: New right PICC line in place with the tip projecting over the expected cavoatrial junction. Patient is rotated. No gross pneumothorax. Significant bilateral infiltrates are unchanged. Cardiac silhouette remains enlarged. Mediastinal contours are stable allowing for differences in rotation. Impression: New right PICC line tip projects over the expected cavoatrial junction. Date of Exam: 06/12/18 Type of Exam: XR chest 1V Findings: Worsening airspace disease in the right upper and right lower lobe with stable persistent scattered airspace opacities throughout the remaining lung burdick. No pneumothorax or significant effusion. Cardiac silhouette is moderately enlarged. Mediastinal contours are stable. Pulmonary vascularity is indistinct. Impression: Worsening appearance of the chest could be due to pneumonia and/or edema. Date of Exam: 06/17/18 Type of Exam: XR chest 2V FINDINGS: Right PICC line remains in place. Bilateral airspace disease is not significantly changed. No pneumothorax or significant pleural effusion. Heart size and mediastinal contours are stable. Pulmonary vascular congestion is stable. Impression: Stable appearance of the chest. History of Present Illness HPI: Mr Kilgore is a pleasant 78 old male who presented to the emergency room last evening for evaluation of cough, chills, nausea and vomiting. Patient reports he 1st began having symptoms last Wednesday 06/06 following volunteering at [facility]. He thought at that time that he perhaps had food poisoning. He got home in the afternoon and had persistent vomiting and diarrhea 2-3 days. He noticed that he had started have a small cough prior to this. Over the past 24 hours. He is "fill worse, although the GI symptoms have improved. He started having chills, fever with increased cough. At times he noted feeling short of breath. Reports diminished appetite, was unable to keep in oral fluids or solids for the past 2 days. Given worsening symptoms as in to the emergency room for acute evaluation. 1st is did reveal leukocytosis with white count 13.2, 19% bandemia. Potassium was found be slightly low at 3.5 and LFTs elevated with an AST of 94 and ALP of 66. Initial venous lactate was 1.4. Urinalysis showing 3+ protein, ketones, blood, bilirubin, and 2+ bacteria. In the emergency room, he was tachycardic up to 107 and tachypneic 30+/min. He was afebrile with a temperature max of 99.1, however, he did feel chills. Room air saturations dipped to 89% and patient was placed on oxygen by nasal cannula.'s x-ray did reveal pneumonia. Given these findings, accompanied with clinical symptoms. Patient was admitted as an inpatient under the hospitalist services for continued evaluation and treatment. For complete details of the H&P refer to that document. Objective Vital signs: Temperature 97.2 F 06/20/18 13:58 Pulse Rate 76 06/20/18 13:58 Respiratory Rate 22 06/20/18 13:58 Blood Pressure 105/62 06/20/18 13:58 Pulse Oximetry 97 06/20/18 13:58 Rhythm: Atrial Fibrillation with Normal Ventricular Rate Height/Weight/BMI: Height 1.7 m Weight 107.9 kg Body Mass Index 37.1 Hospital Course This is a general summary of the patient's hospital course. For more details refer to the complete medical record. Hospital course: 06/11/18 Admit to inpatient status under the care of Dr. Urbina for sepsis and pneumonia. Will continue on IV Rocephin and IV Azithromycin for pulmonary coverage. Sputum cultures pending. will repeat a venous lactate as the last one did trend up. Continue on scheduled DuoNeb breathing treatments 4 times a day. Currently on 2 liters of oxygen by nasal cannula. Consultation placed to speech therapy given question for dysphagia. Recent Vomiting, hx of Presbyesophagus. Replace oral potassium and monitor. Home antihypertensives remain on hold at time of admission given sepsis. This patient on cardiac telemetry. Given irregular heartbeat and known history of atrial fibrillation. SCDs to bilateral lower extremity for DVT prophylaxis. Check CMP tomorrow morning to follow elevated LFTs. Consultation with PT and OT, Given patient's weakness secondary to acute illness. Addendum: Progressive deterioration in respiratory status through the day prompted switching from ceftriaxone to Zosyn for broader coverage and anaerobic coverage. Later transferred to ICU and diuresis initiated due to concern that he was becoming volume overloaded. Echo ordered for a.m. 06/12/18 Continue Zosyn and azithromycin for broader coverage and anaerobic coverage given known history of presbyesophagus and risk of aspiration. Respiratory viral panel negative, urine antigens pending as is sputum culture. Afebrile overnight, appears clinically improved this morning overall. Continue aggressive breathing treatments and Solu-Medrol for additional 24 hours after which will begin tapering. Discussed with RT-Acapella to be initiated. Volume overloaded with development of acute congestive heart failure and component of pulmonary edema following volume replacement yesterday. Now known to have moderately severe aortic stenosis by echo this morning. Cardiology consulted. Continue diuresis initiated yesterday evening. Blood pressure improved from yesterday, no recurrent "spells". Ongoing potassium replacement. Resolution of abnormal liver enzymes. 06/13/18 Patient reports clinical improvement, afebrile, decreasing cough and improved exertional tolerance. Continue Zosyn; complete 3 days azithromycin today. Sputum culture/blood cultures pending. Chest x-ray in a.m. White count climbing but no sign of worsening infection; likely due to steroids. Begin titrating steroid dose; continue breathing treatments and Acapella with treatments. Diuresed well yesterday, now has net negative fluid balance compared to admission. Stable cardiac rhythm, persistent low-grade tachycardia, metoprolol dose increased by cardiology for improved rate control. INR remains elevated, low-dose vitamin K given to prevent further climb & anticipate stabilization as oral intake improves & following discontinuation of azithromycin. Mental status clearing, appears to in the evening-continue to monitor. Requires ongoing potassium supplementation-recheck potassium later today to determine if additional potassium needed. 06/14/18 Continued clinical improvement, partial clearing on chest x-ray. With identification of Haemophilus influenza will resume ceftriaxone and discontinue Zosyn. Continue to monitor leukocytosis with change in antibiotics and as steroids tapered. If doing well tomorrow will convert prednisone. Heart rate improving although tachycardic with minimal activity. Metoprolol increased yesterday BUN/creatinine up slightly today-Lasix decreased to daily. Potassium is stabilized, decrease potassium supplement in conjunction with decreased diuresis. Valvular heart disease present-aortic stenosis not adequately visualized on transthoracic study -anticipate SIRISHA in the near future with left heart catheter. Mental status significantly improved from first 2 days in the hospital. INR down slightly today but remains super-therapeutic, warfarin remains on hold. 06/15/18 Continued progress, day 5 of antibiotics for Haemophilus influenza pneumonia. Afebrile, white count improving as is oxygen demand. Convert to prednisone po. Continue diuresis with Lasix daily; anticipate SIRISHA and left heart catheter in near future. Heart rate relatively well controlled, intermittent tachycardia-primarily with activities. Blood pressure stable. Fasting blood sugars modestly elevated-A1c in a.m. Loose stools described today, C. difficile PCR will be checked. 06/16/18 Continue with ceftriaxone. Day 6 of antibiotics for Haemophilus influenza pneumonia. Prednisone at 60mg (Day #2). Lasix increased to 40mg IV q8 hours to help motivate fluid. Creatinine stable at 0.8. Metoprolol increase to 100mg BID by cardiology to help heart rate. Anticipate SIRISHA and left heart catheter in near future. A1c with slight elevation at 6.4%, C. diff PCR negative. Tolerating therapy to improve functional status. Likely need skilled care post discharge. INR improving but remains super-therapeutic at 3.51, warfarin remains on hold. Possible transfer to medical floor - would continue CCU care if SIRISHA planned in near future. 06/17/18 SIRISHA/Cardioversion attempted today, but patient not able to convert to sinus. Amiodarone drip started by cardiology and plans reattempt tomorrow. Continue with ceftriaxone. Day 7 of antibiotics for Haemophilus influenza pneumonia. Prednisone at 60mg (Day #3), will decrease to 40mg tomorrow. Chest X-ray without change. O2 needs at 3L currently. Lasix decreased to 40mg IV daily. Creatinine stable at 0.8. Potassium 4.2 with Mg 2.2. INR decreased to 2.71. Will continue with CCU care and monitoring as repeat bedside cardioversion planned for tomorrow. 06/18/18 SIRISHA/Cardioversion attempted today, but patient not able to convert to sinus. Amiodarone discontinued and cardiology working on rate control. Continue with ceftriaxone. Day 8 of antibiotics for Haemophilus influenza pneumonia. Prednisone at 40mg (Day #1). O2 needs with decrease - on RA this morning, but O2 needed post cardioversion; wean as able. Lasix decreased to 40mg po daily. Creatinine 1.0 with potassium 4.0. INR decreased to 2.40. Will give 2.5mg warfarin today. Will discontinue Larios cath in am. Bladder retraining has been occurring. Patient working with therapy to improve functional status. Nursing to help ambulate TID. With encouragement from his daughter and myself, patient is leaning towards Skilled care at time of discharge. Medically stable for transfer to tele floor for continuation of care. 06/19/18 Clinically improving. Tolerating therapy, strength increasing. CXR showing interval improvement. O2 needs decreasing. Continue with ceftriaxone. Day 9 of antibiotics for Haemophilus influenza pneumonia. Prednisone at 40mg (Day #2). Will decrease to 20mg tomorrow. INR decreased to 1.97. Will give 4mg warfarin today. Discussed with Pharm. Larios removed - bladder scans as needed. has made arrangements for skilled at discharge. Possible discharge tomorrow if continues to do well. 06/20/18 Doing well. Maintaining saturations off O2. Breathing improving. Eating well. Urinating well. Vitals stable. Afebrile. Medically stable for discharge to long-term. Has had 10 days of antibiotic treatment - course completed. Will continue with Prednisone 20mg daily for 4 more days and then can stop. Continue with home Coumadin dosage. Medication changes: Norvasc stopped. Metoprolol tartrate increased to 100mg BIDWM (prior was 50mg BIDWM). Furosemide 40mg daily with potassium 20mEq with breakfast. Likely need to decrease or stop furosemide due to aortic stenosis. Monitor for dizziness with positional changes. DuoNeb BID and albuterol prn. Likely able to change DuoNeb to prn as breathing improves. Mucinex DM BID for 1 week. Ricola as needed. PT/OT to help improve functional status. BMP and INR on 06/24 secondary to medication use. F/U with Dr Navarro in 1 week. F/U with Dr Lund in 2 - 4 weeks for follow up and referral to EP for ablation. See orders for details. Time spent with patient: greater than 35 minutes Resuscitation Status: Full Code Discharge Plan - Discharge Disposition Discharge Date: 06/20/18 Disposition: 03 To [facility] Not [facility] (SNF) *Condition: Improved Reason For Visit (Visit label in EMR): CAP - Discharge Medications *Discharge Medications: New Albuterol Neb (0.5%) [Proventil Neb (0.5%)] 5 mg AEROSOL Q2H PRN each PRN Reason: Shortness Of Air Albuterol/Ipratropium [Duoneb] 3 ml AEROSOL RTBID each Furosemide [Lasix 40 mg Tab] 40 mg PO DAILY #30 tab Guaifenesin/Dm [Mucinex Dm] 1 tab PO BID #14 tab Menthol Cough Drops [Ricola Sf] 1 lozenge MM PRN PRN lozenge PRN Reason: Cough Potassium Chloride [K-DUR 20 mEq Tablet] 20 meq PO WB #30 tab PredniSONE [Deltasone 20 mg] 20 mg PO WB #4 tab Senna + Docusate [Senna Plus Tablet] 1 tab PO BID PRN tab PRN Reason: Constipation Metoprolol Tartrate [Lopressor] 100 mg PO BIDWM #60 tab Continue Lisinopril [Prinivil] 10 mg PO DAILY Cholecalciferol (Vitamin D3) [Vitamin D3] 1,000 unit PO HS Warfarin [Coumadin] 2.5 mg PO SUTUWETHSA@1999 Citalopram [Celexa] 20 mg PO HS Simvastatin [Zocor] 40 mg PO HS Ezetimibe 10 mg PO HS Latanoprost 1 drop EACH EYE HS Acetaminophen [Acetaminophen Extra Strength] 1,000 mg PO Q6H PRN PRN Reason: Pain Aspirin/Acetaminophen/Caffeine [Excedrin Extra Strength Caplet] 2 tab PO PRN PRN PRN Reason: Pain Omeprazole [Prilosec] 20 mg PO ACB Warfarin [Coumadin] 5 mg PO MOFR@1999 Discontinued Amlodipine [Norvasc] 5 mg PO DAILY Metoprolol Tartrate [Lopressor] 50 mg PO BID - Discharge Packet/Instructions *Diet: No added salt *Activity: As tolerated, increase with PT/OT. *Pain Management/Treatment: Tylenol as needed for pain. *Wound Care: N/A *Expected Signs/Symptoms: Improvement of breathing and functional status. *Notify Physician if: Temp >100.4. Chest heaviness, pressure, pain, or palpitations. Increasing difficulty breathing. Any other worrisome symptom. *During Business Hours Contact: Nursing staff at [facility] *After Business Hours Contact: Nursing staff at [facility]. *Pending Lab/Results: No Pending Lab - Referrals/Follow Up *Referrals/Follow Up: Braden Lund MD [Physician] - 3 Weeks (Hospital follow up for afib - failed cardioverson x2; possible referral to EP for ablation. ) Karthik Navarro MD [Primary Care Provider] - 1 Week (Hospital follow up for pneumonia/resp failure. On Skilled at [facility]. ) - Patient Handouts Patient Handouts: Community Acquired Pneumonia (GEN) - Dismissal Complete Discharge Instructions are:: Complete Physician Narrative - Narrative Physician: Leo Scott MD Attestation Narrative: Date: 06/20/18 Time: 1516 I have independently interviewed and examined patient prior to discharge. See my progress not for details. Medically stable for discharge to skilled.
== END 2018-06-20 13:45 | DRG 871 ==
LOC: ED 19:14 → SUATTDRO 22:17 → EDHOLD 22:17 → MED 22:30 → CCU 06-11 20:19 → MED 06-18 17:30
PROVIDERS: ADMIT Internal Medicine; ATTEND Hospitalist